=== PATIENT | male | born 1940 | race Caucasian/White ===

== ENCOUNTER 2016-09-28 23:15 | Inpatient (IN) | payer BC ==
--- NOTE | ~2016-09-28 | CN ---
Consultation Report [facility] [address] [place]. [address] NAME: FABIANA SPENCER : 44 STATUS : ADM IN [facility]#: [id number] AGE: 76 ADM/REG DATE : 09/29/16 MR#: [id number] REPORT SERV DATE: 09/30/16 DICTATED BY: GLORIA PORTER DATE: 09/29/16 REPORT STATUS : Draft TRANSCRIBED BY: MODL DATE: 09/29/16 GI CONSULTATION DATE OF CONSULTATION: 09/29/2016 A 76-year-old male patient who was admitted on 09/29/2016. REASON FOR CONSULTATION: Evaluation and management of upper GI bleeding and acute blood loss anemia. HISTORY OF PRESENT ILLNESS: Mr. Spencer is a 76-year-old male patient, who has been seen by Dr. Arauz in the past who presented to [facility] with a chief complaint of weakness, syncopal episode, and dark black tarry stools. The patient states that he had some abdominal discomfort yesterday morning, some dry heaves but no vomiting, became weak. He states he had around 15 black bowel movements yesterday morning. He passed out in his floor. His neighbor found him who activated 911. He was brought in, he was found to have a hemoglobin of 4.9 with a hematocrit of 16.2 with elevated INR of 7.9. He does have a notable history of atrial fibrillation, on chronic Coumadin therapy as well as alcohol abuse, and cirrhosis of the liver. Presently he has been transfused two units of packed red blood cells but no recheck is available and he has also received 2 units of FFP. He states his last drink of alcohol was yesterday morning. He admits to drinking at least a 12-pack of beer a day as well as various types of liquor including what he states recently has been [place]. He states that he has never had DTs before. I have discussed with him he will undergo an EGD either later today or first thing in the morning after his hemoglobin has been adequately treated as well as his INR has been brought down to at least 1.8 or less. Presently he is stable. His vital signs are stable. He is not on any pressors. He is on a Protonix drip as well as an octreotide drip. He had a CT scan of the abdomen and pelvis only showing cardiomegaly and marked cirrhosis. PAST MEDICAL HISTORY: Positive for type 2 diabetes, urinary tract infection, atrial fibrillation on chronic Coumadin therapy with history of ablation as well as cardioversion, hypothyroidism, peripheral neuropathy, hypertension, COPD, alcohol abuse, pneumothorax, carpal tunnel syndrome with release, hemoptysis, BPH with obstruction, Tania-Camacho tear, laminectomy, and chronic kidney disease stage III. SOCIAL HISTORY: Past history of tobacco. He continues to drink what he states is a 12-pack of beer as well as liquor including [place]. No illicit drugs. FAMILY HISTORY: Negative from a GI standpoint. ALLERGIES: NO KNOWN ALLERGIES. HOME MEDICATIONS: Bumex; Coreg; Cardura; Combivent; levothyroxine; and Coumadin. REVIEW OF SYSTEMS: Consultation Report [facility] [id number] [place]. [address] NAME: FABIANA SPENCER : 44 STATUS : ADM IN [facility]#: [id number] AGE: 76 ADM/REG DATE : 09/29/16 MR#: [id number] REPORT SERV DATE: 09/30/16 DICTATED BY: GLORIA PORTER DATE: 09/29/16 REPORT STATUS : Draft TRANSCRIBED BY: JORDAN DATE: 09/29/16 A 10-point review of systems has been obtained with pertinent positives being addressed in the history of present illness. PHYSICAL EXAMINATION: VITAL SIGNS: Temperature 97.9, pulse 94, respirations 17, and blood pressure 111/53. NEUROLOGIC: Reveals an alert, obese male, resting in bed with no obvious focal deficits. GENERAL: He is cooperative. He is in no obvious current distress. He is awake. He is oriented x3. HEAD, EARS, EYES, NOSE, AND THROAT: Anicteric. Pupils equal, round, and reactive to light and accommodation. Normocephalic and atraumatic. NECK: No JVD. No palpable nodes. Supple. LUNGS: Diminished at the bases as well as in the upper lobes without rhonchi or wheeze. CARDIOVASCULAR SYSTEM: Regular rate and rhythm. S1, S2. ABDOMEN: Soft and round. Nondistended. Active bowel sounds in all four quadrants. No rebound, guarding, or organomegaly elicited on exam. EXTREMITIES: 1+ bilateral lower extremity edema. SKIN: Warm, dry, and intact. PERTINENT LABORATORY DATA: Sodium 137, potassium is 3.7, BUN is 37, creatinine is 1.45. White count is 6.4, hemoglobin 4.9, hematocrit 16.2, and platelet count of 109 with an INR of 7.9. Total bilirubin 1.2, alkaline phosphatase 77, ALT 17, AST 36, and albumin is 2.9. His lactate is 5.4. Alcohol level was 45. ASSESSMENT: 1. Upper GI bleed with melena. Differential diagnosis includes peptic ulcer disease, esophageal varices, portal hypertensive gastropathy, AVMs, neoplasm. 2. Acute blood loss anemia. 3. Coagulopathy. 4. History of alcohol abuse. 5. History of atrial fibrillation on chronic Coumadin therapy. 6. Cirrhosis of the liver. PLAN: 1. May have a few ice chips. 2. Transfuse packed red blood cells as well as FFP. 3. Give vitamin K. 4. Most likely EGD in the morning but we will re-evaluate this afternoon in case he needs endoscopy this afternoon. Presently, he has not passed any more blood since coming into the hospital. I did discuss the case with . We will plan on endoscopy and other recommendations to follow. DG/MODL Consultation Report [place] [address] [place]. [address] NAME: FABIANA SPENCER : 44 STATUS : ADM IN PAT#: [id number] AGE: 76 ADM/REG DATE : 09/29/16 MR#: [id number] REPORT SERV DATE: 09/30/16 DICTATED BY: GLORIA PORTER DATE: 09/29/16 REPORT STATUS : Draft TRANSCRIBED BY: JORDAN DATE: 09/29/16 YENIFER Acevedo / [id number] CC: Aline Turner M.D.
--- NOTE | ~2016-09-28 | HP ---
History And Physical [place] [id number] [facility] [place]. [address] NAME: FABIANA SPENCER : 44 STATUS : ADM IN PAT#: [id number] AGE: 76 ADM/REG DATE : 09/29/16 MR#: [id number] REPORT SERV DATE: 09/29/16 DICTATED BY: NICKIE TURNER DATE: 09/29/16 REPORT STATUS : Draft TRANSCRIBED BY: MODNicola DATE: 09/29/16 DATE OF ADMISSION: 09/29/2016 Care of this patient commenced at 3: 20 a.m., and ended at 4:20 a.m., for a total of 60 minutes of critical care time. HISTORY OF PRESENT ILLNESS: This is a 76-year-old patient with known history of type 2 diabetes mellitus, alcohol abuse, atrial fibrillation, hypertension on Coumadin, who presents to the emergency room with a chief complaint of feeling weak and having a syncopal episode at home. The patient complains of some abdominal pain and nausea, but had no vomiting and actually became so weak that he passed out and was noted to have black stool. Black stool and symptoms of weakness have probably been going for at least 1-2 days. The patient was found by his neighbor who brought him to the emergency room. He was evaluated there and was found to have an INR of 7.5 and hemoglobin of 4.9. CT scan of the abdomen and pelvis was done and showed no evidence of any abnormalities. Two large bore IV was started and patient is currently undergoing blood transfusion and then to receive fresh frozen plasma and has already received 10 mg of IV vitamin K. He was started on octreotide and Protonix drip, and is awaiting a bed assignment. Blood pressures have been relatively stable throughout his stay in the ER. So, the patient has no known drug allergies, however, his medication list is questionable and the patient does not seem to remember all of his medications and those will need to be confirmed once the exact med list is available. But, it looks like the patient may be on Bumex, Coreg, Cardura, Combivent inhalers, levothyroxine, and warfarin at home. PAST MEDICAL HISTORY: 1. Significant for type 2 diabetes mellitus. 2. Urinary tract infection. 3. Chronic corneal disease. 4. Atrial fibrillation with ablation and then recurrent atrial fibrillation and eventually the patient underwent direct current cardioversion in 2015 and is pretty much remained in normal sinus rhythm. 5. Hypothyroidism. 6. Peripheral neuropathy. 7. Hypertension. 8. COPD. 9. History of pneumothorax 13 years ago. 10.Carpal tunnel release. 11.Hemoptysis that was evaluated by bronchoscopy in December of 2014. 12.BPH with obstruction. 13.History of Tania-Camacho tear. 14.Laminectomy L3-S1 in [address] Alejandre. 15.History of delirium tremens in 2015. 16.CKD stage III. SOCIAL HISTORY: The patient smokes cigar and cigarettes rather 2 to 3 packs a day for many years and then quit about 13-14 years ago. He, however, continues to drink beer sometimes History And Physical [address] [address] NAME: FABIANA SPENCER : 44 STATUS : ADM IN [facility]#: [id number] AGE: 76 ADM/REG DATE : 09/29/16 MR#: [id number] REPORT SERV DATE: 09/29/16 DICTATED BY: NICKIE TURNER DATE: 09/29/16 REPORT STATUS : Draft TRANSCRIBED BY: JORDAN DATE: 09/29/16 as much as 12 pack a day. His last intake of alcohol was yesterday. He has been at least twice, has 3 children, and currently lives alone. FAMILY HISTORY: Significant for myocardial infarction and Alzheimer's in 1 of his sisters. REVIEW OF SYSTEMS: Per history of present illness. Although, the patient does mention some soreness right side of his chest apparently he had a fall after losing his balance while sitting on the stool and has some pain, but otherwise he denies any chest pain. Currently, he is not nauseated. During the course he has had increased leg swelling for which he is instructed to take Bumex. He denies any fevers or chills or productive cough, and the remainder of a 12-point review of systems is unremarkable. PHYSICAL EXAMINATION: VITAL SIGNS: Currently, the patient's blood pressure is 110/53. O2 saturation is 99% on room air, respiratory rate is 17, temperature is 97.9, and pulse is 94 beats per minute and normal sinus rhythm. The patient is alert and awake, following commands. Although, forgetful at times. SKIN: Warm and dry. HEENT: Head is atraumatic and normocephalic. Pupils are sluggishly reactive. Sclerae anicteric. Conjunctivae are pale. Nasal mucosa within normal limits. Oral mucosa is moist. Tongue is midline. Dentition is fair. NECK: Supple without JVD, lymphadenopathy, or thyromegaly. RESPIRATORY: Lungs are diminished at the bases with occasional crackles. CARDIAC: Reveals regular rate and rhythm. No significant murmurs are heard. ABDOMEN: Obese and nondistended, non-firm. Bowel sounds are present. There is no pain to palpation of the abdomen. No ascites is noted. RECTAL/GENITAL: Deferred. EXTREMITIES: Without cyanosis, clubbing, but there is lower extremity edema at least 1+. NEUROLOGIC: Cranial nerves 2 through 12 are grossly intact. Motor and sensory are intact. There are no focal findings on physical exam. LABORATORY DATA: His current lab work shows a lactic acid level 5.4, sodium of 137, potassium of 3.7, chloride of 97, bicarbonate of 22, BUN 37, creatinine 1.45. Blood sugar is 103, alcohol level is 45. LFTs are within normal limits. White cell count is 6.4, hemoglobin is 4.9, hematocrit is 16, platelet count is 109,000. INR is 7.9. EKG shows ST- segment depressions in the lateral leads suggestive of ischemia. Chest x-ray shows no pulmonary vascular congestion. ASSESSMENT AND PLAN: 1. This is a 76-year-old patient with known history of alcohol abuse who presents with syncope, weakness, and black stools suggestive of an upper GI bleed. The plan of that will be to continue the octreotide drip, Protonix drip, serial H and H will be done and the patient will be transfused 1 unit for a hemoglobin of less than 7.5, INR will be followed closely and FFP and vitamin K will be given as indicated and Coumadin of course will be on hold. 2. The patient's home medications will need to be confirmed. History And Physical [address] [place]. [address] NAME: FABIANA SPENCER : 44 STATUS : ADM IN [facility]#: [id number] AGE: 76 ADM/REG DATE : 09/29/16 MR#: [id number] REPORT SERV DATE: 09/29/16 DICTATED BY: NICKIE TURNER DATE: 09/29/16 REPORT STATUS : Draft TRANSCRIBED BY: MODNicola DATE: 09/29/16 3. Atrial fibrillation. The patient currently in sinus rhythm. 4. COPD, will need bronchodilator protocol. 5. CKD stage III follow electrolytes closely. 6. ETOH abuse. Follow for signs of delirium tremens. Since the patient has a history of this before and has a blood alcohol level that is currently high. 7. Deep venous thrombosis prophylaxis will be with SCDs when needed. 8. GI prophylaxis, the patient already on Protonix drip. 9. The patient will be seen by Gastroenterology and may need an EGD, will be kept n.p.o. 10.All anti-hypertensive medications will be held. 11.Hypothyroidism, TSH will be checked and Synthroid adjusted as needed. 12.Type 2 diabetes mellitus, we will institute subcu sliding scale insulin. So, total critical care time spent on this patient was 60 minutes. He is in critical condition and is at risk for hemodynamic, hepatic, neurologic, and renal failure and decompensation. He is in need of careful volume resuscitation with blood products, neurologic monitoring and treatment, hemodynamic assessment, and assessment and treatment of complex metabolic derangements. /MODNicola Nickie Turner M.D. / [id number] CC: Nickie Turner M.D.
--- NOTE | ~2016-09-28 | OP ---
Record Of Operation [facility] [address] [place]. [address] NAME: FABIANA SPENCER : 44 STATUS : ADM IN [facility]#: [id number] AGE: 76 ADM/REG DATE : 09/29/16 MR#: [id number] REPORT SERV DATE: 10/21/16 DICTATED BY: NELL HANEY DATE: 10/21/16 REPORT STATUS : Draft TRANSCRIBED BY: MODL DATE: 10/21/16 DATE OF PROCEDURE: 10/21/2016 PREOPERATIVE DIAGNOSES: 1. Respiratory failure. 2. Ventilator dependence. POSTOPERATIVE DIAGNOSES: 1. Respiratory failure. 2. Ventilator dependence. PROCEDURE: Tracheostomy, #8 cuffed Shiley trach tube. SURGEON: Nell Haney M.D. ANESTHESIA: General. COMPLICATIONS: None. COUNTS: All counts correct following the procedure. ESTIMATED BLOOD LOSS: 2 mL. PREOPERATIVE INFORMED CONSENT: We discussed risks and benefits of surgery including, but not limited to bleeding, infection, possible loss of airway, possible carotid fistula, possible tracheoesophageal fistula, possible tracheomalacia, and consent is on the chart. PROCEDURE IN DETAIL: The patient was brought to the operating suite and placed on the operating table in the supine position. General endotracheal anesthesia was initiated through the previously existing endotracheal tube. The neck was cleaned, prepped and draped in the usual sterile fashion. A transverse incision was marked out and then using electrocautery, an incision was made with sharp dissection down through the subcutaneous tissues down to the strap muscles. The midline fascia was divided and the strap muscles were retracted laterally. The thyroid isthmus was dissected off the anterior tracheal wall and divided using electrocautery, taking care to cauterize all surrounding vessels. A peanut pusher was used to clean off the anterior tracheal wall and the space between the second and third tracheal ring was scored using electrocautery. A #15-blade scalpel was used to perform tracheostomy. An inferior flap was created using curved Yun scissors and a stay suture was placed on the lower tracheal flap. The endotracheal tube was moved above the tracheostomy site and a #8 cuffed Shiley trach tube was placed through the tracheostomy site without difficulty. The endotracheal tube was removed. The tracheostomy tube was then reconnected to the ventilator and the patient was noted to have good CO2 return and good breath sounds bilaterally. The tracheostomy tube was then sutured to the skin using 2-0 silk suture and a Record Of Operation [address] [place] [facility] [address] NAME: FABIANA SPENCER : 44 STATUS : ADM IN [facility]#: [id number] AGE: 76 ADM/REG DATE : 09/29/16 MR#: [id number] REPORT SERV DATE: 10/21/16 DICTATED BY: NELL HANEY DATE: 10/21/16 REPORT STATUS : Draft TRANSCRIBED BY: MODL DATE: 10/21/16 Thony prado. The patient was taken to the Intensive Care Unit in stable condition. KELLY/JORDAN Nell Haney M.D. / [id number] CC: Aline Turner M.D.
--- NOTE | ~2016-09-28 | DS ---
Discharge Summary [facility] [address] [place] [place]. [address] NAME: FABIANA SPENCER : 44 STATUS : DIS IN PAT#: [id number] AGE: 76 ADM/REG DATE : 09/29/16 MR#: [id number] REPORT SERV DATE: 12/05/16 DICTATED BY: RAMON COSTA DATE: 12/05/16 REPORT STATUS : Draft TRANSCRIBED BY: MODL DATE: 12/05/16 ADMISSION DATE: 09/29/2016 DISCHARGE DATE: 11/04/2016 DISCHARGE DIAGNOSES: 1. Acute hypoxic respiratory failure. 2. Alcohol withdrawal. 3. Acute encephalopathy. 4. Multiple pontine cerebrovascular accidents. 5. Dysphagia. 6. Chronic atrial fibrillation. 7. Hypothyroidism. 8. Type 2 diabetes. 9. Right humerus fracture status post fall. CONSULTS: 1. Critical Care Medicine. 2. ENT. 3. Neurology. 4. GI. PROCEDURES: 1. Intubation on 10/05/2016. 2. Second intubation on 10/14/2016. 3. Tracheostomy on 10/21/2016. 4. PEG tube placement on 10/26/2016. HOSPITAL COURSE: Please see dictated H and P and consult notes as well as interim discharge summaries for full patient history and presentation. In brief summary, the patient is a 76- year-old gentleman who was initially admitted with an upper GI bleed, who then developed alcohol withdrawal with acute respiratory failure and pneumonia. The patient's hospital course was also complicated briefly by shock, acute renal failure, and atrial fibrillation. The patient spent some time in the ICU and was unable to be weaned from the ventilator. He was extubated and reintubated several times and eventually had to require tracheostomy and PEG tube placement. He was then transitioned to our intermediate care unit where he continued to do well. Eventually, the patient was stabilized and will be sent to a long- term vent weaning facility in stable condition. DISCHARGE MEDICATIONS: See please discharge medication reconciliation form. DISPOSITION: The patient was discharged to LTAC in stable condition. FOLLOWUP: The patient will follow up with his physicians at the long-term vent care facility. Discharge Summary [facility] [address] [place] [place]. [address] NAME: FABIANA SPENCER : 44 STATUS : DIS IN PAT#: [id number] AGE: 76 ADM/REG DATE : 09/29/16 MR#: [id number] REPORT SERV DATE: 12/05/16 DICTATED BY: RAMON COSTA DATE: 12/05/16 REPORT STATUS : Draft TRANSCRIBED BY: MODL DATE: 12/05/16 NICANOR/JORDAN Ramon Costa MD / [id number] CC: Aline Turner M.D.
--- NOTE | ~2016-09-28 | OP ---
Record Of Operation [facility] [address] [place]. [address] NAME: FABIANA SPENCER : 44 STATUS : ADM IN [facility]#: [id number] AGE: 76 ADM/REG DATE : 09/29/16 MR#: [id number] REPORT SERV DATE: 10/14/16 DICTATED BY: TAMIKA OCAMPO DATE: 10/14/16 REPORT STATUS : Draft TRANSCRIBED BY: MODNicola DATE: 10/14/16 DATE OF PROCEDURE: PROCEDURE PERFORMED: Oroendotracheal intubation. PREOPERATIVE DIAGNOSIS: Respiratory failure. POSTOPERATIVE DIAGNOSIS: Respiratory failure. DESCRIPTION OF PROCEDURE: The patient was on BiPAP with dried secretions and having difficulty handling secretions. He received 10 mL of IV propofol. We then used a #4 GlideScope blade to look at his airways. He had thick crusty secretions that coated the end of the GlideScope and we had to remove with that out to be able to see beyond it. They were too thick for suction. Using the GlideScope, we were able to directly visualize the vocal cords. We advanced a size 8 oroendotracheal tube beyond the vocal cords without difficulty. We had good color change on the end-tidal CO2 indicator, good direct visualization of the tube advancing beyond the vocal cords and good auscultation of breath sounds bilaterally. On the ventilator now his oxygen saturations is 100%. The patient had no complications. IMPRESSION: Successful oroendotracheal intubation. YASSINE/JORDAN Tamika Ocapmo M.D. / [id number] CC: Kassandra Hawk M.D.
--- NOTE | ~2016-09-28 | CN ---
Consultation Report [facility] [address] [place]. [address] NAME: FABIANA SPENCER : 44 STATUS : ADM IN [facility]#: [id number] AGE: 76 ADM/REG DATE : 09/29/16 MR#: [id number] REPORT SERV DATE: 10/18/16 DICTATED BY: NELL HANEY DATE: 10/18/16 REPORT STATUS : Draft TRANSCRIBED BY: MODL DATE: 10/18/16 CONSULTATION DATE OF CONSULTATION: 10/18/2016 REASON FOR CONSULTATION: Tracheostomy. HISTORY OF PRESENT ILLNESS: Mr. Spencer is a 76-year-old gentleman admitted for multiple medical conditions primarily related to his alcohol abuse including a GI bleed and alcohol withdrawal syndrome. During course of his hospitalization he has required intubation on multiple occasions and most recently was discovered after one of his intubations had suffered a stroke with right-sided hemipareses. They have been unable to wean him from the ventilator. I have been called to see the patient regarding tracheostomy for long-term ventilator management. PAST MEDICAL HISTORY: Type 2 diabetes, UTI, chronic corneal disease, AFib with ablation and recurrent AFib and eventually underwent cardioversion in 2015, hypothyroidism, peripheral neuropathy, hypertension, COPD, carpal tunnel release, hemoptysis, BPH, Tania-Camacho tear, laminectomy L3 through S1 [place] [address] Alejandre, history of delirium tremens, CKD stage 3. SOCIAL HISTORY: The patient smoked cigarettes 2 to 3 packs a day for many years and quit about 13-14 years ago. However, he continues to drink alcohol as much as 12 pack a day, has at least twice, has 3 children, currently lives alone. FAMILY HISTORY: Myocardial infarction, Alzheimer's. PHYSICAL EXAMINATION: GENERAL: The patient is intubated and sedated. Opens his eyes to stimulation. He has dense right hemiparesis. HEENT: Both ears are clear. Nose is clear. Oral cavity, pharynx, endotracheal tube is in place. NECK: Supple. No palpable adenopathy or masses. IMPRESSION: 1. Respiratory failure, ventilator dependence. 2. Cerebrovascular accident with right hemiparesis. RECOMMENDATIONS: Agree with need for tracheostomy. We will discuss with patient's family and we will schedule it at some point in the future. MARYSE Consultation Report [facility] [address] [place]. [address] NAME: FABIANA SPENCER : 44 STATUS : ADM IN PAT#: [id number] AGE: 76 ADM/REG DATE : 09/29/16 MR#: [id number] REPORT SERV DATE: 10/18/16 DICTATED BY: NELL HANEY DATE: 10/18/16 REPORT STATUS : Draft TRANSCRIBED BY: JORDAN DATE: 10/18/16 Nell Haney M.D. / [id number] CC: Aline Turner M.D.
--- NOTE | ~2016-09-28 | OP ---
Record Of Operation [facility] [address] [place] [place]. [address] NAME: FABIANA SPENCER : 42 STATUS : ADM IN PAT#: [id number] AGE: 76 ADM/REG DATE : 09/29/16 MR#: [id number] REPORT SERV DATE: 09/30/16 DICTATED BY: YAMIL ESCUDERO DATE: 09/30/16 REPORT STATUS : Draft TRANSCRIBED BY: MODL DATE: 09/30/16 DATE OF PROCEDURE: 09/30/2016 INPATIENT PROCEDURE NOTE REASON FOR PROCEDURE: Melena and concern for GI bleeding. PROCEDURE PERFORMED: Upper endoscopy or EGD. PROCEDURE IN DETAIL: Procedure was performed without difficulty, and the patient tolerated the procedure well. Monitored anesthesia care was utilized for sedation. There were no immediate complications and estimated blood loss was minimal. After the patient was adequately sedated, the adult endoscope was advanced through the oropharynx and into the patient's esophagus without difficulty. There were no abnormalities or any signs of bleeding in the entire esophagus. Upon entry into the stomach, there were only scant traces of heme in the body and fundus; however, there was evidence of congestion in the prepyloric area and evidence of a 1 cm crated gastric ulcer just proximal to the pylorus. There were no stigmata of high risk for rebleeding. Biopsies were taken from around the edge of the crated ulcer for histology and for H. pylori assessment. Estimated blood loss was minimal. Examination of the duodenum was likewise unremarkable with no suggestion of any potential source of active bleeding. IMPRESSION: Crated gastric ulcer, likely source of the patient's melena, now with no further bleeding. Biopsies were taken of the ulcer edge for histology. RECOMMENDATIONS: 1. Would continue the patient on a continuous Protonix drip for another 48 hours and then switch to twice daily therapy which will need to be continued for 12 weeks. 2. Can start the patient on a clear liquid diet and advance cautiously over the next several days. 3. Will need repeat endoscopy for assessment of healing in 12 weeks. 4. Would wait to restart Coumadin for three days. [facility]/JORDAN Yamil Escudero MD / [id number] CC: Veda Cobb M.D.
--- NOTE | ~2016-09-28 | CN ---
Consultation Report [facility] [address] [place]. [address] NAME: FABIANA SPENCER : 44 STATUS : ADM IN [facility]#: [id number] AGE: 76 ADM/REG DATE : 09/29/16 MR#: [id number] REPORT SERV DATE: 10/09/16 DICTATED BY: DATE: REPORT STATUS : Draft TRANSCRIBED BY: MODL DATE: 10/09/16 NEUROLOGY CONSULTATION DATE OF CONSULTATION: 10/09/2016 REASON FOR CONSULT: Encephalopathy. HISTORY OF PRESENT ILLNESS: This is a 76-year-old male who presented to [facility] secondary to GI bleed, status post endoscopy. The patient was noted to have resolution of the GI bleed, was off propofol drip on 10/07/2016. However, despite being off propofol drip for almost 48 hours, the patient still was noted to only open his eyes and was not noted to have following commands or spontaneous movements. The patient also was noted to have hypernatremia was that corrected during the hospital stay and subsequently improved. The patient during the initial hospitalization was receiving IV multivitamin, thiamine, and folate secondary to chronic alcohol usage. The patient was on DT precaution during the hospital stay. No seizure-like activity was otherwise observed. Prior to the hospitalization, no reports of recent illness was noted. PAST MEDICAL HISTORY: Significant for type 2 diabetes, urinary tract infection, chronic corneal disease, as well as history of atrial fibrillation, status post ablation with recurrent atrial fibrillation. The patient was noted to have hypothyroidism, peripheral neuropathy, hypertension, COPD , history of pneumothorax in the distant past. The patient does have a history of hemoptysis evaluated with bronchoscopy in 2014, history of Tania- Camacho tear, history of chronic alcohol usage, as well as history of DT in 2014, and was noted to be CKD stage 3. SOCIAL HISTORY: The patient does smoke cigar as well as cigarette. The patient has had a history of alcohol usage. Apparently, the patient does not have current tobacco usage, quit roughly 13 years ago. FAMILY HISTORY: According to medical records, significant for myocardial infarction as well as Alzheimer's. REVIEW OF SYSTEMS: Unable to be obtained at this time secondary to the patient's current mental status. ALLERGIES: THE PATIENT REPORTS NO KNOWN DRUG ALLERGIES. CURRENT MEDICATIONS: Consist of Coumadin, IV thiamine, as well as IV vancomycin, Lopressor, NovoLog, Protonix , and Zosyn. The patient was given IV fluids secondary to hypernatremia. He also received one dose of morphine on 10/08/2016 at 1731 hours. If the patient is also on Cardene drip. PHYSICAL EXAMINATION: Consultation Report [facility] [address] [place] [address] NAME: FABIANA SPENCER : 42 STATUS : ADM IN PAT#: [id number] AGE: 76 ADM/REG DATE : 09/29/16 MR#: [id number] REPORT SERV DATE: 10/09/16 DICTATED BY: DATE: REPORT STATUS : Draft TRANSCRIBED BY: MODL DATE: 10/09/16 VITAL SIGNS: At the time of evaluation, the patient was noted to have vital signs with T- max of 100.4, heart rate of 93 to 121, respirations of 11 to 29, and blood pressure of 141 to 165 over 72 to 83. GENERAL: The patient is well developed, well nourished, in no acute distress. CARDIOVASCULAR: Regular rate and rhythm. No carotid bruits were otherwise auscultated. PULMONARY: Clear to auscultation bilaterally. NEUROLOGICAL: Generally, the patient was intubated, not on any sedation, nonverbal, not following commands. The patient will open eyes to noxious stimulation. At the time of my evaluation, the patient was noted to have left gaze preference, but was noted to have horizontal eye movement on oculocephalic maneuver. Trace blink to threat response was noted. Appeared to be somewhat more prominent on the left. The patient demonstrated bilateral corneal reflex as well as the gag reflex and demonstrated eye opening to noxious stimulation in bilateral face. The patient otherwise demonstrated an eye opening and grimace to noxious stimulation in bilateral upper extremity, not in bilateral lower extremities. Deep tendon reflex was attenuated throughout. The patient demonstrated no spontaneous movement of the bilateral upper or lower extremity at the time of my evaluation. Cerebellar and gait evaluation was unable to be obtained secondary to the patient's mental status and lack of spontaneous movement. LABORATORY STUDIES: Demonstrated white blood cell count of 19.5, hemoglobin of 9.9, hematocrit of 32.8, and platelet count of 240. The patient was noted to have procalcitonin of 1.21. Sodium of 153, potassium of 3.5, chloride of 117, bicarb 27, BUN of 22, creatinine of 1.15, glucose of 212, calcium of 8.9, magnesium 2.2. ABG shows pH of 7.48, pCO2 of 39, pO2 of 112, bicarb 27.8, O2 saturation of 98.5. Urinalysis demonstrated moderate leukocyte esterase, but negative nitrite that was performed on 10/07/2016. CT scan of the brain otherwise demonstrated generalized atrophy, but no acute process was seen. IMPRESSION: Encephalopathy. Propofol has been off since 10/07/2016. The patient still demonstrates minimal activity except for spontaneous eye opening as was to noxious stimulation. No clear movement of the extremity was seen during the evaluation. We will obtain EEG and MRI of the brain without contrast. We will recommend continue thiamine. We will also check ammonia level in the morning. I am at this time concerned for possible prolonged effect of sedation versus a metabolic etiology versus systemic infection versus likely multifactorial reason given hypernatremia also concern for possibility of [employer] process. We will check MRI of the brain for evaluation. RECOMMENDATION: 1. Supportive care. 2. MRI of the brain without contrast. 3. EEG. 4. Continue thiamine. 5. Ammonia level as well as TSH and free T4 level in the morning. Consultation Report [address] [place]. [address] NAME: FABIANA SPENCER : 42 STATUS : ADM IN [facility]#: [id number] AGE: 76 ADM/REG DATE : 09/29/16 MR#: [id number] REPORT SERV DATE: 10/09/16 DICTATED BY: DATE: REPORT STATUS : Draft TRANSCRIBED BY: JORDAN DATE: 10/09/16 [facility]/JORDAN Kaden Grimaldo MD / [id number] CC: Vead Domínguez MD
--- NOTE | ~2016-09-28 | EEG ---
Electroencephalogram [facility] [address] [facility] [place]. [address] NAME: FABIANA SPENCER : 44 STATUS : ADM IN PAT#: [id number] AGE: 76 ADM/REG DATE : 09/29/16 MR#: [id number] REPORT SERV DATE: 10/10/16 DICTATED BY: DATE: REPORT STATUS : Draft TRANSCRIBED BY: MODL DATE: 10/09/16 NEUROLOGY EEG REPORT CLINICAL INDICATION: Comatose state, encephalopathy. DISCUSSION: This EEG was performed using 10/20 electrode placement system. During the EEG study, symmetric background activity was noted with predominant occipital rhythm of roughly 6 hertz. Photic stimulation was performed with no obvious driving response. Generalized slowing was seen during the EEG study and throughout the EEG evaluation. Hyperventilation was subsequently not performed secondary to the patient's intubated status. The patient, otherwise, remains in like comatose state throughout the EEG study. No focal abnormalities, seizure activity, or seizure discharge was otherwise noted. INTERPRETATION: This EEG study obtained during like comatose state may be considered mildly abnormal secondary to presence of mild generalized slowing, but otherwise, no focal abnormalities, seizure activity, or seizure discharge was seen. Clinical correlation is recommended. [facility]/MODNicola Kaden Grimaldo MD / [id number] CC: Kassandra Hawk M.D.
--- NOTE | ~2016-09-28 | IDS ---
Interim Discharge Summary [facility] [address] [place]. [address] NAME: FABIANA SPENCER : 44 STATUS : ADM IN PAT#: [id number] AGE: 76 ADM/REG DATE : 09/29/16 MR#: [id number] REPORT SERV DATE: 10/28/16 DICTATED BY: NICKIE TURNER DATE: 10/28/16 REPORT STATUS : Draft TRANSCRIBED BY: MODL DATE: 10/28/16 ADMISSION DATE: 09/29/2016 DISCHARGE DATE: Date of previous interim discharge summary dictation is October 14. Date of today's interim summary dictation is October 28, 2016. For details of the patient's previous admission and hospital course up until the 14 of October, please see the interim discharge summary from the 14 of October. So since that time, the patient has failed extubation several times and required tracheostomy. This was done on the 21 of [address] Art Davenport and #8 cuffed Shiley trach was placed without difficulty. Since that time, we have been doing spontaneous breathing trials with the patient. He has done relatively well, although he still is unable to last the entire day without being put back on the vent. On the evening of the 27 of October, the patient had some respiratory difficulty. There was some concern about possible PE. A CTA of the chest was done and did not show any evidence of PE. The reason for this also was that there was some concern that the patient was not on significant anticoagulation; however, the patient does have a known history of atrial fibrillation and was on chronic Coumadin at home and that is what brought him to the hospital with a GI bleed. He had a gastric ulcer and as per EGD, Coumadin was held for a while, but then actually restarted and then stopped for the trach and then restarted and then stopped for the PEG. So, he has been on some form of Coumadin, but not quite therapeutic. In any event, CTA of the chest was done, and there was no evidence of pulmonary emboli. Extensive patchy infiltrates of the left lower lobe consistent with moderate large acute pneumonia were noted; however, and so the patient was cultured and started on Zosyn and vancomycin. So, the patient also required a brief period of Levophed, which is now currently off. Antibiotics are being continued. Of note, the patient was noted to have pretty watery diarrhea on the afternoon on the 28 of October and so a bowel management system was placed and stool for C. diff was sent. Dysphagia status post prolonged intubation and ischemic infarct within bilateral kaci as noted on 10 of October. The patient had been on quite a long course of thiamine and this has been discontinued. His encephalopathy is pretty much the same. He does not always follow commands, appears very weak, and this has really not changed. There is no evidence of any seizure activity. Because of the dysphagia and trach, the patient then had a PEG tube placed on the 25 of October and since that time, we have resumed his medications and tube feeds and he seems to be tolerating those well. ADMITTING DIAGNOSES: 1. Gastrointestinal bleed. Known history of alcohol abuse. So, hemoglobin has been stable and Coumadin has been restarted. We will need to follow hemoglobin and hematocrit closely since the patient has a known history of gastrointestinal bleeding. 2. Chronic obstructive pulmonary disease. The patient continues on bronchodilator therapy. 3. Hypothyroidism. Synthroid is continued. Interim Discharge Summary [address] [place]. [address] NAME: FABIANA SPENCER : 42 STATUS : ADM IN [facility]#: [id number] AGE: 76 ADM/REG DATE : 09/29/16 MR#: [id number] REPORT SERV DATE: 10/28/16 DICTATED BY: NICKIE TURNER DATE: 10/28/16 REPORT STATUS : Draft TRANSCRIBED BY: JORDAN DATE: 10/28/16 4. Type 2 diabetes mellitus. Sliding insulin scale and Levemir. 5. History of fracture, right humerus. No changes there. This is an old fracture as described in the previous interim discharge summary. 6. Right knee pleural effusion status post drainage by Dr. Pineda, remain stable. 7. Chronic atrial fibrillation. He has had an episode of atrial fibrillation with rapid ventricular response and was started on amiodarone drip, which has now been transitioned to a p.o. amiodarone, 200 mg b.i.d. If this controls his atrial fibrillation, may not need to necessarily be on Lopressor and this may even be discontinued, and as mentioned above, Coumadin has been restarted with close followup of hemoglobin and hematocrit and INR. Pharmacy is dosing the Coumadin. 8. Infectious disease. Just to summarize so far, the culture results of this patient; he had a sputum culture that was sent on the 05 of October that grew out Haemophilus influenza, methicillin-resistant Staphylococcus aureus, and Streptococcus agalactiae and this was treated and the patient also had an Escherichia coli urinary tract infection, which was also treated. The patient was then on vancomycin and Zosyn. Currently, there is a suspicion for left lower lobe pneumonia. He has been cultured again, and so we will need to see what that culture has grown out and then adjust antibiotics as needed and also there is a concern for possible Clostridium difficile and so as of this dictation, stool for Clostridium difficile is pending. Overall, the patient's condition has not markedly improved. Discharge planning is underway for possibly [facility]. I have discussed the patient's progress with his son, Jordan and he apparently is coming this weekend on the . Code status again was discussed and the patient remains a full code. /MODL Nickie Turner M.D. / [id number] CC: Nickie Turner M.D.
--- NOTE | ~2016-09-28 | EGD ---
EGD REPORT [facility] [address] [place]. [address] NAME: SALVADOR SPENCER : 42 STATUS : ADM IN PAT#: [id number] AGE: 76 ADM/REG DATE : 09/29/16 MR#: [id number] REPORT SERV DATE: 10/26/16 DICTATED BY: YAMIL ESCUDERO DATE: 10/26/16 REPORT STATUS : Draft TRANSCRIBED BY: [facility] DATE: 10/26/16 Endoscopy Center Patient Name: Salvador Spencer Date of : 1940 Attending MD: YAMIL ESCUDERO MD Procedure Date No Time: 10/26/2016 Procedure: Upper GI endoscopy Indications: Place PEG because patient is unable to eat, Place PEG due to aspiration risk, Place PEG because patient requires ventilator support Medicines: Monitored Anesthesia Care Complications: No immediate complications. Estimated blood loss: Minimal. Procedure: Pre-Anesthesia Assessment: - ASA Grade Assessment: IV - A patient with severe systemic disease that is a constant threat to life. After obtaining informed consent, the endoscope was passed under direct vision. Throughout the procedure, the patient's blood pressure, pulse, and oxygen saturations were monitored continuously. The GIF [id number] was introduced through the mouth, and advanced to the second part of duodenum. The upper GI endoscopy was accomplished without difficulty. The patient tolerated the procedure well. Findings: The examined esophagus was normal. The examined duodenum was normal. The entire examined stomach was normal. The patient was placed in the supine position for PEG placement. The stomach was insufflated to appose gastric and abdominal morales. A site was located in the body of the stomach with excellent transillumination and manual external pressure for placement. The abdominal wall was marked and prepped in a sterile manner. The area was anesthetized with 5 mL of 1% lidocaine. The trocar needle was introduced through the abdominal wall and into the stomach under direct endoscopic view. A snare was introduced through the endoscope and opened in the gastric lumen. The guide wire was passed through the trocar and into the open snare. The snare was closed around the guide wire. The endoscope and snare were removed, pulling the wire out through the mouth. A skin incision was made at the site of needle insertion. The externally removable 20 Fr EndoVive Safety gastrostomy tube was lubricated. The G-tube was passed over the guide wire through the mouth, and into the stomach. The trocar needle was removed, and the gastrostomy tube was pulled out from the stomach through the skin. The guide wire was removed, and the external bumper attached to the EGD REPORT [address] [place]. [address] NAME: SALVADOR SPENCER : 42 STATUS : ADM IN [facility]#: [id number] AGE: 76 ADM/REG DATE : 09/29/16 MR#: [id number] REPORT SERV DATE: 10/26/16 DICTATED BY: YAMIL ESCUDERO DATE: 10/26/16 REPORT STATUS : Draft TRANSCRIBED BY: [employer] DATE: 10/26/16 gastrostomy tube. The feeding tube was then cut to an appropriate length. The final position of the gastrostomy tube was confirmed by skin marking noted to be 3 cm at the external bumper. The final tension and compression of the abdominal wall by the PEG tube and external bumper were checked and revealed that the bumper was loose and lightly touching the skin. The feeding tube was capped, and the tube site was cleaned and dressed. Estimated blood loss was minimal. Impression: - An externally removable PEG placement was successfully completed. Recommendation: - Please follow the post-PEG recommendations including: antibiotic ointment to site, change dressing once per day, clean site with soap and water daily and dry thoroughly, remove dressing after 2 weeks, NPO x4 hrs then water today, may use PEG today for meds and water and may use PEG tomorrow for feedings. Procedure Code(s): --- Professional --- 68764, Esophagogastroduodenoscopy, flexible, transoral; with directed placement of percutaneous gastrostomy tube Diagnosis Code(s): --- Professional --- R63.3, Feeding difficulties Z43.1, Encounter for attention to gastrostomy Z99.11, Dependence on respirator [ventilator] status CPT copyright 2013 [employer]. All rights reserved. The codes documented in this report are preliminary and upon presales consultant review may be revised to meet current compliance requirements. Yamil Escudero MD YAMIL ESCUDERO MD 10/26/2016 12:36 PM This report has been signed electronically. Number of Addenda: 0 Note Initiated On: 10/26/2016 12:09 PM Scope Withdrawal Time 0 hours 0 minutes 0 seconds [address] [place] [address]
--- NOTE | ~2016-09-28 | OP ---
Record Of Operation [facility] [address] [place]. [address] NAME: FABIANA SPENCER : 44 STATUS : ADM IN [facility]#: [id number] AGE: 76 ADM/REG DATE : 09/29/16 MR#: [id number] REPORT SERV DATE: 10/05/16 DICTATED BY: TARA LLOYD DATE: 10/05/16 REPORT STATUS : Draft TRANSCRIBED BY: MODL DATE: 10/05/16 DATE OF PROCEDURE: 10/05/2016 PROCEDURE: Endotracheal intubation. INDICATION: Hypoxic respiratory failure. Pre-oxygenated 100% oxygen monitored by blood pressure, EKG, and pulse oximetry. Endotracheal tube 8.0 placed under direct laryngoscopic vision to 24 cm. cords confirmed by end-tidal CO2 monitor. Good breath sounds bilaterally. Sat 100%. Post-chest x-ray ordered. OG tube placed without difficulty. [facility]/JORDAN Tara Lloyd M.D. / [id number] CC: Kassandra Hawk M.D.
--- NOTE | ~2016-09-28 | OP ---
Record Of Operation [facility] [address] [place]. [address] NAME: FABIANA SPENCER : 44 STATUS : ADM IN [facility]#: [id number] AGE: 76 ADM/REG DATE : 09/29/16 MR#: [id number] REPORT SERV DATE: 10/05/16 DICTATED BY: TARA LLOYD DATE: 10/05/16 REPORT STATUS : Draft TRANSCRIBED BY: MODL DATE: 10/05/16 DATE OF PROCEDURE: 10/05/2016 PROCEDURE: Bronchoscopy. INDICATION: Airway clearance of secretions. Informed consent obtained from patient's family after going over risks and benefits of the procedure. The patient is monitored by blood pressure, EKG, and pulse oximetry. Olympus bronchoscope introduced via endotracheal tube. FINDINGS: Secretions in the lower lobe were removed with gentle lavage. Tube is in an appropriate position. The patient tolerated the procedure well. [facility]/JORDAN Tara Lloyd M.D. / [id number] CC: Kassandra Hawk M.D.
--- NOTE | ~2016-09-28 | IDS ---
Interim Discharge Summary [facility] [address] [place]. [address] NAME: FABIANA SPENCER : 44 STATUS : ADM IN [facility]#: [id number] AGE: 76 ADM/REG DATE : 09/29/16 MR#: [id number] REPORT SERV DATE: 10/14/16 DICTATED BY: NICKIE TURNER DATE: 10/14/16 REPORT STATUS : Draft TRANSCRIBED BY: MODNicola DATE: 10/14/16 ADMISSION DATE: 09/29/2016 DISCHARGE DATE: ADMISSION DIAGNOSES: 1. GI bleed. 2. Acute blood loss anemia. 3. Alcohol abuse active. 4. Chronic atrial fibrillation on Coumadin. 5. Supranormal INR. 6. Type 2 diabetes mellitus. 7. Hypertension. 8. COPD. 9. History of delirium tremens. 10.Hypothyroidism. 11.History of right humeral fracture in March 2016. CONSULTANTS DURING THIS HOSPITALIZATION: Were to 1. Dr. Verduzco, Gastroenterology. 2. Neurology. 3. Orthopedic Surgery. CURRENT PROBLEM LIST: 1. GI bleed. Patient on Coumadin for chronic atrial fibrillation. The patient came in with a chief complaint of melenic stools and abdominal pain. INR was greater than 7. The patient was admitted to the ICU and Gastroenterology was consulted. INR was corrected and the patient underwent EGD on the 30 of September that showed a crated gastric ulcer proximal to the pylorus. No stigmata of bleeding was seen. Biopsies were taken and showed antral mucosa with chronic active gastritis, immunochemistry for H. pylori was negative. No intestinal metaplasia or dysplasia was seen. The patient was stabilized and resuscitated with blood. INR was corrected and the patient was eventually able to be transferred to the floor on the 30 of September. 2. Alcohol abuse active. The patient has a long history of alcoholism and stopped for about 5 years; however, since his , he stopped and started drinking after his . When he came in to the emergency room, his blood alcohol level was 45. The patient was treated with multivitamins and thiamine and started on DT protocol. However, when he was moved to the floor, he went into florid delirium tremens, required transfer back to the MICU. This occurred on the 02 of October. The patient then became hypoxic and more than likely, aspirated and required intubation mechanical ventilation on the which was followed by bronchoscopy. Sputum cultures were sent on the and grew out Haemophilus influenza, MRSA, and Streptococcus agalactiae. He also grew E. coli out of the urinary culture and has been on vancomycin and Zosyn for 7 days now. The patient was given a trial of extubation on the 12 of October, however required re-intubation on the 14 of October because of inability to handle secretions. 3. Encephalopathy more than likely multifactorial. The patient was seen by Neurology. Thiamine was continued. The patient had an EEG. An EEG was done on the of Interim Discharge [address] [address] NAME: FABIANA SPENCER : 42 STATUS : ADM IN [facility]#: [id number] AGE: 76 ADM/REG DATE : 09/29/16 MR#: [id number] REPORT SERV DATE: 10/14/16 DICTATED BY: NICKIE TURNER DATE: 10/14/16 REPORT STATUS : Draft TRANSCRIBED BY: JORDAN DATE: 10/14/16September that showed no evidence of any seizure activity. CT scan of the brain was done on the that showed stable moderate to severe atrophy. Retained secretions in the sphenoid sinuses. MRI of the brain without contrast was done on and showed what appears to be an acute ischemic infarct within the bilateral kaci. The patient continues to slowly recover from his stroke but will need intensive physical therapy. 4. COPD. The patient has been on bronchodilator therapy throughout his hospitalization. 5. Hypothyroidism. Synthroid has been continued. 6. Type 2 diabetes mellitus. Sliding scale insulin and Levemir while on tube feeds. 7. History of fracture of the right humerus. The patient was followed by Dr. Arboleda from orthopedic surgery who has seen the patient, on an outpatient basis and apparently this fracture has been present since March 2016. 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 The patient declined any surgical treatment at that time and under current condition, it appears that there has been no new or additional trauma to the arm and surgical intervention is not recommended at this time. 8. Right knee pleural effusion. The patient was seen by Orthopedic surgery Dr. Pineda and is status post TAP of the right knee that more than likely represents gout. 9. History of chronic atrial fibrillation. This has been stable and the patient continues on Lopressor and sliding scale Coumadin with a therapeutic INR. 10.The patient's condition was discussed with his son, Jordan Spencer on the afternoon of October 14. Topics of possible tracheostomy and code status were mentioned to Mr. Jordan Spencer and further discussion with him and his brothers will be undertaken so that some further planning for patient care can be made, that is tracheostomy versus comfort measures or even palliative care. Code status was discussed with the patient remains a full code until the patient's family has time enough to make a decision. PACO/JORDAN Nickie Turner M.D. / [id number] CC: Kassandra Hawk M.D.
--- NOTE | ~2016-09-28 | OP ---
Record Of Critical access hospital [address] [place]. [address] NAME: FABIANA SPENCER : 42 STATUS : ADM IN [facility]#: [id number] AGE: 76 ADM/REG DATE : 09/29/16 MR#: [id number] REPORT SERV DATE: 10/14/16 DICTATED BY: JONA ARBOLEDA DATE: 10/14/16 REPORT STATUS : Draft TRANSCRIBED BY: MODL DATE: 10/14/16 DATE OF PROCEDURE: 10/14/2016 REPORT TITLE: Inpatient Consult BODY AFTER REPORT TITLE: CHIEF COMPLAINT: Right shoulder fracture. REQUESTING PHYSICIAN: Aline Turner M.D. HISTORY: A 76-year-old male known to me through previous treatment of right proximal humerus fracture, which he suffered in March of 2016. This progressed to a malaligned delayed union. He declined any surgical treatment and was lost to followup. He is currently admitted for multiple medical conditions primarily related to his alcohol abuse including in GI bleeds and alcohol withdrawal. He is currently intubated. There was no new traumatic event to the right shoulder apparent. The fracture was noted on chest x-ray and subsequently dedicated views of the shoulder were performed. PAST MEDICAL HISTORY: Type 2 diabetes, history of atrial fibrillation, hypothyroidism, hypertension, COPD, alcohol abuse, and chronic kidney disease. CURRENT MEDICATIONS: Bumex, Coreg, Cardura, Combivent inhaler, Synthroid, and Jantoven. ALLERGIES: NO KNOWN DRUG ALLERGIES. SOCIAL HISTORY: Positive smoker in the past, but recently quit. He has a history of alcohol abuse. FAMILY HISTORY: Noncontributory. REVIEW OF SYSTEMS: Not obtainable as he is currently intubated and sedated. PHYSICAL EXAMINATION: VITAL SIGNS: Temperature 98.3, heart rate 82, respirations 21, blood pressure 124/75. GENERAL: He is an elderly-appearing male intubated and sedated. HEENT: Normocephalic, atraumatic. LUNGS: Decreased breath sounds. HEART: Irregular. ABDOMEN: Nontender. EXTREMITIES: There was no evidence of recent trauma. SKIN: No acute skin lesions. No gross deformity. NEUROLOGIC: Extremities are well perfused with less than two-second capillary refill and the right upper extremity in particular has no significant swelling or ecchymosis surrounding the shoulder. There is a palpable motion at the fracture site. Record Of [facility] hospital [address] [place]. [address] NAME: FABIANA SPENCER : 42 STATUS : ADM IN [facility]#: [id number] AGE: 76 ADM/REG DATE : 09/29/16 MR#: [id number] REPORT SERV DATE: 10/14/16 DICTATED BY: JONA ARBOLEDA DATE: 10/14/16 REPORT STATUS : Draft TRANSCRIBED BY: MODNicola DATE: 10/14/16 IMAGING: X-raysshow a right proximal humerus fracture nonunion with severe displacement. IMPRESSION: Chronic right proximal humeral nonunion. PLAN: No surgery indicated at this point. Recommend symptomatic treatment. As he awakens, he may use the arm within his range of comfort. He may use a sling as needed, but this is not mandatory. We will plan to see him back for outpatient followup shortly after he has recovered and discharged from the hospital to repeat x-rays and discuss any subsequent care that may be necessary. Call for any questions. Thank you for the consultation. ANNIA/JORDAN Jona Arboleda M.D. / [id number] CC: Kassandra Hawk M.D.
[~2016-09-28 23:15] MED LIST: *UNABLE1; *UNABLE3; AMB5 PO; APPLE CIDER VINEGAR; APPLE CIDER VINEGAR PO; ASAB PO; ATROPINE SUL1 % OPH; BUM1 PO; BUM5 PO; C25 PO; CARDU2 PO; CARDURA8 MG PO; CENTRUM TAB1 TAB PO; CIP5 PO; COLCRYS0.6 MG PO; COMBIVENT INH; COMBIVENT RESPIM4 GM INH; COMBIVENT RESPIMAT INH; CORDARONE PO; COREG12 PO; COREG3 PO; COREG6 PO; DITRO5 PO; ELESTAT0.05 % OPH; ENABLEX7.5 PO; EYE DROP OPH; FISH OIL1200 MG PO; FISH-EPA1000 MG PO; FLOMAX4 PO; FOLIC PO; GENTEAL 15 ML O15 ML OPH; GLUCCHONDR PO; JANTOVEN1 MG PO; JANTOVEN4 MG PO; LAN125 PO; LAN25 PO; LEVEMFLXPN SC; LEVOTHYROXIN50 MCG PO; LORTAB 10/325 PO; MAGOX4 PO; MELATONIN5 M1 PO; MULTIPLE VIT PO; NEUR100 PO; NEUR300 PO; NOVOPEN SC; P10 PO; P5 PO; PACERONE200 MG PO; PCET PO; PLAQ200B PO; POT GLUCONAT550 M1 PO; POTASSIUM PO; PREV30 PO; PRILO PO; SYN.05 PO; SYSTANE OP; SYSTANE ULTR OP; VITAMIN C500 M3 PO; VITC500 PO; VOLTAREN1 % TOP
[2016-09-29 00:57] LABS: BASOPHILS 0.9 %; BASOPHILS ABSOLUTE 0.06 10/3/uL (0.0-0.16); EOSINOPHILS 0.3 %; EOSINOPHILS ABSOLUTE 0.02 10/3/uL (0.0-0.53); ER CBC TAT 0 Hrs 11 Mins; IMMATURE GRANULOCYTES 1.2 %; IMMATURE GRANULOCYTES ABSOLUTE 0.08 10/3/uL (0.0-0.11); LYMPHOCYTES 11.5 %; LYMPHOCYTES ABSOLUTE 0.74 10/3/uL (0.67-4.30); MEAN CORPUSCULAR VOLUME 94.2 fL (80-100); MEAN PLATELET VOLUME 9.8 fL (9.2-13.0); MONOCYTES 9.9 %; MONOCYTES ABSOLUTE 0.64 10/3/uL (0.21-1.20); NEUTROPHILS 76.2 %; WHITE BLOOD CELLS 6.4 10/3/uL (4.5-10.5)
[2016-09-29 00:58] LABS: HEMATOCRIT 16.2 % (40.0-51.0); HEMOGLOBIN 4.9 g/dL (13.6-17.8); MEAN CORPUS HGB CONC 30.2 g/dL (32.0-36.0); MEAN CORPUSCULAR HEMOGLOB 28.5 pg (26.0-34.0); PLATELET COUNT 109 10/3/uL (150-400); RBC DISTRIBUTION WIDTH 22.4 % (12.0-16.0); RED CELL COUNT 1.72 10/6/uL (4.7-6.1)
[2016-09-29 00:59] LABS: MANUAL DIFF NO %
[2016-09-29 01:06] LABS: PARTIAL THROMBO TIME 56.6 SEC (22.5-37.2)
[2016-09-29 01:07] LABS: INTERNATIONAL NORMAL RATI 7.9 UNITS (-); PROTIME (NOT ORD) 66.1 SEC (12.0-14.5)
[2016-09-29 01:14] LABS: A/G RATIO 0.8 (0.7-1.9); ALBUMIN 2.9 G/DL (3.5-5.0); ALCOHOL 45 MG/DL (0); ALKALINE PHOSPHATASE 77 U/L (45-117); CALCIUM, SERUM 7.9 MG/DL (8.5-10.4); CHLORIDE, SERUM 97 MMOL/L (96-112); CREATININE 1.45 MG/DL (0.70-1.30); GFR AFRICAN AMERICAN 55 ML/MIN (>=60); GFR NON AFRICAN AMERICAN 47 ML/MIN (>=60); GLOBULIN 3.6 G/DL (2.5-4.1); GLUCOSE, SERUM 103 MG/DL (60-99); POTASSIUM, SERUM 3.7 MMOL/L (3.5-5.3); SGOT(AST) 36 U/L (5-40); SGPT(ALT) 17 U/L (5-65); SODIUM, SERUM 137 MMOL/L (135-148); TOTAL PROTEIN 6.5 G/DL (6.0-8.5)
[2016-09-29 01:17] LABS: BUN (BLOOD UREA NITROGEN) 37 MG/DL (6-23); CO2 (CARBON DIOXIDE) 22 MMOL/L (24-34); TOTAL BILIRUBIN 1.2 MG/DL (0-1.2)
[2016-09-29 01:27] LABS: STOMATOCYTES 1+ (3-10/OIF) (0-2/OIF)
[2016-09-29 01:28] LABS: OVALOCYTES 1+ (3-10/OIF) (0-2/OIF); POIKILOCYTOSIS 1+ (5-10/OIF) (0-5/OIF)
[2016-09-29] MEDS ORDERED: JANTOVEN3 MG PO (03:58)
[2016-09-29] MEDS ORDERED: SYN.05 PO (03:58)
[2016-09-29] MEDS ORDERED: COMBIVENT RESPIM4 GM INH (03:58)
[2016-09-29] MEDS ORDERED: BUM1 PO ×2 (03:58→03:59)
[2016-09-29] MEDS ORDERED: COREG12 PO (03:59)
[2016-09-29] MEDS ORDERED: CARDURA8 MG PO (03:59)
[2016-09-29] MEDS ORDERED: *UNABLE1 (04:00)
[2016-09-29 11:17] LABS: HEMATOCRIT 21.2 % (40.0-51.0); HEMOGLOBIN 6.6 g/dL (13.6-17.8)
[2016-09-29 11:33] LABS: BUN (BLOOD UREA NITROGEN) 39 MG/DL (6-23); CALCIUM, SERUM 8.5 MG/DL (8.5-10.4); CHLORIDE, SERUM 102 MMOL/L (96-112); CO2 (CARBON DIOXIDE) 26 MMOL/L (24-34); CREATININE 1.37 MG/DL (0.70-1.30); GFR AFRICAN AMERICAN 58 ML/MIN (>=60); GFR NON AFRICAN AMERICAN 50 ML/MIN (>=60); GLUCOSE, SERUM 97 MG/DL (60-99); POTASSIUM, SERUM 3.8 MMOL/L (3.5-5.3); SODIUM, SERUM 142 MMOL/L (135-148)
[2016-09-29 11:36] LABS: CPK 165 U/L (0-200); TROPONIN I 0.25 NG/ML (<0.05)
[2016-09-29 11:49] LABS: INTERNATIONAL NORMAL RATI 1.7 UNITS (-); PARTIAL THROMBO TIME 32.8 SEC (22.5-37.2)
[2016-09-29 11:50] LABS: PROTIME (NOT ORD) 20.2 SEC (12.0-14.5)
[2016-09-29] MEDS ORDERED: NEUR600 PO (13:12)
[2016-09-29] MEDS ORDERED: TEARS PURE OPH (13:12)
[2016-09-29] MEDS ORDERED: ASAB PO (13:12)
[2016-09-29] MEDS ORDERED: PREDFORTE OPH (13:22)
[2016-09-29 16:05] LABS: HEMATOCRIT 23.4 % (40.0-51.0); HEMOGLOBIN 7.5 g/dL (13.6-17.8)
[2016-09-29 17:19] LABS: INTERNATIONAL NORMAL RATI 1.7 UNITS (-); PROTIME (NOT ORD) 20.2 SEC (12.0-14.5)
[2016-09-29 17:33] LABS: TROPONIN I 0.42 NG/ML (<0.05)
[2016-09-29 22:05] LABS: HEMATOCRIT 23.6 % (40.0-51.0); HEMOGLOBIN 7.5 g/dL (13.6-17.8)
[2016-09-29 22:14] LABS: INTERNATIONAL NORMAL RATI 1.7 UNITS (-); PROTIME (NOT ORD) 19.7 SEC (12.0-14.5)
[2016-09-29 22:28] LABS: CK-MB 3.4 NG/ML; CPK 145 U/L (0-200); TROPONIN I 0.42 NG/ML (<0.05)
[2016-09-30 01:48] LABS: BASOPHILS 0.1 %; BASOPHILS ABSOLUTE 0.01 10/3/uL (0.0-0.16); EOSINOPHILS 1.6 %; EOSINOPHILS ABSOLUTE 0.11 10/3/uL (0.0-0.53); HEMATOCRIT 23.7 % (40.0-51.0); HEMOGLOBIN 7.5 g/dL (13.6-17.8); IMMATURE GRANULOCYTES ABSOLUTE 0.07 10/3/uL (0.0-0.11); LYMPHOCYTES 7.6 %; LYMPHOCYTES ABSOLUTE 0.52 10/3/uL (0.67-4.30); MEAN CORPUS HGB CONC 31.6 g/dL (32.0-36.0); MEAN CORPUSCULAR HEMOGLOB 29.6 pg (26.0-34.0); MEAN CORPUSCULAR VOLUME 93.7 fL (80-100); MEAN PLATELET VOLUME 9.5 fL (9.2-13.0); MONOCYTES 10.3 %; MONOCYTES ABSOLUTE 0.71 10/3/uL (0.21-1.20); NEUTROPHILS 79.4 %; NEUTROPHILS ABSOLUTE 5.46 10/3/uL (2.02-8.40); RBC DISTRIBUTION WIDTH 20.4 % (12.0-16.0); WHITE BLOOD CELLS 6.9 10/3/uL (4.5-10.5)
[2016-09-30 01:51] LABS: MANUAL DIFF NO %; RED CELL COUNT 2.53 10/6/uL (4.7-6.1)
[2016-09-30 02:02] LABS: INTERNATIONAL NORMAL RATI 1.6 UNITS (-); PROTIME (NOT ORD) 18.8 SEC (12.0-14.5)
[2016-09-30 02:12] LABS: HYPOCHROMIA 1+ (3-10/OIF) (0-2/OIF); MACROCYTES 1+ (5-10/OIF) (0-5/OIF); MICROCYTES 1+ (5-10/OIF) (0-5/OIF); PLATELET ESTIMATE ADQ (ADEQUATE); POLYCHROMASIA 1+ (2-5/OIF) (0-1/OIF)
[2016-09-30 02:14] LABS: PLATELET COUNT 166 10/3/uL (150-400)
[2016-09-30 02:42] LABS: BUN (BLOOD UREA NITROGEN) 33 MG/DL (6-23); CHLORIDE, SERUM 107 MMOL/L (96-112); CO2 (CARBON DIOXIDE) 27 MMOL/L (24-34); FOLATE 16.5 NG/ML (>5.2); GFR AFRICAN AMERICAN 57 ML/MIN (>=60); GFR NON AFRICAN AMERICAN 49 ML/MIN (>=60); GLUCOSE, SERUM 120 MG/DL (60-99); PHOSPHORUS, SERUM 2.5 MG/DL (2.5-4.5); POTASSIUM, SERUM 3.9 MMOL/L (3.5-5.3); SODIUM, SERUM 145 MMOL/L (135-148); ULTRASENSITIVE TSH 0.946 MCIU/ML (0.358-3.740)
[2016-09-30 02:43] LABS: TROPONIN I 0.36 NG/ML (<0.05)
[2016-09-30 10:18] LABS: HEMATOCRIT 24.1 % (40.0-51.0); HEMOGLOBIN 7.5 g/dL (13.6-17.8)
[2016-09-30 10:23] LABS: INTERNATIONAL NORMAL RATI 1.5 UNITS (-); PROTIME (NOT ORD) 18.4 SEC (12.0-14.5)
[2016-09-30 17:23] LABS: HEMATOCRIT 23.1 % (40.0-51.0); HEMOGLOBIN 7.2 g/dL (13.6-17.8)
[2016-09-30 17:30] LABS: INTERNATIONAL NORMAL RATI 1.6 UNITS (-); PROTIME (NOT ORD) 18.6 SEC (12.0-14.5)
[2016-09-30 22:00] LABS: INTERNATIONAL NORMAL RATI 1.5 UNITS (-); PROTIME (NOT ORD) 18.4 SEC (12.0-14.5)
[2016-10-01 07:09] LABS: BASOPHILS 0.3 %; BASOPHILS ABSOLUTE 0.02 10/3/uL (0.0-0.16); EOSINOPHILS 1.8 %; EOSINOPHILS ABSOLUTE 0.12 10/3/uL (0.0-0.53); HEMOGLOBIN 7.9 g/dL (13.6-17.8); IMMATURE GRANULOCYTES 0.6 %; IMMATURE GRANULOCYTES ABSOLUTE 0.04 10/3/uL (0.0-0.11); LYMPHOCYTES 10.2 %; LYMPHOCYTES ABSOLUTE 0.67 10/3/uL (0.67-4.30); MEAN CORPUSCULAR HEMOGLOB 28.6 pg (26.0-34.0); MEAN CORPUSCULAR VOLUME 95.7 fL (80-100); MONOCYTES 11.6 %; MONOCYTES ABSOLUTE 0.76 10/3/uL (0.21-1.20); NEUTROPHILS 75.5 %; NEUTROPHILS ABSOLUTE 4.93 10/3/uL (2.02-8.40); RBC DISTRIBUTION WIDTH 21.5 % (12.0-16.0); RED CELL COUNT 2.76 10/6/uL (4.7-6.1); WHITE BLOOD CELLS 6.5 10/3/uL (4.5-10.5)
[2016-10-01 07:12] LABS: INTERNATIONAL NORMAL RATI 1.5 UNITS (-); PROTIME (NOT ORD) 18.4 SEC (12.0-14.5)
[2016-10-01 07:19] LABS: HEMATOCRIT 26.4 % (40.0-51.0); MANUAL DIFF NO %; MEAN CORPUS HGB CONC 29.9 g/dL (32.0-36.0); PLATELET COUNT 114 10/3/uL (150-400)
[2016-10-01 07:29] LABS: BUN (BLOOD UREA NITROGEN) 19 MG/DL (6-23); CALCIUM, SERUM 8.1 MG/DL (8.5-10.4); CHLORIDE, SERUM 110 MMOL/L (96-112); CO2 (CARBON DIOXIDE) 25 MMOL/L (24-34); CREATININE 1.31 MG/DL (0.70-1.30); GFR AFRICAN AMERICAN 62 ML/MIN (>=60); GFR NON AFRICAN AMERICAN 53 ML/MIN (>=60); GLUCOSE, SERUM 132 MG/DL (60-99); PHOSPHORUS, SERUM 1.9 MG/DL (2.5-4.5); POTASSIUM, SERUM 4.1 MMOL/L (3.5-5.3); SODIUM, SERUM 144 MMOL/L (135-148)
[2016-10-01 11:04] LABS: INTERNATIONAL NORMAL RATI 1.6 UNITS (-); PROTIME (NOT ORD) 18.6 SEC (12.0-14.5)
[2016-10-01 21:20] LABS: HEMATOCRIT 27.6 % (40.0-51.0); HEMOGLOBIN 8.6 g/dL (13.6-17.8)
[2016-10-01 21:28] LABS: INTERNATIONAL NORMAL RATI 1.5 UNITS (-); PROTIME (NOT ORD) 18.2 SEC (12.0-14.5)
[2016-10-02 04:35] LABS: BASOPHILS 0.6 %; BASOPHILS ABSOLUTE 0.04 10/3/uL (0.0-0.16); EOSINOPHILS ABSOLUTE 0.22 10/3/uL (0.0-0.53); HEMOGLOBIN 9.2 g/dL (13.6-17.8); IMMATURE GRANULOCYTES 0.8 %; IMMATURE GRANULOCYTES ABSOLUTE 0.06 10/3/uL (0.0-0.11); LYMPHOCYTES ABSOLUTE 0.58 10/3/uL (0.67-4.30); MEAN CORPUS HGB CONC 29.8 g/dL (32.0-36.0); MEAN CORPUSCULAR HEMOGLOB 28.8 pg (26.0-34.0); MEAN CORPUSCULAR VOLUME 96.6 fL (80-100); MEAN PLATELET VOLUME 10.8 fL (9.2-13.0); MONOCYTES 16.2 %; MONOCYTES ABSOLUTE 1.18 10/3/uL (0.21-1.20); NEUTROPHILS 71.4 %; NEUTROPHILS ABSOLUTE 5.19 10/3/uL (2.02-8.40); PLATELET COUNT 135 10/3/uL (150-400); RBC DISTRIBUTION WIDTH 21.7 % (12.0-16.0); WHITE BLOOD CELLS 7.3 10/3/uL (4.5-10.5)
[2016-10-02 04:36] LABS: HEMATOCRIT 30.9 % (40.0-51.0); MANUAL DIFF NO %
[2016-10-02 04:40] LABS: INTERNATIONAL NORMAL RATI 1.5 UNITS (-)
[2016-10-02 04:44] LABS: CALCIUM, SERUM 8.1 MG/DL (8.5-10.4); CHLORIDE, SERUM 116 MMOL/L (96-112); CO2 (CARBON DIOXIDE) 22 MMOL/L (24-34); CREATININE 1.16 MG/DL (0.70-1.30); GFR AFRICAN AMERICAN 72 ML/MIN (>=60); GFR NON AFRICAN AMERICAN 62 ML/MIN (>=60); GLUCOSE, SERUM 124 MG/DL (60-99); POTASSIUM, SERUM 4.3 MMOL/L (3.5-5.3); SODIUM, SERUM 148 MMOL/L (135-148)
[2016-10-02 04:45] LABS: BUN (BLOOD UREA NITROGEN) 15 MG/DL (6-23)
[2016-10-02 10:15] LABS: INTERNATIONAL NORMAL RATI 1.5 UNITS (-)
[2016-10-02 16:17] LABS: HEMATOCRIT 31.6 % (40.0-51.0); HEMOGLOBIN 9.3 g/dL (13.6-17.8)
[2016-10-03 04:42] LABS: HEMATOCRIT 30.8 % (40.0-51.0); HEMOGLOBIN 9.3 g/dL (13.6-17.8); MEAN CORPUS HGB CONC 30.2 g/dL (32.0-36.0); MEAN CORPUSCULAR HEMOGLOB 29.2 pg (26.0-34.0); MEAN CORPUSCULAR VOLUME 96.9 fL (80-100); MEAN PLATELET VOLUME 9.8 fL (9.2-13.0); PLATELET COUNT 162 10/3/uL (150-400); RBC DISTRIBUTION WIDTH 22.2 % (12.0-16.0); RED CELL COUNT 3.18 10/6/uL (4.7-6.1)
[2016-10-03 04:48] LABS: MANUAL DIFF YES %; WHITE BLOOD CELLS 11.8 10/3/uL (4.5-10.5)
[2016-10-03 05:02] LABS: ALBUMIN 2.9 G/DL (3.5-5.0); ALKALINE PHOSPHATASE 69 U/L (45-117); BUN (BLOOD UREA NITROGEN) 15 MG/DL (6-23); CALCIUM, SERUM 8.6 MG/DL (8.5-10.4); CHLORIDE, SERUM 119 MMOL/L (96-112); CO2 (CARBON DIOXIDE) 23 MMOL/L (24-34); CREATININE 1.21 MG/DL (0.70-1.30); GFR AFRICAN AMERICAN 68 ML/MIN (>=60); GFR NON AFRICAN AMERICAN 59 ML/MIN (>=60); GLUCOSE, SERUM 136 MG/DL (60-99); SGOT(AST) 25 U/L (5-40); SGPT(ALT) 17 U/L (5-65); SODIUM, SERUM 152 MMOL/L (135-148); TOTAL PROTEIN 7.1 G/DL (6.0-8.5)
[2016-10-03 05:04] LABS: DIRECT BILIRUBIN 1.6 MG/DL (0.0-0.4); INDIRECT BILIRUBIN(NOT ORDER) 1.6 MG/DL (0.1-0.9); PHOSPHORUS, SERUM 2.6 MG/DL (2.5-4.5); TOTAL BILIRUBIN 3.2 MG/DL (0-1.2)
[2016-10-03 05:09] LABS: INTERNATIONAL NORMAL RATI 1.5 UNITS (-); PROTIME (NOT ORD) 17.8 SEC (12.0-14.5)
[2016-10-03 06:57] LABS: BAND NEUTROPHILS 4 %; EOSINOPHILS 2 %; EOSINOPHILS ABSOLUTE (CALC) 0.24 10/3/uL (0.0-0.53); LYMPHOCYTES 18 %; LYMPHOCYTES ABSOLUTE (CALC) 2.12 10/3/uL (0.67-4.30); MACROCYTES 1+ (5-10/OIF) (0-5/OIF); MONOCYTES 10 %; MONOCYTES ABSOLUTE (CALC) 1.18 10/3/uL (0.21-1.20); NEUTROPHILS ABSOLUTE (CALC) 8.26 10/3/uL (2.02-8.40); POLYCHROMASIA 1+ (2-5/OIF) (0-1/OIF); SEGMENTED NEUTROPHIL (0) 66 %; TEARDROP SHAPED RBCS OCC (0-2/OIF); TOTAL NUCLEATED CELLS 100
[2016-10-03 06:58] LABS: PLATELET ESTIMATE ADQ (ADEQUATE)
[2016-10-03 07:51] LABS: ASCORBIC ACID (UR NOT ORDER) NEG (NEG); BILIRUBIN, URINE NEGATIVE (NEG); KETONE, URINE TRACE MG/DL (NEG); LEUKOCYTE ESTERASE(NOT OR LARGE (NEG); WBC (NOT ORDERED) (RFLEX) 116 (0-5)
[2016-10-03 07:51] LABS: PROCALCITONIN 0.14 ng/mL (<0.5)
[2016-10-03 09:34] LABS: INTERNATIONAL NORMAL RATI 1.6 UNITS (-); PROTIME (NOT ORD) 18.7 SEC (12.0-14.5)
[2016-10-03 11:52] LABS: ALLENS TEST Pos; CARBOXYHEMOGLOBIN 1.3 % (0-3); DEVICE NC; HCO3 (ACTUAL BICARBONATE) 22.4 MEQ/L (23-27); HEMOBLOGIN CONTENT 9.9 G/DL (14-18); INSTRUMENT SERIAL # 8083; METHEMOGLOBIN 0.1 % (0-3); O2 CONTENT 13.2 VOL% (18-24); PCO2 (CO2 TENSION) 37 MMHG (35-45); PO2 (O2 TENSION) 82 MMHG (79-93); SAMPLE Arterial
[2016-10-03 12:57] LABS: HEMATOCRIT 29.9 % (40.0-51.0); HEMOGLOBIN 8.9 g/dL (13.6-17.8); MEAN CORPUS HGB CONC 29.8 g/dL (32.0-36.0); MEAN CORPUSCULAR HEMOGLOB 28.8 pg (26.0-34.0); MEAN CORPUSCULAR VOLUME 96.8 fL (80-100); MEAN PLATELET VOLUME 10.1 fL (9.2-13.0); PLATELET COUNT 170 10/3/uL (150-400); RED CELL COUNT 3.09 10/6/uL (4.7-6.1); WHITE BLOOD CELLS 13.2 10/3/uL (4.5-10.5)
[2016-10-03 13:02] LABS: MANUAL DIFF YES %
[2016-10-03 13:13] LABS: BUN (BLOOD UREA NITROGEN) 17 MG/DL (6-23); CALCIUM, SERUM 8.1 MG/DL (8.5-10.4); CHLORIDE, SERUM 119 MMOL/L (96-112); CK-MB 0.9 NG/ML; CO2 (CARBON DIOXIDE) 26 MMOL/L (24-34); CPK 57 U/L (0-200); CREATININE 1.36 MG/DL (0.70-1.30); GFR AFRICAN AMERICAN 59 ML/MIN (>=60); GFR NON AFRICAN AMERICAN 51 ML/MIN (>=60); GLUCOSE, SERUM 139 MG/DL (60-99); PHOSPHORUS, SERUM 3.3 MG/DL (2.5-4.5); POTASSIUM, SERUM 3.9 MMOL/L (3.5-5.3); SODIUM, SERUM 152 MMOL/L (135-148); TROPONIN I 0.04 NG/ML (<0.05)
[2016-10-03 13:18] LABS: BAND NEUTROPHILS 1 %; LYMPHOCYTES 5 %; LYMPHOCYTES ABSOLUTE (CALC) 0.66 10/3/uL (0.67-4.30); MONOCYTES 27 %; MONOCYTES ABSOLUTE (CALC) 3.56 10/3/uL (0.21-1.20); NEUTROPHILS ABSOLUTE (CALC) 8.98 10/3/uL (2.02-8.40); SEGMENTED NEUTROPHIL (0) 67 %; TOTAL NUCLEATED CELLS 100
[2016-10-03 13:19] LABS: MACROCYTES 1+ (5-10/OIF) (0-5/OIF); MICROCYTES 1+ (5-10/OIF) (0-5/OIF); PLATELET ESTIMATE ADQ (ADEQUATE)
[2016-10-04 04:51] LABS: HEMATOCRIT 31.3 % (40.0-51.0); HEMOGLOBIN 9.3 g/dL (13.6-17.8); MEAN CORPUS HGB CONC 29.7 g/dL (32.0-36.0); MEAN CORPUSCULAR HEMOGLOB 28.7 pg (26.0-34.0); MEAN CORPUSCULAR VOLUME 96.6 fL (80-100); MEAN PLATELET VOLUME 11.1 fL (9.2-13.0); PLATELET COUNT 196 10/3/uL (150-400); RED CELL COUNT 3.24 10/6/uL (4.7-6.1); WHITE BLOOD CELLS 12.7 10/3/uL (4.5-10.5)
[2016-10-04 04:53] LABS: MANUAL DIFF YES %
[2016-10-04 05:18] LABS: ALBUMIN 2.7 G/DL (3.5-5.0); ALKALINE PHOSPHATASE 61 U/L (45-117); BUN (BLOOD UREA NITROGEN) 19 MG/DL (6-23); CALCIUM, SERUM 8.8 MG/DL (8.5-10.4); CHLORIDE, SERUM 121 MMOL/L (96-112); CO2 (CARBON DIOXIDE) 24 MMOL/L (24-34); CREATININE 1.36 MG/DL (0.70-1.30); GFR AFRICAN AMERICAN 59 ML/MIN (>=60); GFR NON AFRICAN AMERICAN 51 ML/MIN (>=60); GLUCOSE, SERUM 126 MG/DL (60-99); POTASSIUM, SERUM 3.6 MMOL/L (3.5-5.3); SGOT(AST) 24 U/L (5-40); SGPT(ALT) 14 U/L (5-65); SODIUM, SERUM 155 MMOL/L (135-148)
[2016-10-04 05:22] LABS: DIRECT BILIRUBIN 2.9 MG/DL (0.0-0.4); INDIRECT BILIRUBIN(NOT ORDER) 2.2 MG/DL (0.1-0.9); PHOSPHORUS, SERUM 1.8 MG/DL (2.5-4.5); TOTAL BILIRUBIN 5.1 MG/DL (0-1.2)
[2016-10-04 05:31] LABS: BAND NEUTROPHILS 1 %; LYMPHOCYTES 6 %; LYMPHOCYTES ABSOLUTE (CALC) 0.76 10/3/uL (0.67-4.30); MONOCYTES 8 %; MONOCYTES ABSOLUTE (CALC) 1.02 10/3/uL (0.21-1.20); NEUTROPHILS ABSOLUTE (CALC) 10.92 10/3/uL (2.02-8.40); SEGMENTED NEUTROPHIL (0) 85 %; TOTAL NUCLEATED CELLS 100
[2016-10-04 05:32] LABS: ANISOCYTOSIS 1+ (5-10/OIF) (0-5/OIF); HYPOCHROMIA 1+ (3-10/OIF) (0-2/OIF); PLATELET ESTIMATE ADQ (ADEQUATE); POLYCHROMASIA 1+ (2-5/OIF) (0-1/OIF)
[2016-10-04 16:54] LABS: HEMATOCRIT 31.8 % (40.0-51.0); HEMOGLOBIN 9.7 g/dL (13.6-17.8)
[2016-10-05 06:41] LABS: BASOPHILS 0.3 %; BASOPHILS ABSOLUTE 0.04 10/3/uL (0.0-0.16); EOSINOPHILS 0.1 %; EOSINOPHILS ABSOLUTE 0.01 10/3/uL (0.0-0.53); HEMATOCRIT 32.5 % (40.0-51.0); HEMOGLOBIN 9.7 g/dL (13.6-17.8); IMMATURE GRANULOCYTES 0.7 %; IMMATURE GRANULOCYTES ABSOLUTE 0.08 10/3/uL (0.0-0.11); LYMPHOCYTES 6.8 %; LYMPHOCYTES ABSOLUTE 0.78 10/3/uL (0.67-4.30); MANUAL DIFF NO %; MEAN CORPUS HGB CONC 29.8 g/dL (32.0-36.0); MEAN CORPUSCULAR HEMOGLOB 29.5 pg (26.0-34.0); MEAN CORPUSCULAR VOLUME 98.8 fL (80-100); MEAN PLATELET VOLUME 11.4 fL (9.2-13.0); MONOCYTES 9.1 %; MONOCYTES ABSOLUTE 1.05 10/3/uL (0.21-1.20); NEUTROPHILS ABSOLUTE 9.52 10/3/uL (2.02-8.40); PLATELET COUNT 235 10/3/uL (150-400); RBC DISTRIBUTION WIDTH 21.8 % (12.0-16.0); RED CELL COUNT 3.29 10/6/uL (4.7-6.1); WHITE BLOOD CELLS 11.5 10/3/uL (4.5-10.5)
[2016-10-05 06:46] LABS: INTERNATIONAL NORMAL RATI 1.7 UNITS (-); PROTIME (NOT ORD) 19.9 SEC (12.0-14.5)
[2016-10-05 06:55] LABS: BUN (BLOOD UREA NITROGEN) 21 MG/DL (6-23); CALCIUM, SERUM 8.7 MG/DL (8.5-10.4); CHLORIDE, SERUM 126 MMOL/L (96-112); CO2 (CARBON DIOXIDE) 26 MMOL/L (24-34); CREATININE 1.29 MG/DL (0.70-1.30); GFR AFRICAN AMERICAN 63 ML/MIN (>=60); GFR NON AFRICAN AMERICAN 54 ML/MIN (>=60); GLUCOSE, SERUM 122 MG/DL (60-99); POTASSIUM, SERUM 3.7 MMOL/L (3.5-5.3); SODIUM, SERUM 160 MMOL/L (135-148)
[2016-10-05 08:27] LABS: PROCALCITONIN 0.55 ng/mL (<0.5)
[2016-10-05 13:53] LABS: A/G RATIO 0.5 (0.7-1.9); ALBUMIN 2.4 G/DL (3.5-5.0); ALKALINE PHOSPHATASE 56 U/L (45-117); GLOBULIN 4.4 G/DL (2.5-4.1); PHOSPHORUS, SERUM 3.2 MG/DL (2.5-4.5); PREALBUMIN 3.3 MG/DL (17.0-43.0); SGOT(AST) 32 U/L (5-40); SGPT(ALT) 17 U/L (5-65); TOTAL BILIRUBIN 4.4 MG/DL (0-1.2); TOTAL PROTEIN 6.8 G/DL (6.0-8.5)
[2016-10-05 13:55] LABS: BE (BASE EXCESS) -0.3 MEQ/L (0 +/- 2.5); CARBOXYHEMOGLOBIN 0.1 % (0-3); HCO3 (ACTUAL BICARBONATE) 25.1 MEQ/L (23-27); HEMOBLOGIN CONTENT 10.1 G/DL (14-18); INSTRUMENT SERIAL # 8083; METHEMOGLOBIN 0.3 % (0-3); MODE CMV; O2 CONTENT 15.1 VOL% (18-24); OPERATOR ID 19104; PCO2 (CO2 TENSION) 45 MMHG (35-45); PO2 (O2 TENSION) 375 MMHG (79-93); SAMPLE Arterial; TIDAL VOLUME 500 ML; pH 7.37 (7.37-7.43)
[2016-10-05 16:55] LABS: HEMOGLOBIN 9.7 g/dL (13.6-17.8)
[2016-10-06 04:24] LABS: INTERNATIONAL NORMAL RATI 1.7 UNITS (-); PROTIME (NOT ORD) 19.6 SEC (12.0-14.5)
[2016-10-06 04:33] LABS: BUN (BLOOD UREA NITROGEN) 27 MG/DL (6-23); CHLORIDE, SERUM 124 MMOL/L (96-112); CO2 (CARBON DIOXIDE) 27 MMOL/L (24-34); CREATININE 1.58 MG/DL (0.70-1.30); GFR AFRICAN AMERICAN 49 ML/MIN (>=60); GFR NON AFRICAN AMERICAN 42 ML/MIN (>=60); GLUCOSE, SERUM 135 MG/DL (60-99); POTASSIUM, SERUM 3.7 MMOL/L (3.5-5.3); SODIUM, SERUM 158 MMOL/L (135-148)
[2016-10-06 04:36] LABS: BASOPHILS 0.3 %; BASOPHILS ABSOLUTE 0.04 10/3/uL (0.0-0.16); EOSINOPHILS 0.7 %; EOSINOPHILS ABSOLUTE 0.09 10/3/uL (0.0-0.53); HEMATOCRIT 33.8 % (40.0-51.0); HEMOGLOBIN 9.6 g/dL (13.6-17.8); IMMATURE GRANULOCYTES 0.4 %; IMMATURE GRANULOCYTES ABSOLUTE 0.05 10/3/uL (0.0-0.11); LYMPHOCYTES 5.1 %; LYMPHOCYTES ABSOLUTE 0.65 10/3/uL (0.67-4.30); MEAN CORPUS HGB CONC 28.4 g/dL (32.0-36.0); MEAN CORPUSCULAR HEMOGLOB 28.2 pg (26.0-34.0); MEAN CORPUSCULAR VOLUME 99.1 fL (80-100); MEAN PLATELET VOLUME 11.5 fL (9.2-13.0); MONOCYTES 8.9 %; MONOCYTES ABSOLUTE 1.14 10/3/uL (0.21-1.20); NEUTROPHILS 84.6 %; NEUTROPHILS ABSOLUTE 10.86 10/3/uL (2.02-8.40); PLATELET COUNT 242 10/3/uL (150-400); RBC DISTRIBUTION WIDTH 21.8 % (12.0-16.0); RED CELL COUNT 3.41 10/6/uL (4.7-6.1); WHITE BLOOD CELLS 12.8 10/3/uL (4.5-10.5)
[2016-10-06 04:53] LABS: MANUAL DIFF NO %
[2016-10-07 05:03] LABS: INTERNATIONAL NORMAL RATI 1.8 UNITS (-); PROTIME (NOT ORD) 20.4 SEC (12.0-14.5)
[2016-10-07 05:12] LABS: BUN (BLOOD UREA NITROGEN) 27 MG/DL (6-23); CALCIUM, SERUM 8.7 MG/DL (8.5-10.4); CHLORIDE, SERUM 125 MMOL/L (96-112); CO2 (CARBON DIOXIDE) 26 MMOL/L (24-34); CREATININE 1.41 MG/DL (0.70-1.30); GFR AFRICAN AMERICAN 56 ML/MIN (>=60); GFR NON AFRICAN AMERICAN 49 ML/MIN (>=60)
[2016-10-07 05:15] LABS: GLUCOSE, SERUM 167 MG/DL (60-99); SODIUM, SERUM 160 MMOL/L (135-148)
[2016-10-07 05:19] LABS: BASOPHILS 0.6 %; BASOPHILS ABSOLUTE 0.06 10/3/uL (0.0-0.16); EOSINOPHILS 2.5 %; EOSINOPHILS ABSOLUTE 0.24 10/3/uL (0.0-0.53); HEMATOCRIT 31.2 % (40.0-51.0); HEMOGLOBIN 9.1 g/dL (13.6-17.8); IMMATURE GRANULOCYTES ABSOLUTE 0.09 10/3/uL (0.0-0.11); LYMPHOCYTES 8.8 %; LYMPHOCYTES ABSOLUTE 0.83 10/3/uL (0.67-4.30); MEAN CORPUS HGB CONC 29.2 g/dL (32.0-36.0); MEAN CORPUSCULAR VOLUME 99.4 fL (80-100); MEAN PLATELET VOLUME 11.8 fL (9.2-13.0); MONOCYTES ABSOLUTE 0.76 10/3/uL (0.21-1.20); NEUTROPHILS 79.1 %; NEUTROPHILS ABSOLUTE 7.49 10/3/uL (2.02-8.40); PLATELET COUNT 241 10/3/uL (150-400); RBC DISTRIBUTION WIDTH 21.5 % (12.0-16.0); RED CELL COUNT 3.14 10/6/uL (4.7-6.1); WHITE BLOOD CELLS 9.5 10/3/uL (4.5-10.5)
[2016-10-07 05:33] LABS: MANUAL DIFF NO %
[2016-10-07 06:27] LABS: PROCALCITONIN 0.52 ng/mL (<0.5)
[2016-10-07 17:54] LABS: ASCORBIC ACID (UR NOT ORDER) NEG (NEG); BILIRUBIN, URINE NEGATIVE (NEG); KETONE, URINE NEGATIVE (NEG); LEUKOCYTE ESTERASE(NOT OR MOD (NEG); WBC (NOT ORDERED) (RFLEX) 12 (0-5)
[2016-10-08 04:13] LABS: INTERNATIONAL NORMAL RATI 1.7 UNITS (-); PROTIME (NOT ORD) 20.1 SEC (12.0-14.5)
[2016-10-08 04:18] LABS: BASOPHILS 0.3 %; BASOPHILS ABSOLUTE 0.05 10/3/uL (0.0-0.16); EOSINOPHILS 0.5 %; EOSINOPHILS ABSOLUTE 0.08 10/3/uL (0.0-0.53); HEMATOCRIT 31.2 % (40.0-51.0); HEMOGLOBIN 9.3 g/dL (13.6-17.8); IMMATURE GRANULOCYTES 0.6 %; LYMPHOCYTES 6.1 %; LYMPHOCYTES ABSOLUTE 1.05 10/3/uL (0.67-4.30); MEAN CORPUS HGB CONC 29.8 g/dL (32.0-36.0); MEAN CORPUSCULAR HEMOGLOB 29.2 pg (26.0-34.0); MEAN CORPUSCULAR VOLUME 98.1 fL (80-100); MEAN PLATELET VOLUME 12.2 fL (9.2-13.0); MONOCYTES 5.5 %; MONOCYTES ABSOLUTE 0.94 10/3/uL (0.21-1.20); NEUTROPHILS ABSOLUTE 15.01 10/3/uL (2.02-8.40); PLATELET COUNT 253 10/3/uL (150-400); RBC DISTRIBUTION WIDTH 21.5 % (12.0-16.0); RED CELL COUNT 3.18 10/6/uL (4.7-6.1)
[2016-10-08 04:19] LABS: MANUAL DIFF NO %; WHITE BLOOD CELLS 17.2 10/3/uL (4.5-10.5)
[2016-10-08 04:34] LABS: A/G RATIO 0.4 (0.7-1.9); ALBUMIN 1.7 G/DL (3.5-5.0); ALKALINE PHOSPHATASE 172 U/L (45-117); BUN (BLOOD UREA NITROGEN) 24 MG/DL (6-23); CALCIUM, SERUM 8.6 MG/DL (8.5-10.4); CHLORIDE, SERUM 124 MMOL/L (96-112); CO2 (CARBON DIOXIDE) 28 MMOL/L (24-34); CREATININE 1.35 MG/DL (0.70-1.30); GFR AFRICAN AMERICAN 60 ML/MIN (>=60); GFR NON AFRICAN AMERICAN 51 ML/MIN (>=60); GLOBULIN 4.7 G/DL (2.5-4.1); GLUCOSE, SERUM 213 MG/DL (60-99); PHOSPHORUS, SERUM 1.6 MG/DL (2.5-4.5); POTASSIUM, SERUM 3.6 MMOL/L (3.5-5.3); SGOT(AST) 85 U/L (5-40); SGPT(ALT) 29 U/L (5-65); SODIUM, SERUM 160 MMOL/L (135-148); TOTAL BILIRUBIN 3.3 MG/DL (0-1.2); TOTAL PROTEIN 6.4 G/DL (6.0-8.5)
[2016-10-08 04:43] LABS: ALLENS TEST Pos; BE (BASE EXCESS) 2.7 MEQ/L (0 +/- 2.5); CARBOXYHEMOGLOBIN 1.4 % (0-3); HEMOBLOGIN CONTENT 7.3 G/DL (14-18); INSTRUMENT SERIAL # 11843; METHEMOGLOBIN 0.9 % (0-3); MODE CMV; O2 CONTENT 10.1 VOL% (18-24); OPERATOR ID 32193; PCO2 (CO2 TENSION) 34 MMHG (35-45); PO2 (O2 TENSION) 116 MMHG (79-93); SAMPLE Arterial; TIDAL VOLUME 500 ML
[2016-10-08 05:48] LABS: ANISOCYTOSIS 1+ (5-10/OIF) (0-5/OIF); HYPOCHROMIA 1+ (3-10/OIF) (0-2/OIF); PLATELET ESTIMATE ADQ (ADEQUATE)
[2016-10-08 18:56] LABS: BUN (BLOOD UREA NITROGEN) 21 MG/DL (6-23); CALCIUM, SERUM 8.9 MG/DL (8.5-10.4); CHLORIDE, SERUM 117 MMOL/L (96-112); CO2 (CARBON DIOXIDE) 27 MMOL/L (24-34); CREATININE 1.16 MG/DL (0.70-1.30); GFR AFRICAN AMERICAN 72 ML/MIN (>=60); GFR NON AFRICAN AMERICAN 62 ML/MIN (>=60); GLUCOSE, SERUM 230 MG/DL (60-99); PHOSPHORUS, SERUM 1.2 MG/DL (2.5-4.5)
[2016-10-08 18:57] LABS: SODIUM, SERUM 152 MMOL/L (135-148)
[2016-10-08 18:58] LABS: POTASSIUM, SERUM 3.7 MMOL/L (3.5-5.3)
[2016-10-09 04:15] LABS: INTERNATIONAL NORMAL RATI 1.7 UNITS (-)
[2016-10-09 04:20] LABS: BASOPHILS 0.3 %; BASOPHILS ABSOLUTE 0.06 10/3/uL (0.0-0.16); EOSINOPHILS 0.1 %; EOSINOPHILS ABSOLUTE 0.01 10/3/uL (0.0-0.53); HEMATOCRIT 32.8 % (40.0-51.0); HEMOGLOBIN 9.9 g/dL (13.6-17.8); IMMATURE GRANULOCYTES 0.8 %; IMMATURE GRANULOCYTES ABSOLUTE 0.16 10/3/uL (0.0-0.11); LYMPHOCYTES 5.8 %; LYMPHOCYTES ABSOLUTE 1.13 10/3/uL (0.67-4.30); MEAN CORPUS HGB CONC 30.2 g/dL (32.0-36.0); MEAN CORPUSCULAR HEMOGLOB 28.9 pg (26.0-34.0); MEAN CORPUSCULAR VOLUME 95.6 fL (80-100); MEAN PLATELET VOLUME 12.5 fL (9.2-13.0); MONOCYTES 5.3 %; MONOCYTES ABSOLUTE 1.04 10/3/uL (0.21-1.20); NEUTROPHILS 87.7 %; NEUTROPHILS ABSOLUTE 17.09 10/3/uL (2.02-8.40); PLATELET COUNT 240 10/3/uL (150-400); RBC DISTRIBUTION WIDTH 21.4 % (12.0-16.0); RED CELL COUNT 3.43 10/6/uL (4.7-6.1); WHITE BLOOD CELLS 19.5 10/3/uL (4.5-10.5)
[2016-10-09 04:21] LABS: MANUAL DIFF NO %
[2016-10-09 04:23] LABS: ALLENS TEST Pos; CARBOXYHEMOGLOBIN 0.2 % (0-3); HCO3 (ACTUAL BICARBONATE) 27.8 MEQ/L (23-27); INSTRUMENT SERIAL # 35151; METHEMOGLOBIN 0.4 % (0-3); MODE CMV; O2 CONTENT 15.4 VOL% (18-24); OPERATOR ID 31061; PCO2 (CO2 TENSION) 39 MMHG (35-45); PO2 (O2 TENSION) 122 MMHG (79-93); SAMPLE Arterial; TIDAL VOLUME 500 ML; pH 7.48 (7.37-7.43)
[2016-10-09 04:35] LABS: A/G RATIO 0.3 (0.7-1.9); ALBUMIN 1.6 G/DL (3.5-5.0); ALKALINE PHOSPHATASE 166 U/L (45-117); BUN (BLOOD UREA NITROGEN) 22 MG/DL (6-23); CALCIUM, SERUM 8.9 MG/DL (8.5-10.4); CHLORIDE, SERUM 117 MMOL/L (96-112); CO2 (CARBON DIOXIDE) 27 MMOL/L (24-34); CREATININE 1.15 MG/DL (0.70-1.30); GFR AFRICAN AMERICAN 72 ML/MIN (>=60); GFR NON AFRICAN AMERICAN 62 ML/MIN (>=60); GLOBULIN 5.2 G/DL (2.5-4.1); GLUCOSE, SERUM 212 MG/DL (60-99); PHOSPHORUS, SERUM 1.3 MG/DL (2.5-4.5); SGPT(ALT) 27 U/L (5-65); SODIUM, SERUM 153 MMOL/L (135-148); TOTAL PROTEIN 6.8 G/DL (6.0-8.5)
[2016-10-09 04:40] LABS: POTASSIUM, SERUM 3.4 MMOL/L (3.5-5.3); SGOT(AST) 73 U/L (5-40)
[2016-10-09 05:04] LABS: PROCALCITONIN 1.21 ng/mL (<0.5)
[2016-10-09 11:12] LABS: FREE T4 1.48 NG/DL (0.76-1.46)
[2016-10-10 05:20] LABS: INTERNATIONAL NORMAL RATI 1.8 UNITS (-); PROTIME (NOT ORD) 21.1 SEC (12.0-14.5)
[2016-10-10 05:43] LABS: A/G RATIO 0.3 (0.7-1.9); ALBUMIN 1.4 G/DL (3.5-5.0); CALCIUM, SERUM 8.5 MG/DL (8.5-10.4); CHLORIDE, SERUM 116 MMOL/L (96-112); CO2 (CARBON DIOXIDE) 28 MMOL/L (24-34); CREATININE 1.08 MG/DL (0.70-1.30); FREE T4 1.47 NG/DL (0.76-1.46); GFR AFRICAN AMERICAN 78 ML/MIN (>=60); GFR NON AFRICAN AMERICAN 67 ML/MIN (>=60); GLOBULIN 4.9 G/DL (2.5-4.1); GLUCOSE, SERUM 170 MG/DL (60-99); POTASSIUM, SERUM 3.4 MMOL/L (3.5-5.3); SGOT(AST) 98 U/L (5-40); SGPT(ALT) 36 U/L (5-65); SODIUM, SERUM 154 MMOL/L (135-148); TOTAL PROTEIN 6.3 G/DL (6.0-8.5)
[2016-10-10 05:51] LABS: ALKALINE PHOSPHATASE 216 U/L (45-117); BUN (BLOOD UREA NITROGEN) 26 MG/DL (6-23); PHOSPHORUS, SERUM 1.7 MG/DL (2.5-4.5)
[2016-10-10 05:53] LABS: BASOPHILS 0.3 %; BASOPHILS ABSOLUTE 0.03 10/3/uL (0.0-0.16); EOSINOPHILS 2.8 %; EOSINOPHILS ABSOLUTE 0.32 10/3/uL (0.0-0.53); HEMATOCRIT 29.9 % (40.0-51.0); HEMOGLOBIN 8.6 g/dL (13.6-17.8); IMMATURE GRANULOCYTES 1.1 %; IMMATURE GRANULOCYTES ABSOLUTE 0.13 10/3/uL (0.0-0.11); LYMPHOCYTES 7.8 %; LYMPHOCYTES ABSOLUTE 0.91 10/3/uL (0.67-4.30); MEAN CORPUS HGB CONC 28.8 g/dL (32.0-36.0); MEAN CORPUSCULAR HEMOGLOB 27.6 pg (26.0-34.0); MEAN CORPUSCULAR VOLUME 95.8 fL (80-100); MONOCYTES ABSOLUTE 0.58 10/3/uL (0.21-1.20); NEUTROPHILS ABSOLUTE 9.66 10/3/uL (2.02-8.40); PLATELET COUNT 240 10/3/uL (150-400); RBC DISTRIBUTION WIDTH 21.3 % (12.0-16.0); RED CELL COUNT 3.12 10/6/uL (4.7-6.1)
[2016-10-10 05:54] LABS: MANUAL DIFF NO %; WHITE BLOOD CELLS 11.6 10/3/uL (4.5-10.5)
[2016-10-11 05:28] LABS: BASOPHILS 0.6 %; BASOPHILS ABSOLUTE 0.06 10/3/uL (0.0-0.16); EOSINOPHILS 2.5 %; EOSINOPHILS ABSOLUTE 0.23 10/3/uL (0.0-0.53); HEMATOCRIT 27.1 % (40.0-51.0); IMMATURE GRANULOCYTES 1.5 %; IMMATURE GRANULOCYTES ABSOLUTE 0.14 10/3/uL (0.0-0.11); LYMPHOCYTES 10.8 %; MEAN CORPUS HGB CONC 29.5 g/dL (32.0-36.0); MEAN CORPUSCULAR HEMOGLOB 27.8 pg (26.0-34.0); MEAN CORPUSCULAR VOLUME 94.1 fL (80-100); MEAN PLATELET VOLUME 12.5 fL (9.2-13.0); MONOCYTES 6.4 %; MONOCYTES ABSOLUTE 0.59 10/3/uL (0.21-1.20); NEUTROPHILS 78.2 %; NEUTROPHILS ABSOLUTE 7.24 10/3/uL (2.02-8.40); PLATELET COUNT 232 10/3/uL (150-400); RED CELL COUNT 2.88 10/6/uL (4.7-6.1); WHITE BLOOD CELLS 9.3 10/3/uL (4.5-10.5)
[2016-10-11 05:29] LABS: MANUAL DIFF NO %
[2016-10-11 05:35] LABS: BUN (BLOOD UREA NITROGEN) 24 MG/DL (6-23); CALCIUM, SERUM 8.2 MG/DL (8.5-10.4); CHLORIDE, SERUM 114 MMOL/L (96-112); CO2 (CARBON DIOXIDE) 24 MMOL/L (24-34); CREATININE 1.09 MG/DL (0.70-1.30); GFR AFRICAN AMERICAN 77 ML/MIN (>=60); GFR NON AFRICAN AMERICAN 67 ML/MIN (>=60); GLUCOSE, SERUM 190 MG/DL (60-99); POTASSIUM, SERUM 3.6 MMOL/L (3.5-5.3); SODIUM, SERUM 148 MMOL/L (135-148)
[2016-10-11 05:36] LABS: INTERNATIONAL NORMAL RATI 1.9 UNITS (-); PROTIME (NOT ORD) 21.7 SEC (12.0-14.5)
[2016-10-12 05:51] LABS: BASOPHILS 0.8 %; BASOPHILS ABSOLUTE 0.09 10/3/uL (0.0-0.16); EOSINOPHILS 1.9 %; EOSINOPHILS ABSOLUTE 0.22 10/3/uL (0.0-0.53); HEMATOCRIT 26.4 % (40.0-51.0); HEMOGLOBIN 8.1 g/dL (13.6-17.8); IMMATURE GRANULOCYTES ABSOLUTE 0.35 10/3/uL (0.0-0.11); LYMPHOCYTES 8.4 %; LYMPHOCYTES ABSOLUTE 0.98 10/3/uL (0.67-4.30); MEAN CORPUS HGB CONC 30.7 g/dL (32.0-36.0); MEAN CORPUSCULAR HEMOGLOB 28.8 pg (26.0-34.0); MEAN PLATELET VOLUME 12.1 fL (9.2-13.0); MONOCYTES 6.9 %; MONOCYTES ABSOLUTE 0.81 10/3/uL (0.21-1.20); NEUTROPHILS ABSOLUTE 9.27 10/3/uL (2.02-8.40); PLATELET COUNT 246 10/3/uL (150-400); RBC DISTRIBUTION WIDTH 20.8 % (12.0-16.0); RED CELL COUNT 2.81 10/6/uL (4.7-6.1); WHITE BLOOD CELLS 11.7 10/3/uL (4.5-10.5)
[2016-10-12 05:52] LABS: MANUAL DIFF NO %; PROTIME (NOT ORD) 22.9 SEC (12.0-14.5)
[2016-10-12 06:04] LABS: A/G RATIO 0.3 (0.7-1.9); ALBUMIN 1.4 G/DL (3.5-5.0); CALCIUM, SERUM 7.9 MG/DL (8.5-10.4); CHLORIDE, SERUM 113 MMOL/L (96-112); CHOL/HDL RATIO(NOT ORDER) 6.3 (0-5); CHOLESTEROL 69 MG/DL (< 200); CO2 (CARBON DIOXIDE) 24 MMOL/L (24-34); CREATININE 0.96 MG/DL (0.70-1.30); GFR AFRICAN AMERICAN 90 ML/MIN (>=60); GFR NON AFRICAN AMERICAN 78 ML/MIN (>=60); GLOBULIN 4.6 G/DL (2.5-4.1); HDL CHOLESTEROL 11 MG/DL (> 39); LDL CHOLESTEROL 32 MG/DL (< 130); NON-HDL CHOLESTEROL 58 MG/DL (< 160); POTASSIUM, SERUM 3.6 MMOL/L (3.5-5.3); PREALBUMIN 4.4 MG/DL (17.0-43.0); SGOT(AST) 77 U/L (5-40); SGPT(ALT) 50 U/L (5-65); SODIUM, SERUM 146 MMOL/L (135-148); TOTAL BILIRUBIN 2.1 MG/DL (0-1.2); TRIGLYCERIDE 134 MG/DL (< 150)
[2016-10-12 06:06] LABS: ALKALINE PHOSPHATASE 241 U/L (45-117); BUN (BLOOD UREA NITROGEN) 19 MG/DL (6-23); GLUCOSE, SERUM 131 MG/DL (60-99); PHOSPHORUS, SERUM 2.6 MG/DL (2.5-4.5)
[2016-10-12 14:10] LABS: FOLATE 17.6 NG/ML (>5.2)
[2016-10-12 23:32] LABS: BD FL LYMPH (NOT ORD) 1 %; BD FL SOURCE (NOT ORD) KNEE; BF BASO (NOT OF) 0 %; BF LARGE MONONUCLEAR 11 %; BODY FLUID EOS (NOT ORD) 0 %; BODY FLUID SEG (NOT ORD) 88 %
[2016-10-12 23:33] LABS: BF TOTAL CELL CT (NOT ORD 7714 /MM3; BODY FLUID RBC (NOT ORD) 11000 /MM3
[2016-10-13 05:26] LABS: INTERNATIONAL NORMAL RATI 1.9 UNITS (-)
[2016-10-13 05:27] LABS: HEMATOCRIT 26.9 % (40.0-51.0); HEMOGLOBIN 8.4 g/dL (13.6-17.8); MEAN CORPUS HGB CONC 31.2 g/dL (32.0-36.0); MEAN CORPUSCULAR HEMOGLOB 28.9 pg (26.0-34.0); MEAN CORPUSCULAR VOLUME 92.4 fL (80-100); MEAN PLATELET VOLUME 12.1 fL (9.2-13.0); RBC DISTRIBUTION WIDTH 20.8 % (12.0-16.0); RED CELL COUNT 2.91 10/6/uL (4.7-6.1)
[2016-10-13 05:29] LABS: ALBUMIN 1.4 G/DL (3.5-5.0); BUN (BLOOD UREA NITROGEN) 18 MG/DL (6-23); CALCIUM, SERUM 8.1 MG/DL (8.5-10.4); CHLORIDE, SERUM 109 MMOL/L (96-112); CO2 (CARBON DIOXIDE) 23 MMOL/L (24-34); CREATININE 0.97 MG/DL (0.70-1.30); GFR AFRICAN AMERICAN 89 ML/MIN (>=60); GFR NON AFRICAN AMERICAN 77 ML/MIN (>=60); GLUCOSE, SERUM 125 MG/DL (60-99); MANUAL DIFF YES %; PHOSPHORUS, SERUM 2.6 MG/DL (2.5-4.5); PLATELET COUNT 345 10/3/uL (150-400); POTASSIUM, SERUM 3.6 MMOL/L (3.5-5.3); SODIUM, SERUM 145 MMOL/L (135-148)
[2016-10-13 05:53] LABS: BAND NEUTROPHILS 1 %; BASOPHILS 2 %; EOSINOPHILS 2 %; LYMPHOCYTES 6 %; MONOCYTES 5 %; MONOCYTES ABSOLUTE (CALC) 0.75 10/3/uL (0.21-1.20); NEUTROPHILS ABSOLUTE (CALC) 12.75 10/3/uL (2.02-8.40); SEGMENTED NEUTROPHIL (0) 84 %; TOTAL NUCLEATED CELLS 100
[2016-10-13 05:54] LABS: PLATELET ESTIMATE ADQ (ADEQUATE); POLYCHROMASIA 1+ (2-5/OIF) (0-1/OIF)
[2016-10-13 05:55] LABS: ANISOCYTOSIS 1+ (5-10/OIF) (0-5/OIF)
[2016-10-13 11:18] LABS: ALLENS TEST Pos; BE (BASE EXCESS) -0.3 MEQ/L (0 +/- 2.5); CARBOXYHEMOGLOBIN 0.7 % (0-3); DEVICE NC; HCO3 (ACTUAL BICARBONATE) 21.6 MEQ/L (23-27); HEMOBLOGIN CONTENT 9.5 G/DL (14-18); INSTRUMENT SERIAL # 8083; METHEMOGLOBIN 0.2 % (0-3); O2 CONTENT 12.6 VOL% (18-24); OPERATOR ID 13715; PCO2 (CO2 TENSION) 26 MMHG (35-45); PO2 (O2 TENSION) 69 MMHG (79-93); SAMPLE Arterial; pH 7.53 (7.37-7.43)
[2016-10-13 15:50] LABS: ALLENS TEST Pos; BE (BASE EXCESS) -0.7 MEQ/L (0 +/- 2.5); CARBOXYHEMOGLOBIN 0.4 % (0-3); DEVICE NC; HEMOBLOGIN CONTENT 10.1 G/DL (14-18); INSTRUMENT SERIAL # 8083; METHEMOGLOBIN 0.2 % (0-3); O2 CONTENT 13.3 VOL% (18-24); OPERATOR ID 13715; PCO2 (CO2 TENSION) 25 MMHG (35-45); PO2 (O2 TENSION) 64 MMHG (79-93); SAMPLE Arterial; pH 7.54 (7.37-7.43)
[2016-10-13 16:46] LABS: HEMATOCRIT 28.2 % (40.0-51.0); HEMOGLOBIN 8.8 g/dL (13.6-17.8); MEAN CORPUS HGB CONC 31.2 g/dL (32.0-36.0); MEAN CORPUSCULAR VOLUME 93.1 fL (80-100); PLATELET COUNT 429 10/3/uL (150-400); RBC DISTRIBUTION WIDTH 21.1 % (12.0-16.0); RED CELL COUNT 3.03 10/6/uL (4.7-6.1); WHITE BLOOD CELLS 18.7 10/3/uL (4.5-10.5)
[2016-10-13 16:48] LABS: MANUAL DIFF YES %
[2016-10-13 16:51] LABS: BUN (BLOOD UREA NITROGEN) 18 MG/DL (6-23); CALCIUM, SERUM 8.3 MG/DL (8.5-10.4); CHLORIDE, SERUM 111 MMOL/L (96-112); CO2 (CARBON DIOXIDE) 22 MMOL/L (24-34); CREATININE 1.04 MG/DL (0.70-1.30); GFR AFRICAN AMERICAN 82 ML/MIN (>=60); GFR NON AFRICAN AMERICAN 70 ML/MIN (>=60); GLUCOSE, SERUM 125 MG/DL (60-99); PHOSPHORUS, SERUM 2.8 MG/DL (2.5-4.5); POTASSIUM, SERUM 3.8 MMOL/L (3.5-5.3); SODIUM, SERUM 145 MMOL/L (135-148)
[2016-10-13 17:12] LABS: BAND NEUTROPHILS 2 %; LYMPHOCYTES 5 %; LYMPHOCYTES ABSOLUTE (CALC) 0.94 10/3/uL (0.67-4.30); MONOCYTES 2 %; MONOCYTES ABSOLUTE (CALC) 0.37 10/3/uL (0.21-1.20); NEUTROPHILS ABSOLUTE (CALC) 17.39 10/3/uL (2.02-8.40); PLATELET ESTIMATE SLT INC (ADEQUATE); SEGMENTED NEUTROPHIL (0) 91 %; TOTAL NUCLEATED CELLS 100
[2016-10-13 17:13] LABS: ANISOCYTOSIS 1+ (5-10/OIF) (0-5/OIF)
[2016-10-13 17:42] LABS: PROCALCITONIN 0.48 ng/mL (<0.5)
[2016-10-14 04:04] LABS: BE (BASE EXCESS) -2.3 MEQ/L (0 +/- 2.5); CARBOXYHEMOGLOBIN 0.3 % (0-3); HCO3 (ACTUAL BICARBONATE) 20.9 MEQ/L (23-27); HEMOBLOGIN CONTENT 10.3 G/DL (14-18); INSTRUMENT SERIAL # 8083; METHEMOGLOBIN 0.2 % (0-3); O2 CONTENT 14.5 VOL% (18-24); PCO2 (CO2 TENSION) 30 MMHG (35-45); PO2 (O2 TENSION) 126 MMHG (79-93); pH 7.46 (7.37-7.43)
[2016-10-14 04:05] LABS: ALLENS TEST Pos; BIPAP 15/5 cm.H2O; OPERATOR ID 32193; SAMPLE Arterial
[2016-10-14 04:32] LABS: INTERNATIONAL NORMAL RATI 2.2 UNITS (-); PROTIME (NOT ORD) 24.3 SEC (12.0-14.5)
[2016-10-14 04:57] LABS: HEMATOCRIT 27.2 % (40.0-51.0); HEMOGLOBIN 8.2 g/dL (13.6-17.8); MEAN CORPUS HGB CONC 30.1 g/dL (32.0-36.0); MEAN CORPUSCULAR HEMOGLOB 27.9 pg (26.0-34.0); MEAN CORPUSCULAR VOLUME 92.5 fL (80-100); MEAN PLATELET VOLUME 12.3 fL (9.2-13.0); PLATELET COUNT 352 10/3/uL (150-400); RBC DISTRIBUTION WIDTH 21.2 % (12.0-16.0); RED CELL COUNT 2.94 10/6/uL (4.7-6.1); WHITE BLOOD CELLS 13.2 10/3/uL (4.5-10.5)
[2016-10-14 05:01] LABS: MANUAL DIFF YES %
[2016-10-14 05:11] LABS: ALBUMIN 1.5 G/DL (3.5-5.0); BUN (BLOOD UREA NITROGEN) 20 MG/DL (6-23); CALCIUM, SERUM 8.3 MG/DL (8.5-10.4); CHLORIDE, SERUM 115 MMOL/L (96-112); CO2 (CARBON DIOXIDE) 23 MMOL/L (24-34); CREATININE 1.08 MG/DL (0.70-1.30); GFR AFRICAN AMERICAN 78 ML/MIN (>=60); GFR NON AFRICAN AMERICAN 67 ML/MIN (>=60); GLUCOSE, SERUM 137 MG/DL (60-99); PHOSPHORUS, SERUM 3.2 MG/DL (2.5-4.5); POTASSIUM, SERUM 4.1 MMOL/L (3.5-5.3); SODIUM, SERUM 147 MMOL/L (135-148)
[2016-10-14 06:21] LABS: BAND NEUTROPHILS 8 %; EOSINOPHILS 1 %; EOSINOPHILS ABSOLUTE (CALC) 0.13 10/3/uL (0.0-0.53); IMMATURE GRANS ABSOLUTE (CALC) 0.26 10/3/uL (0.0-0.11); LYMPHOCYTES 10 %; LYMPHOCYTES ABSOLUTE (CALC) 1.32 10/3/uL (0.67-4.30); METAMYELOCYTES 2 %; MONOCYTES 5 %; MONOCYTES ABSOLUTE (CALC) 0.66 10/3/uL (0.21-1.20); NEUTROPHILS ABSOLUTE (CALC) 10.82 10/3/uL (2.02-8.40); SEGMENTED NEUTROPHIL (0) 74 %; TOTAL NUCLEATED CELLS 100
[2016-10-14 06:22] LABS: ANISOCYTOSIS 1+ (5-10/OIF) (0-5/OIF); HYPOCHROMIA 1+ (3-10/OIF) (0-2/OIF); MACROCYTES 1+ (5-10/OIF) (0-5/OIF); PLATELET ESTIMATE ADQ (ADEQUATE); POLYCHROMASIA 1+ (2-5/OIF) (0-1/OIF); TOXIC GRANULATION SLT; VACUOLATED NEUTROPHILES OCC
[2016-10-14 06:43] LABS: PROCALCITONIN 0.43 ng/mL (<0.5)
[2016-10-14 08:07] LABS: ALLENS TEST Pos; BE (BASE EXCESS) -1.6 MEQ/L (0 +/- 2.5); CARBOXYHEMOGLOBIN 0.7 % (0-3); HEMOBLOGIN CONTENT 8.6 G/DL (14-18); INSTRUMENT SERIAL # 8083; METHEMOGLOBIN 0.2 % (0-3); MODE CMV; O2 CONTENT 12.4 VOL% (18-24); OPERATOR ID 14382; PCO2 (CO2 TENSION) 33 MMHG (35-45); PO2 (O2 TENSION) 188 MMHG (79-93); SAMPLE Arterial; TIDAL VOLUME 500 ML; pH 7.45 (7.37-7.43)
[2016-10-14 10:54] LABS: A/G RATIO 0.3 (0.7-1.9); GLOBULIN 4.9 G/DL (2.5-4.1); PREALBUMIN 4.3 MG/DL (17.0-43.0); SGOT(AST) 58 U/L (5-40); SGPT(ALT) 47 U/L (5-65); TOTAL BILIRUBIN 1.7 MG/DL (0-1.2); TOTAL PROTEIN 6.4 G/DL (6.0-8.5)
[2016-10-14 10:55] LABS: ALKALINE PHOSPHATASE 203 U/L (45-117)
[2016-10-15 03:55] LABS: HEMATOCRIT 24.8 % (40.0-51.0); HEMOGLOBIN 7.6 g/dL (13.6-17.8); MEAN CORPUS HGB CONC 30.6 g/dL (32.0-36.0); MEAN CORPUSCULAR HEMOGLOB 29.1 pg (26.0-34.0); MEAN PLATELET VOLUME 11.4 fL (9.2-13.0); PLATELET COUNT 376 10/3/uL (150-400); RBC DISTRIBUTION WIDTH 21.3 % (12.0-16.0); RED CELL COUNT 2.61 10/6/uL (4.7-6.1); WHITE BLOOD CELLS 13.5 10/3/uL (4.5-10.5)
[2016-10-15 03:56] LABS: MANUAL DIFF YES %
[2016-10-15 04:01] LABS: INTERNATIONAL NORMAL RATI 2.1 UNITS (-); PROTIME (NOT ORD) 23.2 SEC (12.0-14.5)
[2016-10-15 04:10] LABS: BUN (BLOOD UREA NITROGEN) 21 MG/DL (6-23); CALCIUM, SERUM 8.1 MG/DL (8.5-10.4); CHLORIDE, SERUM 113 MMOL/L (96-112); CO2 (CARBON DIOXIDE) 23 MMOL/L (24-34); CREATININE 1.26 MG/DL (0.70-1.30); GFR AFRICAN AMERICAN 65 ML/MIN (>=60); GFR NON AFRICAN AMERICAN 56 ML/MIN (>=60); GLUCOSE, SERUM 127 MG/DL (60-99); PHOSPHORUS, SERUM 3.5 MG/DL (2.5-4.5); POTASSIUM, SERUM 3.7 MMOL/L (3.5-5.3); SODIUM, SERUM 146 MMOL/L (135-148)
[2016-10-15 04:11] LABS: ALBUMIN 2.1 G/DL (3.5-5.0)
[2016-10-15 04:38] LABS: ALLENS TEST Pos; BE (BASE EXCESS) -2.8 MEQ/L (0 +/- 2.5); CARBOXYHEMOGLOBIN 1.5 % (0-3); HCO3 (ACTUAL BICARBONATE) 20.4 MEQ/L (23-27); HEMOBLOGIN CONTENT 7.1 G/DL (14-18); INSTRUMENT SERIAL # 8083; METHEMOGLOBIN 0.7 % (0-3); MODE CMV; O2 CONTENT 10.4 VOL% (18-24); OPERATOR ID 14661; PCO2 (CO2 TENSION) 29 MMHG (35-45); PO2 (O2 TENSION) 245 MMHG (79-93); SAMPLE Arterial; TIDAL VOLUME 500 ML; pH 7.47 (7.37-7.43)
[2016-10-15 04:47] LABS: BAND NEUTROPHILS 4 %; BASOPHILS 1 %; BASOPHILS ABSOLUTE (CALC) 0.14 10/3/uL (0.0-0.16); EOSINOPHILS 1 %; EOSINOPHILS ABSOLUTE (CALC) 0.14 10/3/uL (0.0-0.53); IMMATURE GRANS ABSOLUTE (CALC) 0.14 10/3/uL (0.0-0.11); LYMPHOCYTES 7 %; LYMPHOCYTES ABSOLUTE (CALC) 0.95 10/3/uL (0.67-4.30); METAMYELOCYTES 1 %; MONOCYTES 4 %; MONOCYTES ABSOLUTE (CALC) 0.54 10/3/uL (0.21-1.20); NEUTROPHILS ABSOLUTE (CALC) 11.61 10/3/uL (2.02-8.40); SEGMENTED NEUTROPHIL (0) 82 %; TOTAL NUCLEATED CELLS 100
[2016-10-15 04:59] LABS: ANISOCYTOSIS 1+ (5-10/OIF) (0-5/OIF)
[2016-10-15 05:18] LABS: HYPOCHROMIA 1+ (3-10/OIF) (0-2/OIF); MACROCYTES 1+ (5-10/OIF) (0-5/OIF); POLYCHROMASIA 1+ (2-5/OIF) (0-1/OIF)
[2016-10-15 05:19] LABS: TOXIC GRANULATION SLT
[2016-10-16 03:56] LABS: ALLENS TEST Pos; CARBOXYHEMOGLOBIN 0.4 % (0-3); HCO3 (ACTUAL BICARBONATE) 21.9 MEQ/L (23-27); HEMOBLOGIN CONTENT 9.4 G/DL (14-18); INSTRUMENT SERIAL # 8083; METHEMOGLOBIN 0.2 % (0-3); OPERATOR ID 33214; PCO2 (CO2 TENSION) 30 MMHG (35-45); PO2 (O2 TENSION) 98 MMHG (79-93); SAMPLE Arterial; TIDAL VOLUME 500 ML; pH 7.48 (7.37-7.43)
[2016-10-16 05:53] LABS: PROTIME (NOT ORD) 22.3 SEC (12.0-14.5)
[2016-10-16 05:57] LABS: BASOPHILS 0.2 %; BASOPHILS ABSOLUTE 0.03 10/3/uL (0.0-0.16); EOSINOPHILS 0.9 %; EOSINOPHILS ABSOLUTE 0.14 10/3/uL (0.0-0.53); HEMOGLOBIN 7.6 g/dL (13.6-17.8); IMMATURE GRANULOCYTES 1.5 %; IMMATURE GRANULOCYTES ABSOLUTE 0.24 10/3/uL (0.0-0.11); LYMPHOCYTES 5.9 %; LYMPHOCYTES ABSOLUTE 0.95 10/3/uL (0.67-4.30); MANUAL DIFF NO %; MEAN CORPUS HGB CONC 30.4 g/dL (32.0-36.0); MEAN CORPUSCULAR HEMOGLOB 28.9 pg (26.0-34.0); MEAN CORPUSCULAR VOLUME 95.1 fL (80-100); MONOCYTES 5.9 %; MONOCYTES ABSOLUTE 0.95 10/3/uL (0.21-1.20); NEUTROPHILS 85.6 %; NEUTROPHILS ABSOLUTE 13.83 10/3/uL (2.02-8.40); PLATELET COUNT 426 10/3/uL (150-400); RED CELL COUNT 2.63 10/6/uL (4.7-6.1); WHITE BLOOD CELLS 16.1 10/3/uL (4.5-10.5)
[2016-10-16 06:01] LABS: ALBUMIN 1.8 G/DL (3.5-5.0); BUN (BLOOD UREA NITROGEN) 19 MG/DL (6-23); CHLORIDE, SERUM 113 MMOL/L (96-112); CO2 (CARBON DIOXIDE) 24 MMOL/L (24-34); CREATININE 1.07 MG/DL (0.70-1.30); GFR AFRICAN AMERICAN 79 ML/MIN (>=60); GFR NON AFRICAN AMERICAN 68 ML/MIN (>=60); GLUCOSE, SERUM 155 MG/DL (60-99); PHOSPHORUS, SERUM 2.9 MG/DL (2.5-4.5); POTASSIUM, SERUM 3.5 MMOL/L (3.5-5.3); SODIUM, SERUM 147 MMOL/L (135-148); VANCOMYCIN TROUGH 20.2 MCG/ML (10.0-20.0)
[2016-10-17 03:48] LABS: ALLENS TEST Pos; BE (BASE EXCESS) -0.9 MEQ/L (0 +/- 2.5); CARBOXYHEMOGLOBIN 1.1 % (0-3); INSTRUMENT SERIAL # 8083; METHEMOGLOBIN 0.4 % (0-3); MODE CMV; O2 CONTENT 11.2 VOL% (18-24); OPERATOR ID 23712; PCO2 (CO2 TENSION) 34 MMHG (35-45); PO2 (O2 TENSION) 113 MMHG (79-93); SAMPLE Arterial; TIDAL VOLUME 500 ML; pH 7.45 (7.37-7.43)
[2016-10-17 05:40] LABS: BASOPHILS 0.3 %; BASOPHILS ABSOLUTE 0.04 10/3/uL (0.0-0.16); BUN (BLOOD UREA NITROGEN) 17 MG/DL (6-23); CALCIUM, SERUM 8.4 MG/DL (8.5-10.4); CHLORIDE, SERUM 116 MMOL/L (96-112); CO2 (CARBON DIOXIDE) 23 MMOL/L (24-34); CREATININE 0.98 MG/DL (0.70-1.30); EOSINOPHILS 1.4 %; GFR AFRICAN AMERICAN 88 ML/MIN (>=60); GFR NON AFRICAN AMERICAN 76 ML/MIN (>=60); GLUCOSE, SERUM 164 MG/DL (60-99); HEMATOCRIT 25.9 % (40.0-51.0); HEMOGLOBIN 7.8 g/dL (13.6-17.8); IMMATURE GRANULOCYTES 1.5 %; IMMATURE GRANULOCYTES ABSOLUTE 0.21 10/3/uL (0.0-0.11); LYMPHOCYTES 8.8 %; LYMPHOCYTES ABSOLUTE 1.23 10/3/uL (0.67-4.30); MANUAL DIFF NO %; MEAN CORPUS HGB CONC 30.1 g/dL (32.0-36.0); MEAN CORPUSCULAR HEMOGLOB 29.3 pg (26.0-34.0); MEAN CORPUSCULAR VOLUME 97.4 fL (80-100); MEAN PLATELET VOLUME 11.9 fL (9.2-13.0); MONOCYTES 4.6 %; MONOCYTES ABSOLUTE 0.65 10/3/uL (0.21-1.20); NEUTROPHILS 83.4 %; NEUTROPHILS ABSOLUTE 11.65 10/3/uL (2.02-8.40); PHOSPHORUS, SERUM 2.8 MG/DL (2.5-4.5); PLATELET COUNT 407 10/3/uL (150-400); RBC DISTRIBUTION WIDTH 21.1 % (12.0-16.0); RED CELL COUNT 2.66 10/6/uL (4.7-6.1); SODIUM, SERUM 148 MMOL/L (135-148)
[2016-10-17 05:44] LABS: PROTIME (NOT ORD) 22.7 SEC (12.0-14.5)
[2016-10-17 06:30] LABS: PROCALCITONIN 0.32 ng/mL (<0.5)
[2016-10-18 05:57] LABS: BUN (BLOOD UREA NITROGEN) 16 MG/DL (6-23); CALCIUM, SERUM 8.5 MG/DL (8.5-10.4); CHLORIDE, SERUM 117 MMOL/L (96-112); CO2 (CARBON DIOXIDE) 23 MMOL/L (24-34); CREATININE 0.87 MG/DL (0.70-1.30); GFR AFRICAN AMERICAN 99 ML/MIN (>=60); GFR NON AFRICAN AMERICAN 85 ML/MIN (>=60); GLUCOSE, SERUM 141 MG/DL (60-99); PHOSPHORUS, SERUM 2.5 MG/DL (2.5-4.5); POTASSIUM, SERUM 3.8 MMOL/L (3.5-5.3); SODIUM, SERUM 149 MMOL/L (135-148)
[2016-10-18 05:59] LABS: BASOPHILS 0.3 %; BASOPHILS ABSOLUTE 0.04 10/3/uL (0.0-0.16); EOSINOPHILS 1.5 %; EOSINOPHILS ABSOLUTE 0.21 10/3/uL (0.0-0.53); HEMATOCRIT 24.5 % (40.0-51.0); HEMOGLOBIN 7.4 g/dL (13.6-17.8); IMMATURE GRANULOCYTES ABSOLUTE 0.14 10/3/uL (0.0-0.11); LYMPHOCYTES 8.8 %; LYMPHOCYTES ABSOLUTE 1.22 10/3/uL (0.67-4.30); MANUAL DIFF NO %; MEAN CORPUS HGB CONC 30.2 g/dL (32.0-36.0); MEAN CORPUSCULAR HEMOGLOB 28.6 pg (26.0-34.0); MEAN CORPUSCULAR VOLUME 94.6 fL (80-100); MONOCYTES 4.4 %; MONOCYTES ABSOLUTE 0.61 10/3/uL (0.21-1.20); NEUTROPHILS ABSOLUTE 11.71 10/3/uL (2.02-8.40); PLATELET COUNT 464 10/3/uL (150-400); RBC DISTRIBUTION WIDTH 20.8 % (12.0-16.0); RED CELL COUNT 2.59 10/6/uL (4.7-6.1); WHITE BLOOD CELLS 13.9 10/3/uL (4.5-10.5)
[2016-10-18 06:02] LABS: INTERNATIONAL NORMAL RATI 1.9 UNITS (-); PROTIME (NOT ORD) 21.3 SEC (12.0-14.5)
[2016-10-19 05:09] LABS: INTERNATIONAL NORMAL RATI 1.9 UNITS (-); PROTIME (NOT ORD) 21.4 SEC (12.0-14.5)
[2016-10-19 09:43] LABS: HEMATOCRIT 23.7 % (40.0-51.0); MANUAL DIFF YES %; MEAN CORPUS HGB CONC 29.5 g/dL (32.0-36.0); MEAN CORPUSCULAR HEMOGLOB 28.8 pg (26.0-34.0); MEAN CORPUSCULAR VOLUME 97.5 fL (80-100); MEAN PLATELET VOLUME 11.4 fL (9.2-13.0); PLATELET COUNT 414 10/3/uL (150-400); RBC DISTRIBUTION WIDTH 20.7 % (12.0-16.0); RED CELL COUNT 2.43 10/6/uL (4.7-6.1); WHITE BLOOD CELLS 12.8 10/3/uL (4.5-10.5)
[2016-10-19 09:53] LABS: ALBUMIN 1.6 G/DL (3.5-5.0); ALKALINE PHOSPHATASE 194 U/L (45-117); CALCIUM, SERUM 8.5 MG/DL (8.5-10.4); CHLORIDE, SERUM 117 MMOL/L (96-112); CO2 (CARBON DIOXIDE) 20 MMOL/L (24-34); CREATININE 0.94 MG/DL (0.70-1.30); GFR AFRICAN AMERICAN 92 ML/MIN (>=60); GFR NON AFRICAN AMERICAN 80 ML/MIN (>=60); PHOSPHORUS, SERUM 3.2 MG/DL (2.5-4.5); POTASSIUM, SERUM 4.1 MMOL/L (3.5-5.3); SGOT(AST) 62 U/L (5-40); SGPT(ALT) 38 U/L (5-65); SODIUM, SERUM 150 MMOL/L (135-148); TOTAL PROTEIN 7.1 G/DL (6.0-8.5)
[2016-10-19 09:54] LABS: BUN (BLOOD UREA NITROGEN) 20 MG/DL (6-23); DIRECT BILIRUBIN 0.6 MG/DL (0.0-0.4); GLUCOSE, SERUM 179 MG/DL (60-99); INDIRECT BILIRUBIN(NOT ORDER) 0.2 MG/DL (0.1-0.9); TOTAL BILIRUBIN 0.8 MG/DL (0-1.2)
[2016-10-19 10:15] LABS: BASOPHILS 1 %; BASOPHILS ABSOLUTE (CALC) 0.13 10/3/uL (0.0-0.16); EOSINOPHILS 2 %; EOSINOPHILS ABSOLUTE (CALC) 0.26 10/3/uL (0.0-0.53); LYMPHOCYTES 13 %; LYMPHOCYTES ABSOLUTE (CALC) 1.66 10/3/uL (0.67-4.30); MONOCYTES 2 %; MONOCYTES ABSOLUTE (CALC) 0.26 10/3/uL (0.21-1.20); PLATELET ESTIMATE SLT INC (ADEQUATE); SEGMENTED NEUTROPHIL (0) 82 %; TOTAL NUCLEATED CELLS 100
[2016-10-19 10:16] LABS: ANISOCYTOSIS 1+ (5-10/OIF) (0-5/OIF); MACROCYTES 1+ (5-10/OIF) (0-5/OIF); POLYCHROMASIA 1+ (2-5/OIF) (0-1/OIF)
[2016-10-20 06:39] LABS: BASOPHILS 0.4 %; BASOPHILS ABSOLUTE 0.06 10/3/uL (0.0-0.16); EOSINOPHILS 1.6 %; EOSINOPHILS ABSOLUTE 0.22 10/3/uL (0.0-0.53); HEMATOCRIT 25.9 % (40.0-51.0); HEMOGLOBIN 7.7 g/dL (13.6-17.8); IMMATURE GRANULOCYTES 0.7 %; IMMATURE GRANULOCYTES ABSOLUTE 0.09 10/3/uL (0.0-0.11); LYMPHOCYTES 8.7 %; MEAN CORPUS HGB CONC 29.7 g/dL (32.0-36.0); MEAN CORPUSCULAR HEMOGLOB 29.1 pg (26.0-34.0); MEAN CORPUSCULAR VOLUME 97.7 fL (80-100); MEAN PLATELET VOLUME 11.3 fL (9.2-13.0); MONOCYTES 3.9 %; MONOCYTES ABSOLUTE 0.53 10/3/uL (0.21-1.20); NEUTROPHILS 84.7 %; NEUTROPHILS ABSOLUTE 11.65 10/3/uL (2.02-8.40); PLATELET COUNT 451 10/3/uL (150-400); RBC DISTRIBUTION WIDTH 20.4 % (12.0-16.0); RED CELL COUNT 2.65 10/6/uL (4.7-6.1); WHITE BLOOD CELLS 13.8 10/3/uL (4.5-10.5)
[2016-10-20 06:41] LABS: MANUAL DIFF NO %
[2016-10-20 06:52] LABS: BUN (BLOOD UREA NITROGEN) 20 MG/DL (6-23); CALCIUM, SERUM 8.5 MG/DL (8.5-10.4); CHLORIDE, SERUM 117 MMOL/L (96-112); CO2 (CARBON DIOXIDE) 22 MMOL/L (24-34); CREATININE 0.87 MG/DL (0.70-1.30); GFR AFRICAN AMERICAN 99 ML/MIN (>=60); GFR NON AFRICAN AMERICAN 85 ML/MIN (>=60); PHOSPHORUS, SERUM 3.2 MG/DL (2.5-4.5); SODIUM, SERUM 149 MMOL/L (135-148); VANCOMYCIN TROUGH 15.5 MCG/ML (10.0-20.0)
[2016-10-20 06:53] LABS: GLUCOSE, SERUM 128 MG/DL (60-99)
[2016-10-20 07:01] LABS: INTERNATIONAL NORMAL RATI 1.5 UNITS (-); PROTIME (NOT ORD) 18.2 SEC (12.0-14.5)
[2016-10-20 07:16] LABS: PROCALCITONIN 0.14 ng/mL (<0.5)
[2016-10-21 04:17] LABS: BASOPHILS 0.5 %; BASOPHILS ABSOLUTE 0.06 10/3/uL (0.0-0.16); EOSINOPHILS 1.7 %; EOSINOPHILS ABSOLUTE 0.21 10/3/uL (0.0-0.53); HEMATOCRIT 25.8 % (40.0-51.0); HEMOGLOBIN 7.7 g/dL (13.6-17.8); IMMATURE GRANULOCYTES 0.5 %; IMMATURE GRANULOCYTES ABSOLUTE 0.06 10/3/uL (0.0-0.11); LYMPHOCYTES 9.3 %; LYMPHOCYTES ABSOLUTE 1.12 10/3/uL (0.67-4.30); MEAN CORPUS HGB CONC 29.8 g/dL (32.0-36.0); MEAN CORPUSCULAR HEMOGLOB 29.2 pg (26.0-34.0); MEAN CORPUSCULAR VOLUME 97.7 fL (80-100); MEAN PLATELET VOLUME 11.2 fL (9.2-13.0); MONOCYTES 5.6 %; MONOCYTES ABSOLUTE 0.67 10/3/uL (0.21-1.20); NEUTROPHILS 82.4 %; NEUTROPHILS ABSOLUTE 9.89 10/3/uL (2.02-8.40); PLATELET COUNT 418 10/3/uL (150-400); RED CELL COUNT 2.64 10/6/uL (4.7-6.1)
[2016-10-21 04:24] LABS: MANUAL DIFF NO %
[2016-10-21 04:28] LABS: INTERNATIONAL NORMAL RATI 1.6 UNITS (-)
[2016-10-21 04:33] LABS: A/G RATIO 0.3 (0.7-1.9); ALBUMIN 1.7 G/DL (3.5-5.0); ALKALINE PHOSPHATASE 183 U/L (45-117); BUN (BLOOD UREA NITROGEN) 18 MG/DL (6-23); CALCIUM, SERUM 8.5 MG/DL (8.5-10.4); CHLORIDE, SERUM 119 MMOL/L (96-112); CO2 (CARBON DIOXIDE) 22 MMOL/L (24-34); CREATININE 0.87 MG/DL (0.70-1.30); GFR AFRICAN AMERICAN 99 ML/MIN (>=60); GFR NON AFRICAN AMERICAN 85 ML/MIN (>=60); GLOBULIN 5.6 G/DL (2.5-4.1); GLUCOSE, SERUM 130 MG/DL (60-99); PHOSPHORUS, SERUM 2.7 MG/DL (2.5-4.5); POTASSIUM, SERUM 4.1 MMOL/L (3.5-5.3); PREALBUMIN 7.4 MG/DL (17.0-43.0); SGOT(AST) 56 U/L (5-40); SGPT(ALT) 37 U/L (5-65); SODIUM, SERUM 150 MMOL/L (135-148); TOTAL BILIRUBIN 1.1 MG/DL (0-1.2); TOTAL PROTEIN 7.3 G/DL (6.0-8.5)
[2016-10-22 04:41] LABS: BASOPHILS 0.4 %; BASOPHILS ABSOLUTE 0.05 10/3/uL (0.0-0.16); EOSINOPHILS 1.7 %; EOSINOPHILS ABSOLUTE 0.21 10/3/uL (0.0-0.53); HEMATOCRIT 24.2 % (40.0-51.0); HEMOGLOBIN 7.2 g/dL (13.6-17.8); IMMATURE GRANULOCYTES 0.5 %; IMMATURE GRANULOCYTES ABSOLUTE 0.06 10/3/uL (0.0-0.11); LYMPHOCYTES 11.4 %; LYMPHOCYTES ABSOLUTE 1.43 10/3/uL (0.67-4.30); MEAN CORPUS HGB CONC 29.8 g/dL (32.0-36.0); MEAN CORPUSCULAR HEMOGLOB 28.3 pg (26.0-34.0); MEAN CORPUSCULAR VOLUME 95.3 fL (80-100); MEAN PLATELET VOLUME 11.5 fL (9.2-13.0); MONOCYTES 6.1 %; MONOCYTES ABSOLUTE 0.76 10/3/uL (0.21-1.20); NEUTROPHILS 79.9 %; NEUTROPHILS ABSOLUTE 10.04 10/3/uL (2.02-8.40); PLATELET COUNT 425 10/3/uL (150-400); RBC DISTRIBUTION WIDTH 20.1 % (12.0-16.0); RED CELL COUNT 2.54 10/6/uL (4.7-6.1); WHITE BLOOD CELLS 12.6 10/3/uL (4.5-10.5)
[2016-10-22 04:52] LABS: BUN (BLOOD UREA NITROGEN) 15 MG/DL (6-23); CALCIUM, SERUM 8.5 MG/DL (8.5-10.4); CHLORIDE, SERUM 116 MMOL/L (96-112); CO2 (CARBON DIOXIDE) 22 MMOL/L (24-34); CREATININE 0.76 MG/DL (0.70-1.30); GFR AFRICAN AMERICAN 104 ML/MIN (>=60); GFR NON AFRICAN AMERICAN 90 ML/MIN (>=60); PHOSPHORUS, SERUM 2.4 MG/DL (2.5-4.5); SODIUM, SERUM 147 MMOL/L (135-148)
[2016-10-22 04:53] LABS: MANUAL DIFF NO %
[2016-10-22 04:56] LABS: INTERNATIONAL NORMAL RATI 1.4 UNITS (-); PROTIME (NOT ORD) 17.4 SEC (12.0-14.5)
[2016-10-22 04:57] LABS: GLUCOSE, SERUM 171 MG/DL (60-99)
[2016-10-22 18:27] LABS: ALLENS TEST Pos; BE (BASE EXCESS) 0.9 MEQ/L (0 +/- 2.5); CARBOXYHEMOGLOBIN 0.8 % (0-3); HCO3 (ACTUAL BICARBONATE) 24.4 MEQ/L (23-27); HEMOBLOGIN CONTENT 8.3 G/DL (14-18); INSTRUMENT SERIAL # 8083; METHEMOGLOBIN 0.4 % (0-3); MODE CMV; O2 CONTENT 9.9 VOL% (18-24); OPERATOR ID 35188; PCO2 (CO2 TENSION) 34 MMHG (35-45); PO2 (O2 TENSION) 49 MMHG (79-93); SAMPLE Arterial; TIDAL VOLUME 500 ML; pH 7.47 (7.37-7.43)
[2016-10-23 06:00] LABS: INTERNATIONAL NORMAL RATI 1.6 UNITS (-); PROTIME (NOT ORD) 18.7 SEC (12.0-14.5)
[2016-10-23 06:07] LABS: CALCIUM, SERUM 8.3 MG/DL (8.5-10.4); CHLORIDE, SERUM 111 MMOL/L (96-112); CO2 (CARBON DIOXIDE) 26 MMOL/L (24-34); CREATININE 0.74 MG/DL (0.70-1.30); GFR AFRICAN AMERICAN 105 ML/MIN (>=60); GFR NON AFRICAN AMERICAN 91 ML/MIN (>=60); GLUCOSE, SERUM 160 MG/DL (60-99); PHOSPHORUS, SERUM 2.3 MG/DL (2.5-4.5); POTASSIUM, SERUM 4.1 MMOL/L (3.5-5.3); SODIUM, SERUM 145 MMOL/L (135-148)
[2016-10-23 06:09] LABS: BUN (BLOOD UREA NITROGEN) 21 MG/DL (6-23)
[2016-10-23 06:37] LABS: BASOPHILS 0.3 %; BASOPHILS ABSOLUTE 0.04 10/3/uL (0.0-0.16); EOSINOPHILS 1.8 %; EOSINOPHILS ABSOLUTE 0.22 10/3/uL (0.0-0.53); HEMATOCRIT 24.4 % (40.0-51.0); HEMOGLOBIN 7.5 g/dL (13.6-17.8); IMMATURE GRANULOCYTES 0.3 %; IMMATURE GRANULOCYTES ABSOLUTE 0.04 10/3/uL (0.0-0.11); LYMPHOCYTES 12.6 %; LYMPHOCYTES ABSOLUTE 1.52 10/3/uL (0.67-4.30); MEAN CORPUS HGB CONC 30.7 g/dL (32.0-36.0); MEAN CORPUSCULAR HEMOGLOB 29.4 pg (26.0-34.0); MEAN CORPUSCULAR VOLUME 95.7 fL (80-100); MEAN PLATELET VOLUME 11.7 fL (9.2-13.0); MONOCYTES 5.7 %; MONOCYTES ABSOLUTE 0.69 10/3/uL (0.21-1.20); NEUTROPHILS 79.3 %; NEUTROPHILS ABSOLUTE 9.55 10/3/uL (2.02-8.40); PLATELET COUNT 398 10/3/uL (150-400); RBC DISTRIBUTION WIDTH 20.2 % (12.0-16.0); RED CELL COUNT 2.55 10/6/uL (4.7-6.1); WHITE BLOOD CELLS 12.1 10/3/uL (4.5-10.5)
[2016-10-23 06:41] LABS: MANUAL DIFF NO %
[2016-10-24 05:20] LABS: INTERNATIONAL NORMAL RATI 1.5 UNITS (-); PROTIME (NOT ORD) 18.2 SEC (12.0-14.5)
[2016-10-24 06:55] LABS: BASOPHILS 0.4 %; BASOPHILS ABSOLUTE 0.05 10/3/uL (0.0-0.16); EOSINOPHILS 1.9 %; EOSINOPHILS ABSOLUTE 0.25 10/3/uL (0.0-0.53); HEMATOCRIT 24.2 % (40.0-51.0); HEMOGLOBIN 7.3 g/dL (13.6-17.8); IMMATURE GRANULOCYTES 0.5 %; IMMATURE GRANULOCYTES ABSOLUTE 0.06 10/3/uL (0.0-0.11); LYMPHOCYTES 10.7 %; LYMPHOCYTES ABSOLUTE 1.42 10/3/uL (0.67-4.30); MEAN CORPUS HGB CONC 30.2 g/dL (32.0-36.0); MEAN CORPUSCULAR HEMOGLOB 28.6 pg (26.0-34.0); MEAN CORPUSCULAR VOLUME 94.9 fL (80-100); MEAN PLATELET VOLUME 11.9 fL (9.2-13.0); MONOCYTES 6.7 %; MONOCYTES ABSOLUTE 0.89 10/3/uL (0.21-1.20); NEUTROPHILS 79.8 %; NEUTROPHILS ABSOLUTE 10.56 10/3/uL (2.02-8.40); PLATELET COUNT 378 10/3/uL (150-400); RBC DISTRIBUTION WIDTH 20.2 % (12.0-16.0); RED CELL COUNT 2.55 10/6/uL (4.7-6.1); WHITE BLOOD CELLS 13.2 10/3/uL (4.5-10.5)
[2016-10-24 06:57] LABS: MANUAL DIFF NO %
[2016-10-24 07:03] LABS: BUN (BLOOD UREA NITROGEN) 21 MG/DL (6-23); CALCIUM, SERUM 8.7 MG/DL (8.5-10.4); CHLORIDE, SERUM 110 MMOL/L (96-112); CO2 (CARBON DIOXIDE) 25 MMOL/L (24-34); CREATININE 0.72 MG/DL (0.70-1.30); GFR AFRICAN AMERICAN 107 ML/MIN (>=60); GFR NON AFRICAN AMERICAN 92 ML/MIN (>=60); GLUCOSE, SERUM 145 MG/DL (60-99); PHOSPHORUS, SERUM 2.3 MG/DL (2.5-4.5); SODIUM, SERUM 143 MMOL/L (135-148)
[2016-10-25 04:27] LABS: HEMOGLOBIN 7.1 g/dL (13.6-17.8); MEAN CORPUS HGB CONC 30.9 g/dL (32.0-36.0); MEAN CORPUSCULAR HEMOGLOB 29.3 pg (26.0-34.0); MEAN PLATELET VOLUME 11.1 fL (9.2-13.0); PLATELET COUNT 303 10/3/uL (150-400); RBC DISTRIBUTION WIDTH 20.2 % (12.0-16.0); RED CELL COUNT 2.42 10/6/uL (4.7-6.1); WHITE BLOOD CELLS 11.1 10/3/uL (4.5-10.5)
[2016-10-25 04:28] LABS: MANUAL DIFF YES %
[2016-10-25 04:35] LABS: INTERNATIONAL NORMAL RATI 1.6 UNITS (-)
[2016-10-25 04:45] LABS: BUN (BLOOD UREA NITROGEN) 19 MG/DL (6-23); CALCIUM, SERUM 8.4 MG/DL (8.5-10.4); CHLORIDE, SERUM 108 MMOL/L (96-112); CO2 (CARBON DIOXIDE) 26 MMOL/L (24-34); CREATININE 0.57 MG/DL (0.70-1.30); GFR AFRICAN AMERICAN 117 ML/MIN (>=60); GFR NON AFRICAN AMERICAN 101 ML/MIN (>=60); GLUCOSE, SERUM 140 MG/DL (60-99); POTASSIUM, SERUM 3.8 MMOL/L (3.5-5.3); SODIUM, SERUM 141 MMOL/L (135-148)
[2016-10-25 05:12] LABS: ANISOCYTOSIS 1+ (5-10/OIF) (0-5/OIF); GIANT PLATELET OCC; IMMATURE GRANS ABSOLUTE (CALC) 0.11 10/3/uL (0.0-0.11); LYMPHOCYTES 7 %; LYMPHOCYTES ABSOLUTE (CALC) 0.78 10/3/uL (0.67-4.30); MONOCYTES 4 %; MONOCYTES ABSOLUTE (CALC) 0.44 10/3/uL (0.21-1.20); MYELOCYTES 1 %; NEUTROPHILS ABSOLUTE (CALC) 9.77 10/3/uL (2.02-8.40); PLATELET ESTIMATE ADQ (ADEQUATE); SEGMENTED NEUTROPHIL (0) 88 %; TOTAL NUCLEATED CELLS 100
[2016-10-26 01:32] LABS: HEMATOCRIT 24.2 % (40.0-51.0); HEMOGLOBIN 7.7 g/dL (13.6-17.8); MANUAL DIFF YES %; MEAN CORPUS HGB CONC 31.8 g/dL (32.0-36.0); MEAN CORPUSCULAR VOLUME 94.2 fL (80-100); MEAN PLATELET VOLUME 11.7 fL (9.2-13.0); PLATELET COUNT 326 10/3/uL (150-400); RBC DISTRIBUTION WIDTH 20.4 % (12.0-16.0); RED CELL COUNT 2.57 10/6/uL (4.7-6.1); WHITE BLOOD CELLS 11.8 10/3/uL (4.5-10.5)
[2016-10-26 01:38] LABS: INTERNATIONAL NORMAL RATI 1.5 UNITS (-); PROTIME (NOT ORD) 18.3 SEC (12.0-14.5)
[2016-10-26 01:46] LABS: BUN (BLOOD UREA NITROGEN) 19 MG/DL (6-23); CALCIUM, SERUM 8.4 MG/DL (8.5-10.4); CHLORIDE, SERUM 106 MMOL/L (96-112); CO2 (CARBON DIOXIDE) 25 MMOL/L (24-34); CREATININE 0.66 MG/DL (0.70-1.30); GFR AFRICAN AMERICAN 110 ML/MIN (>=60); GFR NON AFRICAN AMERICAN 95 ML/MIN (>=60); GLUCOSE, SERUM 130 MG/DL (60-99); PHOSPHORUS, SERUM 2.2 MG/DL (2.5-4.5); POTASSIUM, SERUM 3.6 MMOL/L (3.5-5.3); SODIUM, SERUM 140 MMOL/L (135-148)
[2016-10-26 01:48] LABS: ALBUMIN 2.1 G/DL (3.5-5.0)
[2016-10-26 01:56] LABS: ANISOCYTOSIS 1+ (5-10/OIF) (0-5/OIF); EOSINOPHILS 1 %; EOSINOPHILS ABSOLUTE (CALC) 0.12 10/3/uL (0.0-0.53); LYMPHOCYTES 8 %; LYMPHOCYTES ABSOLUTE (CALC) 0.94 10/3/uL (0.67-4.30); MONOCYTES 3 %; MONOCYTES ABSOLUTE (CALC) 0.35 10/3/uL (0.21-1.20); NEUTROPHILS ABSOLUTE (CALC) 10.38 10/3/uL (2.02-8.40); PLATELET ESTIMATE ADQ (ADEQUATE); SEGMENTED NEUTROPHIL (0) 88 %; TOTAL NUCLEATED CELLS 100
[2016-10-27 04:24] LABS: BASOPHILS 0.3 %; BASOPHILS ABSOLUTE 0.04 10/3/uL (0.0-0.16); EOSINOPHILS ABSOLUTE 0.25 10/3/uL (0.0-0.53); HEMATOCRIT 22.5 % (40.0-51.0); HEMOGLOBIN 7.1 g/dL (13.6-17.8); IMMATURE GRANULOCYTES 0.5 %; IMMATURE GRANULOCYTES ABSOLUTE 0.06 10/3/uL (0.0-0.11); LYMPHOCYTES 12.4 %; LYMPHOCYTES ABSOLUTE 1.54 10/3/uL (0.67-4.30); MEAN CORPUS HGB CONC 31.6 g/dL (32.0-36.0); MEAN CORPUSCULAR HEMOGLOB 30.1 pg (26.0-34.0); MEAN CORPUSCULAR VOLUME 95.3 fL (80-100); MEAN PLATELET VOLUME 11.4 fL (9.2-13.0); MONOCYTES ABSOLUTE 0.86 10/3/uL (0.21-1.20); NEUTROPHILS 77.8 %; NEUTROPHILS ABSOLUTE 9.62 10/3/uL (2.02-8.40); PLATELET COUNT 312 10/3/uL (150-400); RBC DISTRIBUTION WIDTH 20.7 % (12.0-16.0); RED CELL COUNT 2.36 10/6/uL (4.7-6.1); WHITE BLOOD CELLS 12.4 10/3/uL (4.5-10.5)
[2016-10-27 04:26] LABS: MANUAL DIFF NO %
[2016-10-27 04:35] LABS: ALBUMIN 1.8 G/DL (3.5-5.0); BUN (BLOOD UREA NITROGEN) 17 MG/DL (6-23); CALCIUM, SERUM 8.5 MG/DL (8.5-10.4); CHLORIDE, SERUM 107 MMOL/L (96-112); CO2 (CARBON DIOXIDE) 24 MMOL/L (24-34); CREATININE 0.67 MG/DL (0.70-1.30); GFR AFRICAN AMERICAN 110 ML/MIN (>=60); GFR NON AFRICAN AMERICAN 95 ML/MIN (>=60); GLUCOSE, SERUM 112 MG/DL (60-99); PHOSPHORUS, SERUM 2.8 MG/DL (2.5-4.5); POTASSIUM, SERUM 4.2 MMOL/L (3.5-5.3); SODIUM, SERUM 141 MMOL/L (135-148)
[2016-10-27 21:38] LABS: ALLENS TEST Pos; BE (BASE EXCESS) 0.7 MEQ/L (0 +/- 2.5); CARBOXYHEMOGLOBIN 0.5 % (0-3); HCO3 (ACTUAL BICARBONATE) 24.2 MEQ/L (23-27); HEMOBLOGIN CONTENT 8.6 G/DL (14-18); INSTRUMENT SERIAL # 8083; METHEMOGLOBIN 0.5 % (0-3); MODE CMV; O2 CONTENT 12.3 VOL% (18-24); OPERATOR ID 33214; PCO2 (CO2 TENSION) 34 MMHG (35-45); PO2 (O2 TENSION) 172 MMHG (79-93); SAMPLE Arterial; TIDAL VOLUME 500 ML; pH 7.47 (7.37-7.43)
[2016-10-28 04:19] LABS: BASOPHILS 0.3 %; BASOPHILS ABSOLUTE 0.04 10/3/uL (0.0-0.16); EOSINOPHILS 0.8 %; EOSINOPHILS ABSOLUTE 0.11 10/3/uL (0.0-0.53); HEMATOCRIT 22.2 % (40.0-51.0); IMMATURE GRANULOCYTES 0.3 %; IMMATURE GRANULOCYTES ABSOLUTE 0.04 10/3/uL (0.0-0.11); LYMPHOCYTES 10.7 %; LYMPHOCYTES ABSOLUTE 1.53 10/3/uL (0.67-4.30); MEAN CORPUS HGB CONC 31.1 g/dL (32.0-36.0); MEAN CORPUSCULAR HEMOGLOB 29.5 pg (26.0-34.0); MEAN CORPUSCULAR VOLUME 94.9 fL (80-100); MEAN PLATELET VOLUME 11.7 fL (9.2-13.0); MONOCYTES 8.7 %; MONOCYTES ABSOLUTE 1.25 10/3/uL (0.21-1.20); NEUTROPHILS 79.2 %; NEUTROPHILS ABSOLUTE 11.38 10/3/uL (2.02-8.40); PLATELET COUNT 260 10/3/uL (150-400); RBC DISTRIBUTION WIDTH 20.3 % (12.0-16.0); RED CELL COUNT 2.34 10/6/uL (4.7-6.1); WHITE BLOOD CELLS 14.4 10/3/uL (4.5-10.5)
[2016-10-28 04:21] LABS: MANUAL DIFF NO %
[2016-10-28 04:44] LABS: A/G RATIO 0.3 (0.7-1.9); ALBUMIN 1.7 G/DL (3.5-5.0); BUN (BLOOD UREA NITROGEN) 18 MG/DL (6-23); CALCIUM, SERUM 8.1 MG/DL (8.5-10.4); CHLORIDE, SERUM 107 MMOL/L (96-112); CO2 (CARBON DIOXIDE) 25 MMOL/L (24-34); CREATININE 0.83 MG/DL (0.70-1.30); GFR AFRICAN AMERICAN 100 ML/MIN (>=60); GFR NON AFRICAN AMERICAN 87 ML/MIN (>=60); GLUCOSE, SERUM 130 MG/DL (60-99); PHOSPHORUS, SERUM 2.4 MG/DL (2.5-4.5); POTASSIUM, SERUM 4.4 MMOL/L (3.5-5.3); SGOT(AST) 30 U/L (5-40); SGPT(ALT) 23 U/L (5-65); SODIUM, SERUM 140 MMOL/L (135-148); TOTAL BILIRUBIN 0.8 MG/DL (0-1.2); TOTAL PROTEIN 6.7 G/DL (6.0-8.5)
[2016-10-28 04:46] LABS: ALKALINE PHOSPHATASE 165 U/L (45-117)
[2016-10-28 05:46] LABS: PROCALCITONIN 0.78 ng/mL (<0.5)
[2016-10-28 11:57] LABS: INTERNATIONAL NORMAL RATI 1.9 UNITS (-)
[2016-10-28 11:58] LABS: PROTIME (NOT ORD) 21.8 SEC (12.0-14.5)
[2016-10-29 03:56] LABS: BASOPHILS 0.2 %; BASOPHILS ABSOLUTE 0.02 10/3/uL (0.0-0.16); EOSINOPHILS 2.7 %; EOSINOPHILS ABSOLUTE 0.24 10/3/uL (0.0-0.53); HEMATOCRIT 21.8 % (40.0-51.0); IMMATURE GRANULOCYTES 0.3 %; IMMATURE GRANULOCYTES ABSOLUTE 0.03 10/3/uL (0.0-0.11); LYMPHOCYTES 13.7 %; LYMPHOCYTES ABSOLUTE 1.22 10/3/uL (0.67-4.30); MEAN CORPUS HGB CONC 31.2 g/dL (32.0-36.0); MEAN CORPUSCULAR HEMOGLOB 29.7 pg (26.0-34.0); MEAN CORPUSCULAR VOLUME 95.2 fL (80-100); MEAN PLATELET VOLUME 11.6 fL (9.2-13.0); MONOCYTES 6.8 %; MONOCYTES ABSOLUTE 0.61 10/3/uL (0.21-1.20); NEUTROPHILS 76.3 %; NEUTROPHILS ABSOLUTE 6.81 10/3/uL (2.02-8.40); PLATELET COUNT 220 10/3/uL (150-400); RBC DISTRIBUTION WIDTH 20.1 % (12.0-16.0); RED CELL COUNT 2.29 10/6/uL (4.7-6.1); WHITE BLOOD CELLS 8.9 10/3/uL (4.5-10.5)
[2016-10-29 03:57] LABS: HEMOGLOBIN 6.8 g/dL (13.6-17.8); MANUAL DIFF NO %
[2016-10-29 04:03] LABS: INTERNATIONAL NORMAL RATI 1.8 UNITS (-); PROTIME (NOT ORD) 20.5 SEC (12.0-14.5)
[2016-10-29 04:07] LABS: ALBUMIN 1.7 G/DL (3.5-5.0); BUN (BLOOD UREA NITROGEN) 17 MG/DL (6-23); CHLORIDE, SERUM 109 MMOL/L (96-112); CO2 (CARBON DIOXIDE) 23 MMOL/L (24-34); CREATININE 0.83 MG/DL (0.70-1.30); GFR AFRICAN AMERICAN 100 ML/MIN (>=60); GFR NON AFRICAN AMERICAN 87 ML/MIN (>=60); PHOSPHORUS, SERUM 2.3 MG/DL (2.5-4.5); POTASSIUM, SERUM 3.7 MMOL/L (3.5-5.3); SODIUM, SERUM 143 MMOL/L (135-148)
[2016-10-29 04:08] LABS: GLUCOSE, SERUM 162 MG/DL (60-99)
[2016-10-30 05:34] LABS: BUN (BLOOD UREA NITROGEN) 15 MG/DL (6-23); CALCIUM, SERUM 8.3 MG/DL (8.5-10.4); CHLORIDE, SERUM 112 MMOL/L (96-112); CO2 (CARBON DIOXIDE) 23 MMOL/L (24-34); CREATININE 0.77 MG/DL (0.70-1.30); GFR AFRICAN AMERICAN 104 ML/MIN (>=60); GFR NON AFRICAN AMERICAN 89 ML/MIN (>=60); GLUCOSE, SERUM 175 MG/DL (60-99); PHOSPHORUS, SERUM 2.4 MG/DL (2.5-4.5); POTASSIUM, SERUM 4.3 MMOL/L (3.5-5.3); SODIUM, SERUM 144 MMOL/L (135-148)
[2016-10-30 05:38] LABS: INTERNATIONAL NORMAL RATI 1.7 UNITS (-); PROTIME (NOT ORD) 19.8 SEC (12.0-14.5)
[2016-10-30 05:40] LABS: BASOPHILS 0.4 %; BASOPHILS ABSOLUTE 0.03 10/3/uL (0.0-0.16); EOSINOPHILS 4.4 %; EOSINOPHILS ABSOLUTE 0.32 10/3/uL (0.0-0.53); HEMATOCRIT 23.9 % (40.0-51.0); HEMOGLOBIN 7.4 g/dL (13.6-17.8); IMMATURE GRANULOCYTES 0.1 %; IMMATURE GRANULOCYTES ABSOLUTE 0.01 10/3/uL (0.0-0.11); LYMPHOCYTES 14.9 %; LYMPHOCYTES ABSOLUTE 1.07 10/3/uL (0.67-4.30); MEAN CORPUSCULAR HEMOGLOB 29.1 pg (26.0-34.0); MEAN CORPUSCULAR VOLUME 94.1 fL (80-100); MEAN PLATELET VOLUME 11.3 fL (9.2-13.0); MONOCYTES 8.1 %; MONOCYTES ABSOLUTE 0.58 10/3/uL (0.21-1.20); NEUTROPHILS 72.1 %; NEUTROPHILS ABSOLUTE 5.19 10/3/uL (2.02-8.40); PLATELET COUNT 195 10/3/uL (150-400); RED CELL COUNT 2.54 10/6/uL (4.7-6.1); WHITE BLOOD CELLS 7.2 10/3/uL (4.5-10.5)
[2016-10-30 05:44] LABS: MANUAL DIFF NO %
[2016-10-31 05:19] LABS: BASOPHILS 0.4 %; BASOPHILS ABSOLUTE 0.04 10/3/uL (0.0-0.16); EOSINOPHILS 3.1 %; EOSINOPHILS ABSOLUTE 0.29 10/3/uL (0.0-0.53); HEMATOCRIT 25.6 % (40.0-51.0); HEMOGLOBIN 8.1 g/dL (13.6-17.8); IMMATURE GRANULOCYTES 0.3 %; IMMATURE GRANULOCYTES ABSOLUTE 0.03 10/3/uL (0.0-0.11); LYMPHOCYTES 14.4 %; LYMPHOCYTES ABSOLUTE 1.33 10/3/uL (0.67-4.30); MEAN CORPUS HGB CONC 31.6 g/dL (32.0-36.0); MEAN CORPUSCULAR HEMOGLOB 29.6 pg (26.0-34.0); MEAN CORPUSCULAR VOLUME 93.4 fL (80-100); MEAN PLATELET VOLUME 11.2 fL (9.2-13.0); MONOCYTES 6.3 %; MONOCYTES ABSOLUTE 0.58 10/3/uL (0.21-1.20); NEUTROPHILS 75.5 %; NEUTROPHILS ABSOLUTE 6.96 10/3/uL (2.02-8.40); PLATELET COUNT 214 10/3/uL (150-400); RBC DISTRIBUTION WIDTH 19.5 % (12.0-16.0); RED CELL COUNT 2.74 10/6/uL (4.7-6.1); WHITE BLOOD CELLS 9.2 10/3/uL (4.5-10.5)
[2016-10-31 05:21] LABS: MANUAL DIFF NO %
[2016-10-31 05:25] LABS: INTERNATIONAL NORMAL RATI 1.6 UNITS (-); PROTIME (NOT ORD) 19.1 SEC (12.0-14.5)
[2016-10-31 05:30] LABS: BUN (BLOOD UREA NITROGEN) 13 MG/DL (6-23); CALCIUM, SERUM 8.6 MG/DL (8.5-10.4); CHLORIDE, SERUM 109 MMOL/L (96-112); CO2 (CARBON DIOXIDE) 24 MMOL/L (24-34); CREATININE 0.68 MG/DL (0.70-1.30); GFR AFRICAN AMERICAN 109 ML/MIN (>=60); GFR NON AFRICAN AMERICAN 94 ML/MIN (>=60); GLUCOSE, SERUM 152 MG/DL (60-99); PHOSPHORUS, SERUM 2.1 MG/DL (2.5-4.5); SODIUM, SERUM 143 MMOL/L (135-148); VANCOMYCIN TROUGH 13.7 MCG/ML (10.0-20.0)
[2016-11-01 04:29] LABS: BASOPHILS 0.4 %; BASOPHILS ABSOLUTE 0.03 10/3/uL (0.0-0.16); EOSINOPHILS 3.5 %; EOSINOPHILS ABSOLUTE 0.25 10/3/uL (0.0-0.53); HEMOGLOBIN 7.3 g/dL (13.6-17.8); IMMATURE GRANULOCYTES 0.3 %; IMMATURE GRANULOCYTES ABSOLUTE 0.02 10/3/uL (0.0-0.11); LYMPHOCYTES 19.4 %; LYMPHOCYTES ABSOLUTE 1.39 10/3/uL (0.67-4.30); MEAN CORPUS HGB CONC 31.7 g/dL (32.0-36.0); MEAN CORPUSCULAR VOLUME 94.7 fL (80-100); MONOCYTES 5.9 %; MONOCYTES ABSOLUTE 0.42 10/3/uL (0.21-1.20); NEUTROPHILS 70.5 %; NEUTROPHILS ABSOLUTE 5.06 10/3/uL (2.02-8.40); PLATELET COUNT 172 10/3/uL (150-400); RBC DISTRIBUTION WIDTH 19.3 % (12.0-16.0); RED CELL COUNT 2.43 10/6/uL (4.7-6.1); WHITE BLOOD CELLS 7.2 10/3/uL (4.5-10.5)
[2016-11-01 04:30] LABS: MANUAL DIFF NO %
[2016-11-01 04:33] LABS: INTERNATIONAL NORMAL RATI 1.7 UNITS (-); PROTIME (NOT ORD) 19.9 SEC (12.0-14.5)
[2016-11-01 04:47] LABS: A/G RATIO 0.3 (0.7-1.9); ALBUMIN 1.7 G/DL (3.5-5.0); BUN (BLOOD UREA NITROGEN) 13 MG/DL (6-23); CALCIUM, SERUM 8.3 MG/DL (8.5-10.4); CHLORIDE, SERUM 110 MMOL/L (96-112); CO2 (CARBON DIOXIDE) 25 MMOL/L (24-34); CREATININE 0.72 MG/DL (0.70-1.30); GFR AFRICAN AMERICAN 107 ML/MIN (>=60); GFR NON AFRICAN AMERICAN 92 ML/MIN (>=60); GLOBULIN 4.9 G/DL (2.5-4.1); GLUCOSE, SERUM 166 MG/DL (60-99); PHOSPHORUS, SERUM 2.3 MG/DL (2.5-4.5); POTASSIUM, SERUM 4.2 MMOL/L (3.5-5.3); PREALBUMIN 6.4 MG/DL (17.0-43.0); SGOT(AST) 27 U/L (5-40); SGPT(ALT) 21 U/L (5-65); SODIUM, SERUM 143 MMOL/L (135-148); TOTAL BILIRUBIN 0.6 MG/DL (0-1.2); TOTAL PROTEIN 6.6 G/DL (6.0-8.5)
[2016-11-01 04:50] LABS: ALKALINE PHOSPHATASE 136 U/L (45-117)
[2016-11-02 05:21] LABS: BASOPHILS 0.5 %; BASOPHILS ABSOLUTE 0.03 10/3/uL (0.0-0.16); EOSINOPHILS 5.9 %; EOSINOPHILS ABSOLUTE 0.38 10/3/uL (0.0-0.53); HEMATOCRIT 23.8 % (40.0-51.0); HEMOGLOBIN 7.4 g/dL (13.6-17.8); IMMATURE GRANULOCYTES 0.5 %; IMMATURE GRANULOCYTES ABSOLUTE 0.03 10/3/uL (0.0-0.11); LYMPHOCYTES 21.7 %; MEAN CORPUS HGB CONC 31.1 g/dL (32.0-36.0); MEAN CORPUSCULAR HEMOGLOB 29.4 pg (26.0-34.0); MEAN CORPUSCULAR VOLUME 94.4 fL (80-100); MEAN PLATELET VOLUME 11.2 fL (9.2-13.0); MONOCYTES 6.3 %; MONOCYTES ABSOLUTE 0.41 10/3/uL (0.21-1.20); NEUTROPHILS 65.1 %; NEUTROPHILS ABSOLUTE 4.21 10/3/uL (2.02-8.40); PLATELET COUNT 165 10/3/uL (150-400); RBC DISTRIBUTION WIDTH 19.3 % (12.0-16.0); RED CELL COUNT 2.52 10/6/uL (4.7-6.1); WHITE BLOOD CELLS 6.5 10/3/uL (4.5-10.5)
[2016-11-02 05:22] LABS: MANUAL DIFF NO %
[2016-11-02 05:28] LABS: BUN (BLOOD UREA NITROGEN) 15 MG/DL (6-23); CALCIUM, SERUM 7.9 MG/DL (8.5-10.4); CHLORIDE, SERUM 110 MMOL/L (96-112); CO2 (CARBON DIOXIDE) 26 MMOL/L (24-34); CREATININE 0.69 MG/DL (0.70-1.30); GFR AFRICAN AMERICAN 108 ML/MIN (>=60); GFR NON AFRICAN AMERICAN 94 ML/MIN (>=60); GLUCOSE, SERUM 140 MG/DL (60-99); PHOSPHORUS, SERUM 2.8 MG/DL (2.5-4.5); POTASSIUM, SERUM 4.2 MMOL/L (3.5-5.3); SODIUM, SERUM 142 MMOL/L (135-148)
[2016-11-02 07:07] LABS: INTERNATIONAL NORMAL RATI 1.8 UNITS (-)
[2016-11-03 04:46] LABS: BASOPHILS 0.5 %; BASOPHILS ABSOLUTE 0.04 10/3/uL (0.0-0.16); EOSINOPHILS 4.7 %; EOSINOPHILS ABSOLUTE 0.36 10/3/uL (0.0-0.53); HEMATOCRIT 24.7 % (40.0-51.0); HEMOGLOBIN 7.7 g/dL (13.6-17.8); IMMATURE GRANULOCYTES 0.5 %; IMMATURE GRANULOCYTES ABSOLUTE 0.04 10/3/uL (0.0-0.11); LYMPHOCYTES 21.3 %; LYMPHOCYTES ABSOLUTE 1.64 10/3/uL (0.67-4.30); MEAN CORPUS HGB CONC 31.2 g/dL (32.0-36.0); MEAN CORPUSCULAR HEMOGLOB 29.6 pg (26.0-34.0); MEAN PLATELET VOLUME 10.7 fL (9.2-13.0); MONOCYTES 6.6 %; MONOCYTES ABSOLUTE 0.51 10/3/uL (0.21-1.20); NEUTROPHILS 66.4 %; PLATELET COUNT 177 10/3/uL (150-400); RBC DISTRIBUTION WIDTH 19.3 % (12.0-16.0); WHITE BLOOD CELLS 7.7 10/3/uL (4.5-10.5)
[2016-11-03 04:47] LABS: MANUAL DIFF NO %
[2016-11-03 04:48] LABS: INTERNATIONAL NORMAL RATI 1.8 UNITS (-); PROTIME (NOT ORD) 20.5 SEC (12.0-14.5)
[2016-11-03 05:13] LABS: BUN (BLOOD UREA NITROGEN) 16 MG/DL (6-23); CALCIUM, SERUM 8.2 MG/DL (8.5-10.4); CHLORIDE, SERUM 109 MMOL/L (96-112); CO2 (CARBON DIOXIDE) 24 MMOL/L (24-34); CREATININE 0.65 MG/DL (0.70-1.30); GFR AFRICAN AMERICAN 111 ML/MIN (>=60); GFR NON AFRICAN AMERICAN 96 ML/MIN (>=60); GLUCOSE, SERUM 138 MG/DL (60-99); PHOSPHORUS, SERUM 2.3 MG/DL (2.5-4.5); SODIUM, SERUM 142 MMOL/L (135-148)
[2016-11-04 04:55] LABS: BASOPHILS 0.5 %; BASOPHILS ABSOLUTE 0.04 10/3/uL (0.0-0.16); EOSINOPHILS 3.8 %; EOSINOPHILS ABSOLUTE 0.32 10/3/uL (0.0-0.53); HEMATOCRIT 23.7 % (40.0-51.0); HEMOGLOBIN 7.4 g/dL (13.6-17.8); IMMATURE GRANULOCYTES 0.4 %; IMMATURE GRANULOCYTES ABSOLUTE 0.03 10/3/uL (0.0-0.11); INTERNATIONAL NORMAL RATI 2.2 UNITS (-); LYMPHOCYTES ABSOLUTE 1.43 10/3/uL (0.67-4.30); MEAN CORPUS HGB CONC 31.2 g/dL (32.0-36.0); MEAN CORPUSCULAR HEMOGLOB 29.5 pg (26.0-34.0); MEAN CORPUSCULAR VOLUME 94.4 fL (80-100); MEAN PLATELET VOLUME 11.4 fL (9.2-13.0); MONOCYTES 7.4 %; MONOCYTES ABSOLUTE 0.62 10/3/uL (0.21-1.20); NEUTROPHILS 70.9 %; NEUTROPHILS ABSOLUTE 5.97 10/3/uL (2.02-8.40); PLATELET COUNT 169 10/3/uL (150-400); RBC DISTRIBUTION WIDTH 19.3 % (12.0-16.0); RED CELL COUNT 2.51 10/6/uL (4.7-6.1); WHITE BLOOD CELLS 8.4 10/3/uL (4.5-10.5)
[2016-11-04 04:56] LABS: MANUAL DIFF NO %
[2016-11-04 05:04] LABS: BUN (BLOOD UREA NITROGEN) 14 MG/DL (6-23); CHLORIDE, SERUM 107 MMOL/L (96-112); CO2 (CARBON DIOXIDE) 23 MMOL/L (24-34); CREATININE 0.62 MG/DL (0.70-1.30); GFR AFRICAN AMERICAN 113 ML/MIN (>=60); GFR NON AFRICAN AMERICAN 98 ML/MIN (>=60); GLUCOSE, SERUM 123 MG/DL (60-99); PHOSPHORUS, SERUM 2.3 MG/DL (2.5-4.5); SODIUM, SERUM 140 MMOL/L (135-148)
== END 2016-11-04 16:27 | DRG 4 ==
LOC: ER 23:15 → ER/OF 09-29 02:56 → MIC 09-29 14:00 → 4SO 09-30 15:58 → MIC 10-02 03:15 → IMCU 11-01 18:34
PROVIDERS: Internal Medicine; Internal Medicine Critical Care Medicine; Internal Medicine Gastroenterology; Internal Medicine Pulmonary Disease; Nurse Practitioner Acute Care; Nurse Practitioner Family; Orthopaedic Surgery; Radiology Radiation Oncology; Specialist
PROC: 30233K1 Transfusion of Nonautologous Frozen Plasma into Peripheral Vein, Percutaneous Approach (ICD-10-PCS; 2016-09-29)
PROC: 30233N1 Transfusion of Nonautologous Red Blood Cells into Peripheral Vein, Percutaneous Approach (ICD-10-PCS; 2016-09-29)
PROC: 0DB68ZX Excision of Stomach, Via Natural or Artificial Opening Endoscopic, Diagnostic (ICD-10-PCS; principal; 2016-09-30 10:03)
PROC: 5A1945Z Respiratory Ventilation, 24-96 Consecutive Hours (ICD-10-PCS; 2016-10-05)
PROC: 5A1955Z Respiratory Ventilation, Greater than 96 Consecutive Hours (ICD-10-PCS; 2016-10-05)
PROC: 0BH17EZ Insertion of Endotracheal Airway into Trachea, Via Natural or Artificial Opening (ICD-10-PCS; 2016-10-05)
PROC: 0BJ08ZZ Inspection of Tracheobronchial Tree, Via Natural or Artificial Opening Endoscopic (ICD-10-PCS; 2016-10-05)
PROC: 0B110F4 Bypass Trachea to Cutaneous with Tracheostomy Device, Open Approach (ICD-10-PCS; 2016-10-14)
PROC: 5A1945Z Respiratory Ventilation, 24-96 Consecutive Hours (ICD-10-PCS; 2016-10-15)
PROC: 0BH17EZ Insertion of Endotracheal Airway into Trachea, Via Natural or Artificial Opening (ICD-10-PCS; 2016-10-15)
PROC: 4A02X4A Measurement of Cardiac Electrical Activity, Guidance, External Approach (ICD-10-PCS; 2016-10-28)
PROC: 02HV33Z Insertion of Infusion Device into Superior Vena Cava, Percutaneous Approach (ICD-10-PCS; 2016-10-28)
DX: K25.4 Chronic or unspecified gastric ulcer with hemorrhage (principal); I63.9 Cerebral infarction, unspecified; G93.40 Encephalopathy, unspecified; J18.9 Pneumonia, unspecified organism; J44.9 Chronic obstructive pulmonary disease, unspecified; I48.2 Chronic atrial fibrillation; K70.30 Alcoholic cirrhosis of liver without ascites; N18.3 Chronic kidney disease, stage 3 (moderate); J96.01 Acute respiratory failure with hypoxia; D62 Acute posthemorrhagic anemia; G81.91 Hemiplegia, unspecified affecting right dominant side; S42.201K Unspecified fracture of upper end of right humerus, subsequent encounter for fracture with nonunion; F10.10 Alcohol abuse, uncomplicated; I12.9 Hypertensive chronic kidney disease with stage 1 through stage 4 chronic kidney disease, or unspecified chronic kidney disease; E03.9 Hypothyroidism, unspecified; N40.1 Benign prostatic hyperplasia with lower urinary tract symptoms; F17.210 Nicotine dependence, cigarettes, uncomplicated; E11.9 Type 2 diabetes mellitus without complications; Z87.440 Personal history of urinary (tract) infections; Z23 Encounter for immunization
CPT/HCPCS: 31500; 31720; 36415; 36430; 36569; 36600; 70450; 70551; 71010; 71275; 73060-LT; 73060-RT; 73562-RT; 74000; 74176; 80048; 80053; 80061; 80069; 80076; 80202; 81001; 82140; 82272; 82306; 82330; 82533; 82550; 82553; 82607; 82746; 82803; 82805; 82947; 82962; 83036; 83605; 83735; 84100; 84132; 84134; 84145; 84295; 84439; 84443; 84484; 84550; 85014; 85018; 85025; 85610; 85730; 86850; 86900; 86901; 86920; 87015; 87040; 87070; 87075; 87077; 87086; 87102; 87116; 87186; 87205; 87493; 87493-59; 87641; 88305; 88342; 89051; 89060; 90662; 92610-GN; 93005; 93880; 94002; 94003; 94640; 94660; 95816; 96374; 96375; 97110-GP; 97163-GP; 97164-GP; 97530-GP; 99285; A9270-GY; C1751; C1894; C8929; C9113; G0008; G0480; J0153; J0282; J0360; J0690; J1630; J1940; J2405; J2543; J2710; J3010; J3370; J3411; J3430; P9016; P9047; P9059; Q9957; Q9967

== ENCOUNTER 2016-11-10 16:15 | Inpatient (IN) | payer BC ==
--- NOTE | ~2016-11-10 | HP ---
History And Physical [place] [address] [facility] [place]. [address] NAME: FABIANA SPENCER : 42 STATUS : ADM IN PAT#: [id number] AGE: 76 ADM/REG DATE : 11/10/16 MR#: [id number] REPORT SERV DATE: 11/11/16 DICTATED BY: NOHELIA LOPEZ DATE: 11/10/16 REPORT STATUS : Draft TRANSCRIBED BY: MODL DATE: 11/10/16 DATE OF ADMISSION: 11/10/2016 CHIEF COMPLAINT: A 76-year-old male with no known primary care physician, now being transferred from [facility] with ventilator associated pneumonia. HISTORY OF PRESENTING ILLNESS: The patient's history was obtained through careful interview with the patient, coupled with review of [facility] medical records and medical records obtained from [facility]. The patient early in 2016 had presented with ventilator associated pneumonia and had been hospitalized in Intensive Care Unit. He was stabilized sufficiently to be transferred to [facility] where he has been rehabilitating on IV Zosyn. Unfortunately, over the last week or so, he has had increasing subjective shortness of breath even on the ventilator and increasing thick yellow secretions with cough. There has been no reported fevers or chills. No nausea or vomiting, but he has developed diarrhea, and for this reason, I placed a rectal tube. He also has a chronic Shi catheter and a chronic PEG tube. There have been no reports of confusion. The patient denies any pain except for in his upper abdomen and lower chest area and the middle area as he points to it. He is unable to describe the precise quality of it as he has difficulty with communication, but he does rate it as a 6/10 severity. He specifically denies any headache, back pain, or other chest pain. REVIEW OF SYSTEMS: Otherwise, a 14-point review of systems was obtained and was negative, although patient in general is only able to answer yes and no questions on review of systems and sometimes I question the validity as he seems a bit irritated or even slightly confused with questioning at times. PAST MEDICAL HISTORY: 1. Chronic ventilator dependence with chronic respiratory failure. 2. COPD. 3. 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 He is bed- bound now. 4. Diabetes. 5. Atrial fibrillation status post cardiac ablation and cardioversion. 6. 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 7. 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 8. Asbestosis with granulomatous lung disease. 9. Lupus in the past. History And Physical [address] [address] NAME: FABIANA SPENCER : 42 STATUS : ADM IN PAT#: [id number] AGE: 76 ADM/REG DATE : 11/10/16 MR#: [id number] REPORT SERV DATE: 11/11/16 DICTATED BY: NOHELIA LOPEZ DATE: 11/10/16 REPORT STATUS : Draft TRANSCRIBED BY: MODNicola DATE: 11/10/16 10.Recurrent pneumonia. 11.Polio as a child. 12.Urinary tract infections. 13.Neuropathy. 14.Previous pneumothorax. 15.Benign prostatic hypertrophy. 16.PEG tube placement. 17.MRSA and Pseudomonas infections. 18.Chronic anemia. 19.Right knee effusion, seen by Dr. Pineda. 20.GI bleed with Tania-Camacho tear and colon polyps, seen by Dr. Verduzco. 21.Right humerus fracture, nonsurgical. 22.Hypothyroidism. PAST SURGICAL HISTORY: 1. Cardiac ablation. 2. Lumbar spine surgery, seen by Dr. Alejandre. 3. Perineal mass that was benign. 4. TURP by Dr. Corcoran. 5. PEG tube placement. 6. Esophageal rupture repair. 7. Knee surgery. ALLERGIES: NO KNOWN DRUG ALLERGIES. SOCIAL HISTORY: Quit smoking about three years ago, at least cigarettes, but even up until the last several months, he had been smoking occasional cigars. He does have a heavy history of alcohol abuse, and until he became disabled, he was drinking a significant amount of vodka moonshine and other liquors. He became a about 6 to 10 years ago from his recollection. He has three sons, but they apparently do not live locally. 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 He has asbestos exposure apparently. FAMILY HISTORY: Father with heart disease. Strong family history of Alzheimer dementia. CURRENT MEDICATIONS: Include Tylenol, albuterol, amiodarone 200 mg p.o. b.i.d., Lipitor 80 mg at bedtime, Coreg 25 mg twice a day, Peridex rinse twice a day, sliding-scale insulin, Levemir 5 units subcutaneous twice a day, Synthroid 50 mcg at breakfast, melatonin 3 mg at bedtime, morphine p.r.n., Zosyn 3.375 g IV q.6, Seroquel 50 mg twice a day, sodium bicarbonate as needed, zinc oxide, Prevacid, pancrelipase, Zofran p.r.n., hydralazine p.r.n., and Haldol p.r.n. PHYSICAL EXAMINATION: VITAL SIGNS: Temperature 99.5, pulse 82, blood pressure 168/83, respiratory rate 33, and O2 saturation 99% on 5 L of oxygen via vent. GENERAL: Chronically disabled male, but in no evidence of acute distress at this time, although he admits that he is uncomfortable on the ventilator because of shortness of breath and cough. History And Physical [address] [place]. [address] NAME: FABIANA SPENCER : 44 STATUS : ADM IN [facility]#: [id number] AGE: 76 ADM/REG DATE : 11/10/16 MR#: [id number] REPORT SERV DATE: 11/11/16 DICTATED BY: NOHELIA LOPEZ DATE: 11/10/16 REPORT STATUS : Draft TRANSCRIBED BY: JORDAN DATE: 11/10/16 HEENT: Pupils equal, round, and reactive to light. No conjunctival pallor. No scleral icterus. Nares are patent. Oropharynx is clear of obstruction. Moist mucous membranes. NECK: Trachea midline. No thyromegaly. He has a stable appearing tracheostomy with ventilator attached. LYMPH: No cervical lymphadenopathy. No supraclavicular lymphadenopathy. No inguinal lymphadenopathy. RESPIRATORY: The patient has scattered rhonchi that predominates examination. Very harsh upper respiratory rhonchi on exam. No wheezes though, no rales. It is difficult to appreciate egophony as the patient is unable to vocalize appropriately. He has a labored respiratory effort even on the ventilator. CARDIOVASCULAR: Regular rate and rhythm. No murmurs, rubs, or gallops. No extremity edema is appreciated. ABDOMEN: Soft, nontender, nondistended. Normal bowel sounds auscultated throughout. PEG tube in good condition. No hepatosplenomegaly is appreciated. DERMATOLOGICAL: Warm and dry extremities. No pallor. No cyanosis. PSYCHIATRIC: Seemingly frustrated affect and mood. Alert and oriented x3. LABORATORY DATA: White blood cell count 16.3, hemoglobin 7.5, hematocrit 23.6, and platelets 222. Sodium 138, potassium 4.3, chloride 103, bicarb 26, BUN 23, creatinine 0.7, and glucose 91. Lactic acid 0.8. Urinalysis shows large leukocyte esterase, 36 white blood cells. ABG demonstrates a pH of 7.49, a PaCO2 of 33, a PaO2 of 79, and a bicarb of 24. STUDIES: Chest x-ray by my own evaluation shows diffuse patchy lung disease possibly from chronic interstitial lung disease with overlying pneumonia but also dense increasing left lower lung pneumonia compared to old x-ray. ASSESSMENT AND PLAN: 1. Ventilator and facility acquired pneumonia. There are reports of some kind of "super bug" from [facility] (?). We will obtain Infectious Disease consult. We will place on precautions, check blood cultures, check sputum suction cultures. Place on IV cefepime, IV vancomycin for history of Pseudomonas and MRSA. 2. Sepsis with tachypnea. White blood cell count of 16.3 and evidence of pneumonia. Check blood cultures. Place on IV antibiotics. 3. Chronic obstructive pulmonary disease. Place on DuoNeb nebulizers. Obtain a Pulmonary consult. 4. Asbestosis with chronic interstitial lung disease. 5. Late effects of stroke with right hemiparesis, dysphagia, and disability. 6. Anemia, chronic, stable. Consider palliative transfusion (?). KPL/MODL Nohelia Lopez M.D. / [id number] History And Physical [address] [address] NAME: FABIANA SPENCER : 42 STATUS : ADM IN [facility]#: [id number] AGE: 76 ADM/REG DATE : 11/10/16 MR#: [id number] REPORT SERV DATE: 11/11/16 DICTATED BY: NOHELIA LOPEZ DATE: 11/10/16 REPORT STATUS : Draft TRANSCRIBED BY: MODL DATE: 11/10/16 CC: Isaac Euceda M.D.
--- NOTE | ~2016-11-10 | CN ---
Consultation Report [facility] [address] [place]. [address] NAME: FABIANA SPENCER : 42 STATUS : ADM IN [facility]#: [id number] AGE: 76 ADM/REG DATE : 11/10/16 MR#: [id number] REPORT SERV DATE: 11/11/16 DICTATED BY: MARSHALL GARDNER DATE: 11/11/16 REPORT STATUS : Draft TRANSCRIBED BY: MODL DATE: 11/11/16 CONSULTATION DATE OF CONSULTATION: HISTORY OF PRESENT ILLNESS: This is a 76-year-old white male, who was recently hospitalized at our facility for very prolonged stay, who comes from [facility] for concerns of pneumonia and left lung atelectasis. There have been no reported fevers or chills, but he does have a whiteout of his left lung on today's chest x-ray. However, no peak airway pressures on the ventilator. There is some sensation of shortness of breath and increased secretions. He does have a trach and is chronically on the ventilator. He had a tracheostomy placed 10/21/[address] Art Davenport. Last admission, he had issues of significant GI bleed related to gastric ulcer. He also had a PEG tube placed last admission as well. Apparently, he had significant issues with respiratory infection by multiple different agents, which included Haemophilus influenzae, MRSA, Streptococcus agalactiae, Pseudomonas. He does have a leukocytosis on admission, but lactate was negative, and procalcitonin was low. REVIEW OF SYSTEMS: Unable to be obtained. PAST MEDICAL HISTORY: Type 2 diabetes, alcohol abuse, atrial fibrillation, hypertension, history of UTI, pneumonia, hypothyroidism, neuropathy, COPD, remote pneumothorax, carpal tunnel release, BPH, history of Tania-Camacho tear, chronic kidney disease, low back surgery, stroke, polio as a child, right humerus fracture treated nonsurgically, cardiac ablation, TURP, knee surgery, esophageal rupture repair, PEG tube, tracheostomy. ALLERGIES: NO KNOWN DRUG ALLERGIES. OUTPATIENT MEDICATIONS: Reviewed. SOCIAL HISTORY: Former smoker. Does have a heavy history of alcohol abuse. Currently, residing at [facility]. He does have apparently three sons, where they do not live locally and his has . Asbestos exposure. FAMILY HISTORY: Father, heart disease. PHYSICAL EXAMINATION: VITAL SIGNS: Per nursing flow sheet. GENERAL: No acute distress, awake. HEENT: Normocephalic, atraumatic. NECK: Trachea midline. Tracheostomy in place. HEART: Regular rate and rhythm. No murmurs. LUNGS: Decreased breath sounds left side. No wheezes. Ventilator settings reviewed. Consultation Report [place] [address] [place]. [address] NAME: FABIANA SPENCER : 44 STATUS : ADM IN PAT#: [id number] AGE: 76 ADM/REG DATE : 11/10/16 MR#: [id number] REPORT SERV DATE: 11/11/16 DICTATED BY: MARSHALL GARDNER DATE: 11/11/16 REPORT STATUS : Draft TRANSCRIBED BY: MODL DATE: 11/11/16 GI: PEG tube placed. Soft, nontender, nondistended. EXTREMITIES: No significant edema. There is a rectal tube in place. IMAGING: I was able to look at one of the chest x-ray films in my office from today that showed complete left lung atelectasis compared to the prior x-ray, likely related to mucus. I was not able to pull up old films, when I went to see him in the hospital due to dysfunction with our PAC system. LABORATORY DATA: Reviewed. ASSESSMENT AND PLAN: 1. Left lung atelectasis. 2. Possible mucous plugging. 3. Possible pneumonia. 4. Ventilator dependent respiratory failure. 5. Chronic obstructive pulmonary disease. 6. History of stroke. 7. Atrial fibrillation and diabetes. I agree with broad-spectrum antibiotics for now. Hopefully, we will consolidate as needed. Currently, on bronchodilators. We will plan bronchoscopy today. Ventilator settings reviewed and we will follow this as well. CEP/MODL Marshall Gardner DO / [id number] CC: Isaac Euceda M.D.
--- NOTE | ~2016-11-10 | OP ---
Record Of Operation [facility] [address] [place]. [address] NAME: FABIANA SPENCER : 44 STATUS : ADM IN PAT#: [id number] AGE: 76 ADM/REG DATE : 11/10/16 MR#: [id number] REPORT SERV DATE: 11/11/16 DICTATED BY: MARSHALL GARDNER DATE: 11/11/16 REPORT STATUS : Draft TRANSCRIBED BY: MODL DATE: 11/11/16 DATE OF PROCEDURE: 11/11/2016 PREPROCEDURE DIAGNOSIS: Left lung atelectasis and mucus plug. POSTPROCEDURE DIAGNOSIS: Left lung atelectasis and mucus plug. DESCRIPTION: Informed consent was obtained prior to procedure. Bronchoscopy was performed in the [facility] bed 4. Patient was already on the ventilator via his tracheostomy. We sedated him with propofol with IV pushes and IV drip. His vitals were monitored every two minutes. We started out with a disposable scope, but had to abandon that because of poor suction and poor visualization. Switched over to traditional bronchoscopy cart with adult scope. We inserted the scope in through the tracheostomy to visualize the middle and lower portions of the trachea, which were normal, however, he could already see thick copious secretions at the logan and going into both the left and right mainstem bronchi. A trap was hooked up to the bronchoscope at the start of the procedure and copious amounts of normal saline were injected into the airways to help loosen up the secretions for suctioning. We suctioned back starting at the logan and the left and right mainstem bronchi. I then further suctioned into the left lung until all segments of the left upper lobe lingula and left lower lobe were open and easily visible. There was some significant inflammation in the lingular region that had some easy bleeding with suctioning, but that was very minimal in nature. It is just sort of telling us that the airways were very inflamed. We also suctioned out the right lung as well, but the secretions in this lung were much less compared to the left side. By the end of the procedure, all segments of both lungs were open and all secretions were suctioned. There was no identification of any endobronchial lesion or mass. No significant blood loss. The patient tolerated procedure well. The patient will get a chest x-ray after procedure and we will stop the sedation. CEP/MODL Marshall Gardner DO / [id number] CC: Isaac Euceda M.D.
--- NOTE | ~2016-11-10 | CN ---
Consultation Report [facility] [address] [place]. [address] NAME: FABIANA SPENCER : 44 STATUS : ADM IN [facility]#: [id number] AGE: 76 ADM/REG DATE : 11/10/16 MR#: [id number] REPORT SERV DATE: 11/11/16 DICTATED BY: SUNI ALONSO DATE: 11/11/16 REPORT STATUS : Draft TRANSCRIBED BY: MODL DATE: 11/11/16 INFECTIOUS DISEASE CONSULT DATE OF CONSULTATION: REASON FOR REFERRAL: Evaluation and treatment of possible healthcare-associated pneumonia. HISTORY OF PRESENT ILLNESS: The patient is a 76-year-old male with history of diabetes mellitus, chronic obstructive pulmonary disease, atrial fibrillation, cirrhosis, and interstitial lung disease. He was admitted to [facility] on 10/01 with several days of increasing weakness, nausea, vomiting, and increased shortness of breath. He developed respiratory failure shortly after admission, was intubated and placed on the ventilator. He had a variety of complications after that with waxing and waning renal function and multiple infections per the record. There were past cultures during that hospital stay from his trachea that grew Haemophilus influenzae, methicillin-resistant Staph aureus, group B strep. He also had positive cultures of E coli in his urine and a central line that grew Staph epi and later a Pseudomonas from the tracheal aspirate. He was treated with a variety of antibiotics, eventually stabilized, and sent to [place] just over a week ago. He was noted to have increased difficulty ventilating over the last couple of days there and imaging revealed total whiteout of his left chest. He had no fever. He did have a rise in his white count without a left shift. He was transferred here to be evaluated by Pulmonary. He had a procalcitonin less than 1. He was started empirically on vancomycin, cefepime, and tobramycin. Cultures of his blood thus far are negative. Tracheal aspirate shows moderate white cells, some epithelial cells, and only a few gram-positive rods on the Gram stain. Cultures now are pending. He underwent bronchoscopy today with findings of a mucous plug and a followup chest x-ray after that does show some reventilation of that left lung. PAST MEDICAL HISTORY: Otherwise unremarkable. MEDICATIONS: As mentioned above. ALLERGIES: HE HAS NO KNOWN ANTIMICROBIAL ALLERGIES. SOCIAL HISTORY: He has been debilitated in the hospital for some time now. He was apparently living independently with family prior to that. He has a history of smoking. No history of alcohol or substance abuse. FAMILY HISTORY: Noncontributory. PHYSICAL EXAMINATION: GENERAL: Chronically ill-appearing, elderly, male, lying quietly in bed. He is on the ventilator, unable to speak, but does wake up and does seem to have somewhat of a flat affect. He does answer simple yes and no questions with nods and shakes of his head. VITAL SIGNS: His temperature has been normal since arrival, 99.1 at present with a pulse of Consultation Report [facility] [address] [place]. [address] NAME: FABIANA SPENCER : 44 STATUS : ADM IN [facility]#: [id number] AGE: 76 ADM/REG DATE : 11/10/16 MR#: [id number] REPORT SERV DATE: 11/11/16 DICTATED BY: SUNI ALONSO DATE: 11/11/16 REPORT STATUS : Draft TRANSCRIBED BY: JORDAN DATE: 11/11/16 70, respirations 22, blood pressure 135/65, weight 104 kg. HEENT: Sclerae are clear. Trach site looks okay. LUNGS: They are clear on the right with some crackles and decreased breath sounds on the left. HEART: Irregular. ABDOMEN: Soft, nontender. Positive bowel sounds except for some mild tenderness around his PEG site, but looks okay with no signs of infection. EXTREMITIES: Without clubbing, cyanosis, or edema. IV site without signs of inflammation. SKIN: No skin lesions or rashes are noted. LABORATORY DATA: His white blood cell count was 16.3 yesterday and is 15.9 today with a hematocrit of 24.5, platelets 231, normal differential. No white count. BUN and creatinine are 24 and 0.81. Procalcitonin 0.17. Cultures are pending. IMPRESSION: Acute respiratory worsening with a whiteout on the chest x-ray that I feel is most likely due to mucous plug and not infection, particularly with a low procalcitonin. He will likely grow bacteria from tracheal aspirate and urine, but I think these reflect colonization. RECOMMENDATIONS: 1. No antibiotics recommended at this time. We will stop them. 2. We will follow up on the cultures tomorrow to make sure we are not missing something. 3. Re-evaluate tomorrow off antibiotics and reconsider if he is clinically worsens in any way. Finally, I will follow the patient with you. I appreciate very much your consulting on this patient. ANA ROSA Suni Alonso M.D. / [id number] CC: Isaac Euceda M.D.
--- NOTE | ~2016-11-10 | DS ---
Discharge Summary [place] [id number] [facility] [place]. [address] NAME: FABIANA SPENCER : 44 STATUS : DIS IN PAT#: [id number] AGE: 76 ADM/REG DATE : 11/10/16 MR#: [id number] REPORT SERV DATE: 11/20/16 DICTATED BY: FERNANDO MICHELLE DATE: 11/19/16 REPORT STATUS : Draft TRANSCRIBED BY: MODL DATE: 11/19/16 ADMISSION DATE: 11/10/2016 DISCHARGE DATE: 11/19/2016 PROCEDURES DONE: 1. On 11/02/2016 chest x-ray: Recurrent or exacerbation congestive failure changes, developed left pleural effusion and cardiomegaly. Tubes and lines are in place. Chronic dislocation fracture right shoulder. 2. On 11/11/2016 chest x-ray: Decreased left pleural effusion with partial re-expansion of the left lung and no pneumothorax. 3. On 11/12/2016 chest x-ray: Stable opacification of left chest and no significant changes otherwise compared to 6:57 a.m. 4. On 11/13/2016 chest x-ray: Following what was probably being a bronchial lavage, there is some improved aeration of the left lung field. Mediastinal structures have shifted back toward the midline. There is some aeration. There is however large amount of residual alveolar density, pleural fluid present consistent with underlying disease, effusion and probable pneumonia. 5. On 11/15/2016 severe diffuse bilateral asymmetric infiltrates. Left lung is improving. Right lung bases worse than previous exam. 6. On 11/17/2016 chest x-ray: Mild internal improvement of diffuse left lung infiltrate with persistent small left pleural effusion. Minimal right basal atelectasis or infiltrate appearing unchanged. Medical appliances appear unchanged. Chronic appearing displaced right femoral neck fracture. CONSULT: 1. Marshall Gardner DO for Pulmonary. 2. Galileo Duggan M.D. for ID. On 11/02/2016, operative report. PROCEDURE: Bronchoscopy. PREOPERATIVE DIAGNOSIS: Left lung atelectasis and mucus plug. POSTOPERATIVE DIAGNOSIS: Left lung atelectasis and mucus plug. REASON FOR ADMISSION: Ventilator-associated pneumonia. 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 The patient was admitted Discharge [address] [address] NAME: FABIANA SPENCER : 44 STATUS : DIS IN PAT#: [id number] AGE: 76 ADM/REG DATE : 11/10/16 MR#: [id number] REPORT SERV DATE: 11/20/16 DICTATED BY: FERNANDO MICHELLE DATE: 11/19/16 REPORT STATUS : Draft TRANSCRIBED BY: JORDAN DATE: 11/19/16 for ventilator-associated pneumonia. The patient was admitted in MICU due to the patient's hypoxemia. Subsequent chest x-ray shows opacification of the left lung. The patient underwent bronchoscopy on 11/11/2015, which subsequently improved the left lung. In addition, Infectious Disease was consulted regarding the patient's ventilator-associated pneumonia. Infectious Disease recommended stopping antibiotics and follow cultures. The patient did not grow anything significant in his cultures and therefore the patient has been not receiving antibiotics during his hospital stay. More importantly, attempts were made for placement for the patient. The patient does produce significant thick yellow secretions from his trach. Extensive suction has been done. The patient will be transferred to [facility] [place], [place] for further treatment of the patient's secretions to prevent mucous plug production. DISPOSITION: The patient is feeling fine, no complaints. ACTIVITY: As tolerated. DIET: Via PEG. INSTRUCTIONS UPON DISCHARGE: The patient will follow up with Pulmonary at [facility]. MEDICATIONS UPON DISCHARGE: 1. Lipitor 80 mg p.o. q.h.s. 2. Amiodarone 200 mg p.o. b.i.d. 3. Coreg 25 mg b.i.d. 4. Chlorhexidine solution 12 mL b.i.d. 5. Levemir 5 units subcu b.i.d. 6. NovoLog sliding scale level 2. Check blood sugar a.c. and h.s. 7. Synthroid 50 mcg p.o. q.h.s. 8. Melatonin 3 mg p.o. q.h.s. 9. Prilosec 20 mg p.o. b.i.d. 10.Quetiapine 50 mg b.i.d. 11.DuoNebs 3 mL in nebulizers q.4 hours. 12.Zinc oxide application topical q.h.s. 13.Pancreatic lipase one dose via PEG p.r.n. 14.Bicarb 325 mg p.r.n. 15.Hydralazine 10 mg IV q.6 h. p.r.n. 16.Haldol 2.5 mg IM q.4 hours p.r.n. 17.Tylenol 650 mg via PEG q.6 h. p.r.n. 18.Tylenol suppository q.6 hours p.r.n. DIAGNOSES UPON DISCHARGE: 1. Ventilator-associated pneumonia secondary to mucous plugging. 2. Mucus plugging status post bronch. 3. Acute on chronic ventilator dependent respiratory failure status post trach. 4. Chronic obstructive pulmonary disease. 5. Cerebrovascular accident secondary to bilateral kaci with right-sided hemiparesis and disability, now bed bound. Discharge Summary [address] [address] NAME: FABIANA SPENCER : 44 STATUS : DIS IN PAT#: [id number] AGE: 76 ADM/REG DATE : 11/10/16 MR#: [id number] REPORT SERV DATE: 11/20/16 DICTATED BY: FERNANDO MICHELLE DATE: 11/19/16 REPORT STATUS : Draft TRANSCRIBED BY: JORDAN DATE: 11/19/16 6. Diabetes type 2. 7. Atrial fibrillation status post cardioversion. 8. Cirrhosis. 9. Asbestosis. 10.Interstitial lung disease. 11.History of lupus. 12.Hypothyroid. 13.Hyperlipidemia. FBArtemio/JORDAN Fernando Michelle MD / [id number] CC: Fernando Michelle MD
[~2016-11-10 16:15] MED LIST changes: +JANTOVEN3 MG PO; +NEUR600 PO; +PREDFORTE OPH; +TEARS PURE OPH
[2016-11-10 16:31] LABS: ALLENS TEST Pos; BE (BASE EXCESS) 1.1 MEQ/L (0 +/- 2.5); CARBOXYHEMOGLOBIN 1.6 % (0-3); HCO3 (ACTUAL BICARBONATE) 24.3 MEQ/L (23-27); HEMOBLOGIN CONTENT 7.9 G/DL (14-18); INSTRUMENT SERIAL # 8087; METHEMOGLOBIN 0.2 % (0-3); MODE CMV; O2 CONTENT 10.6 VOL% (18-24); PCO2 (CO2 TENSION) 33 MMHG (35-45); PO2 (O2 TENSION) 79 MMHG (79-93); SAMPLE Arterial; pH 7.49 (7.37-7.43)
[2016-11-10 16:35] LABS: BASOPHILS 0.2 %; BASOPHILS ABSOLUTE 0.04 10/3/uL (0.0-0.16); EOSINOPHILS 2.1 %; EOSINOPHILS ABSOLUTE 0.34 10/3/uL (0.0-0.53); HEMATOCRIT 23.6 % (40.0-51.0); HEMOGLOBIN 7.5 g/dL (13.6-17.8); IMMATURE GRANULOCYTES 0.4 %; IMMATURE GRANULOCYTES ABSOLUTE 0.06 10/3/uL (0.0-0.11); LYMPHOCYTES 13.8 %; LYMPHOCYTES ABSOLUTE 2.24 10/3/uL (0.67-4.30); MEAN CORPUS HGB CONC 31.8 g/dL (32.0-36.0); MEAN CORPUSCULAR HEMOGLOB 29.8 pg (26.0-34.0); MEAN CORPUSCULAR VOLUME 93.7 fL (80-100); MEAN PLATELET VOLUME 11.7 fL (9.2-13.0); MONOCYTES 8.2 %; MONOCYTES ABSOLUTE 1.33 10/3/uL (0.21-1.20); NEUTROPHILS 75.3 %; NEUTROPHILS ABSOLUTE 12.27 10/3/uL (2.02-8.40); RBC DISTRIBUTION WIDTH 20.1 % (12.0-16.0); RED CELL COUNT 2.52 10/6/uL (4.7-6.1)
[2016-11-10 16:37] LABS: ER CBC TAT 0 Hrs 12 Mins; MANUAL DIFF NO %; PLATELET COUNT 222 10/3/uL (150-400); WHITE BLOOD CELLS 16.3 10/3/uL (4.5-10.5)
[2016-11-10 16:44] LABS: ASCORBIC ACID (UR NOT ORDER) 40 (NEG); BILIRUBIN, URINE NEGATIVE (NEG); ER URINALYSIS TAT 0 Hrs 19 Mins; KETONE, URINE NEGATIVE (NEG); LEUKOCYTE ESTERASE(NOT OR LARGE (NEG); NITRITE (URINE) NEG (NEG); WBC (NOT ORDERED) (RFLEX) 36 (0-5)
[2016-11-10 16:46] LABS: CALCIUM, SERUM 8.5 MG/DL (8.5-10.4); CHLORIDE, SERUM 103 MMOL/L (96-112); CO2 (CARBON DIOXIDE) 26 MMOL/L (24-34); GFR AFRICAN AMERICAN 108 ML/MIN (>=60); GFR NON AFRICAN AMERICAN 93 ML/MIN (>=60); POTASSIUM, SERUM 4.3 MMOL/L (3.5-5.3); SODIUM, SERUM 138 MMOL/L (135-148)
[2016-11-10 16:48] LABS: BUN (BLOOD UREA NITROGEN) 23 MG/DL (6-23); GLUCOSE, SERUM 91 MG/DL (60-99)
[2016-11-10 16:59] LABS: LACTATE 0.8 MMOL/L (0.3-2.4)
[2016-11-10 17:51] LABS: PROCALCITONIN 0.17 ng/mL (<0.5)
[2016-11-10] MEDS ORDERED: ACETYLCYSTEINE 20% NAS (19:33)
[2016-11-10] MEDS ORDERED: ZOSYN375 IV (19:34)
[2016-11-10] MEDS ORDERED: SYN.05 PEG (19:35)
[2016-11-10] MEDS ORDERED: COREG25 PEG (19:35)
[2016-11-10] MEDS ORDERED: ZINC OXIDE TOP (19:37)
[2016-11-10] MEDS ORDERED: MENTHOL TOP (19:37)
[2016-11-10] MEDS ORDERED: LEVEMIR SC (19:38)
[2016-11-10] MEDS ORDERED: CORDARONE PO (19:39)
[2016-11-10] MEDS ORDERED: LANSOPRAZOLE PEG (19:40)
[2016-11-10] MEDS ORDERED: MELA3 PEG (19:40)
[2016-11-10] MEDS ORDERED: SEROQUEL50 MG PEG (19:40)
[2016-11-10] MEDS ORDERED: LIPITOR80 MG PEG (19:41)
[2016-11-10] MEDS ORDERED: PERIDEX PO (19:42)
[2016-11-10] MEDS ORDERED: ALBUTEROL0.083 % INH ×2 (19:42→19:48)
[2016-11-10] MEDS ORDERED: PANCRELIPASE PEG (19:43)
[2016-11-10] MEDS ORDERED: NOVOLOG SC (19:43)
[2016-11-10] MEDS ORDERED: SODBICAR10 PEG (19:44)
[2016-11-10] MEDS ORDERED: ONDANSETRON 4 MG IV (19:45)
[2016-11-10] MEDS ORDERED: MORPHINE SUL5 MG/ML IV (19:45)
[2016-11-10] MEDS ORDERED: HYDRALAZINE 10 MG IV (19:46)
[2016-11-10] MEDS ORDERED: HALOPERIDOL IM (19:47)
[2016-11-10] MEDS ORDERED: T PEG (19:48)
[2016-11-10] MEDS ORDERED: ACETSUP650 PR (19:49)
[2016-11-11 04:34] LABS: BASOPHILS 0.3 %; BASOPHILS ABSOLUTE 0.04 10/3/uL (0.0-0.16); EOSINOPHILS ABSOLUTE 0.32 10/3/uL (0.0-0.53); HEMATOCRIT 24.5 % (40.0-51.0); HEMOGLOBIN 7.8 g/dL (13.6-17.8); IMMATURE GRANULOCYTES 0.4 %; IMMATURE GRANULOCYTES ABSOLUTE 0.06 10/3/uL (0.0-0.11); LYMPHOCYTES ABSOLUTE 2.22 10/3/uL (0.67-4.30); MEAN CORPUS HGB CONC 31.8 g/dL (32.0-36.0); MEAN CORPUSCULAR HEMOGLOB 29.9 pg (26.0-34.0); MEAN CORPUSCULAR VOLUME 93.9 fL (80-100); MEAN PLATELET VOLUME 11.3 fL (9.2-13.0); MONOCYTES 8.7 %; MONOCYTES ABSOLUTE 1.39 10/3/uL (0.21-1.20); NEUTROPHILS 74.6 %; NEUTROPHILS ABSOLUTE 11.88 10/3/uL (2.02-8.40); PLATELET COUNT 231 10/3/uL (150-400); RED CELL COUNT 2.61 10/6/uL (4.7-6.1); RETICULOCYTE COUNT 3.3 % (0.5-2.5); RETICULOCYTE COUNT ABSOLUTE 85.9 10/3/uL (20.2-119.8); WHITE BLOOD CELLS 15.9 10/3/uL (4.5-10.5)
[2016-11-11 04:40] LABS: MANUAL DIFF NO %
[2016-11-11 04:44] LABS: INTERNATIONAL NORMAL RATI 1.8 UNITS (-); PARTIAL THROMBO TIME 47.3 SEC (22.5-37.2)
[2016-11-11 05:33] LABS: A/G RATIO 0.3 (0.7-1.9); ALKALINE PHOSPHATASE 158 U/L (45-117); BUN (BLOOD UREA NITROGEN) 24 MG/DL (6-23); CALCIUM, SERUM 8.6 MG/DL (8.5-10.4); CHLORIDE, SERUM 105 MMOL/L (96-112); CO2 (CARBON DIOXIDE) 24 MMOL/L (24-34); CREATININE 0.81 MG/DL (0.70-1.30); FERRITIN 403 NG/ML (26-388); FOLATE 26.3 NG/ML (>5.2); GFR AFRICAN AMERICAN 101 ML/MIN (>=60); GFR NON AFRICAN AMERICAN 88 ML/MIN (>=60); GLOBULIN 5.9 G/DL (2.5-4.1); GLUCOSE, SERUM 81 MG/DL (60-99); IRON BINDING CAPACITY 224 MCG/DL (250-450); IRON, SERUM 23 MCG/DL (35-150); POTASSIUM, SERUM 4.4 MMOL/L (3.5-5.3); SGOT(AST) 30 U/L (5-40); SGPT(ALT) 18 U/L (5-65); SODIUM, SERUM 138 MMOL/L (135-148); TOTAL BILIRUBIN 1.6 MG/DL (0-1.2); TOTAL PROTEIN 7.9 G/DL (6.0-8.5); TROPONIN I 0.02 NG/ML (<0.05)
[2016-11-12 05:36] LABS: BASOPHILS 0.2 %; BASOPHILS ABSOLUTE 0.03 10/3/uL (0.0-0.16); EOSINOPHILS 1.4 %; EOSINOPHILS ABSOLUTE 0.18 10/3/uL (0.0-0.53); IMMATURE GRANULOCYTES 0.2 %; IMMATURE GRANULOCYTES ABSOLUTE 0.03 10/3/uL (0.0-0.11); LYMPHOCYTES 15.2 %; LYMPHOCYTES ABSOLUTE 1.93 10/3/uL (0.67-4.30); MEAN CORPUS HGB CONC 32.2 g/dL (32.0-36.0); MEAN CORPUSCULAR HEMOGLOB 30.4 pg (26.0-34.0); MEAN CORPUSCULAR VOLUME 94.3 fL (80-100); MEAN PLATELET VOLUME 11.2 fL (9.2-13.0); MONOCYTES 10.1 %; MONOCYTES ABSOLUTE 1.29 10/3/uL (0.21-1.20); NEUTROPHILS 72.9 %; NEUTROPHILS ABSOLUTE 9.26 10/3/uL (2.02-8.40); PLATELET COUNT 207 10/3/uL (150-400); RBC DISTRIBUTION WIDTH 20.2 % (12.0-16.0); RED CELL COUNT 2.27 10/6/uL (4.7-6.1); WHITE BLOOD CELLS 12.7 10/3/uL (4.5-10.5)
[2016-11-12 05:37] LABS: HEMATOCRIT 21.4 % (40.0-51.0); HEMOGLOBIN 7.2 g/dL (13.6-17.8); MANUAL DIFF NO %
[2016-11-12 05:52] LABS: BUN (BLOOD UREA NITROGEN) 23 MG/DL (6-23); CALCIUM, SERUM 8.1 MG/DL (8.5-10.4); CHLORIDE, SERUM 108 MMOL/L (96-112); CO2 (CARBON DIOXIDE) 23 MMOL/L (24-34); CREATININE 0.75 MG/DL (0.70-1.30); GFR AFRICAN AMERICAN 105 ML/MIN (>=60); GFR NON AFRICAN AMERICAN 90 ML/MIN (>=60); PHOSPHORUS, SERUM 2.6 MG/DL (2.5-4.5); POTASSIUM, SERUM 3.6 MMOL/L (3.5-5.3); SODIUM, SERUM 142 MMOL/L (135-148)
[2016-11-12 05:54] LABS: GLUCOSE, SERUM 164 MG/DL (60-99)
[2016-11-12 06:35] LABS: PROCALCITONIN 0.27 ng/mL (<0.5)
[2016-11-13 04:37] LABS: BASOPHILS 0.3 %; BASOPHILS ABSOLUTE 0.03 10/3/uL (0.0-0.16); EOSINOPHILS 2.2 %; EOSINOPHILS ABSOLUTE 0.21 10/3/uL (0.0-0.53); HEMATOCRIT 22.7 % (40.0-51.0); IMMATURE GRANULOCYTES 0.2 %; IMMATURE GRANULOCYTES ABSOLUTE 0.02 10/3/uL (0.0-0.11); LYMPHOCYTES 15.7 %; LYMPHOCYTES ABSOLUTE 1.49 10/3/uL (0.67-4.30); MEAN CORPUS HGB CONC 30.8 g/dL (32.0-36.0); MEAN CORPUSCULAR HEMOGLOB 29.5 pg (26.0-34.0); MEAN CORPUSCULAR VOLUME 95.8 fL (80-100); MEAN PLATELET VOLUME 10.7 fL (9.2-13.0); MONOCYTES 9.3 %; MONOCYTES ABSOLUTE 0.88 10/3/uL (0.21-1.20); NEUTROPHILS 72.3 %; NEUTROPHILS ABSOLUTE 6.84 10/3/uL (2.02-8.40); PLATELET COUNT 198 10/3/uL (150-400); RBC DISTRIBUTION WIDTH 19.7 % (12.0-16.0); RED CELL COUNT 2.37 10/6/uL (4.7-6.1); WHITE BLOOD CELLS 9.5 10/3/uL (4.5-10.5)
[2016-11-13 04:39] LABS: MANUAL DIFF NO %
[2016-11-13 04:52] LABS: BUN (BLOOD UREA NITROGEN) 20 MG/DL (6-23); CHLORIDE, SERUM 111 MMOL/L (96-112); CO2 (CARBON DIOXIDE) 25 MMOL/L (24-34); CREATININE 0.73 MG/DL (0.70-1.30); GFR AFRICAN AMERICAN 106 ML/MIN (>=60); GFR NON AFRICAN AMERICAN 91 ML/MIN (>=60); GLUCOSE, SERUM 176 MG/DL (60-99); PHOSPHORUS, SERUM 2.3 MG/DL (2.5-4.5); POTASSIUM, SERUM 3.9 MMOL/L (3.5-5.3); SODIUM, SERUM 144 MMOL/L (135-148)
[2016-11-14 05:14] LABS: BASOPHILS 0.4 %; BASOPHILS ABSOLUTE 0.03 10/3/uL (0.0-0.16); EOSINOPHILS 3.3 %; EOSINOPHILS ABSOLUTE 0.28 10/3/uL (0.0-0.53); HEMATOCRIT 21.4 % (40.0-51.0); IMMATURE GRANULOCYTES 0.2 %; IMMATURE GRANULOCYTES ABSOLUTE 0.02 10/3/uL (0.0-0.11); LYMPHOCYTES 21.5 %; LYMPHOCYTES ABSOLUTE 1.84 10/3/uL (0.67-4.30); MEAN CORPUS HGB CONC 30.8 g/dL (32.0-36.0); MEAN CORPUSCULAR HEMOGLOB 29.7 pg (26.0-34.0); MEAN CORPUSCULAR VOLUME 96.4 fL (80-100); MEAN PLATELET VOLUME 11.1 fL (9.2-13.0); MONOCYTES ABSOLUTE 0.77 10/3/uL (0.21-1.20); NEUTROPHILS 65.6 %; PLATELET COUNT 221 10/3/uL (150-400); RBC DISTRIBUTION WIDTH 19.8 % (12.0-16.0); RED CELL COUNT 2.22 10/6/uL (4.7-6.1); WHITE BLOOD CELLS 8.5 10/3/uL (4.5-10.5)
[2016-11-14 05:18] LABS: HEMOGLOBIN 6.6 g/dL (13.6-17.8); MANUAL DIFF NO %
[2016-11-14 05:27] LABS: BUN (BLOOD UREA NITROGEN) 20 MG/DL (6-23); CALCIUM, SERUM 8.1 MG/DL (8.5-10.4); CHLORIDE, SERUM 110 MMOL/L (96-112); CO2 (CARBON DIOXIDE) 26 MMOL/L (24-34); CREATININE 0.78 MG/DL (0.70-1.30); GFR AFRICAN AMERICAN 103 ML/MIN (>=60); GFR NON AFRICAN AMERICAN 89 ML/MIN (>=60); GLUCOSE, SERUM 177 MG/DL (60-99); POTASSIUM, SERUM 4.1 MMOL/L (3.5-5.3); SGOT(AST) 50 U/L (5-40); SGPT(ALT) 34 U/L (5-65); SODIUM, SERUM 142 MMOL/L (135-148); TOTAL PROTEIN 7.1 G/DL (6.0-8.5)
[2016-11-14 05:29] LABS: A/G RATIO 0.3 (0.7-1.9); ALBUMIN 1.5 G/DL (3.5-5.0); ALKALINE PHOSPHATASE 195 U/L (45-117); GLOBULIN 5.6 G/DL (2.5-4.1); TOTAL BILIRUBIN 0.4 MG/DL (0-1.2)
[2016-11-14 16:44] LABS: HEMATOCRIT 25.8 % (40.0-51.0); HEMOGLOBIN 8.2 g/dL (13.6-17.8)
[2016-11-15 04:41] LABS: BASOPHILS 0.4 %; BASOPHILS ABSOLUTE 0.03 10/3/uL (0.0-0.16); EOSINOPHILS 3.5 %; EOSINOPHILS ABSOLUTE 0.27 10/3/uL (0.0-0.53); HEMOGLOBIN 7.4 g/dL (13.6-17.8); IMMATURE GRANULOCYTES 0.4 %; IMMATURE GRANULOCYTES ABSOLUTE 0.03 10/3/uL (0.0-0.11); LYMPHOCYTES 24.7 %; LYMPHOCYTES ABSOLUTE 1.91 10/3/uL (0.67-4.30); MEAN CORPUS HGB CONC 32.3 g/dL (32.0-36.0); MEAN CORPUSCULAR HEMOGLOB 30.1 pg (26.0-34.0); MONOCYTES 8.4 %; MONOCYTES ABSOLUTE 0.65 10/3/uL (0.21-1.20); NEUTROPHILS 62.6 %; NEUTROPHILS ABSOLUTE 4.85 10/3/uL (2.02-8.40); PLATELET COUNT 216 10/3/uL (150-400); RBC DISTRIBUTION WIDTH 19.2 % (12.0-16.0); RED CELL COUNT 2.46 10/6/uL (4.7-6.1); WHITE BLOOD CELLS 7.7 10/3/uL (4.5-10.5)
[2016-11-15 04:46] LABS: HEMATOCRIT 22.9 % (40.0-51.0); MANUAL DIFF NO %; MEAN CORPUSCULAR VOLUME 93.1 fL (80-100)
[2016-11-15 04:48] LABS: A/G RATIO 0.3 (0.7-1.9); ALBUMIN 1.4 G/DL (3.5-5.0); ALKALINE PHOSPHATASE 187 U/L (45-117); BUN (BLOOD UREA NITROGEN) 20 MG/DL (6-23); CALCIUM, SERUM 8.1 MG/DL (8.5-10.4); CHLORIDE, SERUM 109 MMOL/L (96-112); CO2 (CARBON DIOXIDE) 25 MMOL/L (24-34); CREATININE 0.75 MG/DL (0.70-1.30); GFR AFRICAN AMERICAN 105 ML/MIN (>=60); GFR NON AFRICAN AMERICAN 90 ML/MIN (>=60); GLOBULIN 5.3 G/DL (2.5-4.1); GLUCOSE, SERUM 166 MG/DL (60-99); SGOT(AST) 44 U/L (5-40); SGPT(ALT) 30 U/L (5-65); SODIUM, SERUM 142 MMOL/L (135-148); TOTAL BILIRUBIN 0.7 MG/DL (0-1.2); TOTAL PROTEIN 6.7 G/DL (6.0-8.5)
[2016-11-16 05:45] LABS: BASOPHILS 0.4 %; BASOPHILS ABSOLUTE 0.04 10/3/uL (0.0-0.16); EOSINOPHILS 2.4 %; EOSINOPHILS ABSOLUTE 0.25 10/3/uL (0.0-0.53); HEMATOCRIT 24.1 % (40.0-51.0); HEMOGLOBIN 7.6 g/dL (13.6-17.8); IMMATURE GRANULOCYTES 0.3 %; IMMATURE GRANULOCYTES ABSOLUTE 0.03 10/3/uL (0.0-0.11); LYMPHOCYTES 23.2 %; LYMPHOCYTES ABSOLUTE 2.38 10/3/uL (0.67-4.30); MEAN CORPUS HGB CONC 31.5 g/dL (32.0-36.0); MEAN CORPUSCULAR HEMOGLOB 29.3 pg (26.0-34.0); MEAN CORPUSCULAR VOLUME 93.1 fL (80-100); MEAN PLATELET VOLUME 10.9 fL (9.2-13.0); MONOCYTES 7.3 %; MONOCYTES ABSOLUTE 0.75 10/3/uL (0.21-1.20); NEUTROPHILS 66.4 %; NEUTROPHILS ABSOLUTE 6.82 10/3/uL (2.02-8.40); PLATELET COUNT 237 10/3/uL (150-400); RBC DISTRIBUTION WIDTH 18.6 % (12.0-16.0); RED CELL COUNT 2.59 10/6/uL (4.7-6.1); WHITE BLOOD CELLS 10.3 10/3/uL (4.5-10.5)
[2016-11-16 05:46] LABS: MANUAL DIFF NO %
[2016-11-16 06:04] LABS: A/G RATIO 0.3 (0.7-1.9); ALBUMIN 1.5 G/DL (3.5-5.0); ALKALINE PHOSPHATASE 192 U/L (45-117); BUN (BLOOD UREA NITROGEN) 18 MG/DL (6-23); CHLORIDE, SERUM 109 MMOL/L (96-112); CO2 (CARBON DIOXIDE) 25 MMOL/L (24-34); CREATININE 0.75 MG/DL (0.70-1.30); GFR AFRICAN AMERICAN 105 ML/MIN (>=60); GFR NON AFRICAN AMERICAN 90 ML/MIN (>=60); GLOBULIN 5.8 G/DL (2.5-4.1); GLUCOSE, SERUM 171 MG/DL (60-99); POTASSIUM, SERUM 4.1 MMOL/L (3.5-5.3); SGOT(AST) 41 U/L (5-40); SGPT(ALT) 34 U/L (5-65); SODIUM, SERUM 142 MMOL/L (135-148); TOTAL BILIRUBIN 0.4 MG/DL (0-1.2); TOTAL PROTEIN 7.3 G/DL (6.0-8.5)
[2016-11-17 05:27] LABS: BASOPHILS 0.4 %; BASOPHILS ABSOLUTE 0.04 10/3/uL (0.0-0.16); EOSINOPHILS 3.1 %; EOSINOPHILS ABSOLUTE 0.34 10/3/uL (0.0-0.53); HEMOGLOBIN 7.6 g/dL (13.6-17.8); IMMATURE GRANULOCYTES 0.5 %; IMMATURE GRANULOCYTES ABSOLUTE 0.05 10/3/uL (0.0-0.11); LYMPHOCYTES 19.3 %; LYMPHOCYTES ABSOLUTE 2.12 10/3/uL (0.67-4.30); MEAN CORPUS HGB CONC 31.7 g/dL (32.0-36.0); MEAN CORPUSCULAR HEMOGLOB 29.6 pg (26.0-34.0); MEAN CORPUSCULAR VOLUME 93.4 fL (80-100); MEAN PLATELET VOLUME 10.9 fL (9.2-13.0); MONOCYTES 6.6 %; MONOCYTES ABSOLUTE 0.73 10/3/uL (0.21-1.20); NEUTROPHILS 70.1 %; NEUTROPHILS ABSOLUTE 7.72 10/3/uL (2.02-8.40); PLATELET COUNT 242 10/3/uL (150-400); RBC DISTRIBUTION WIDTH 18.5 % (12.0-16.0); RED CELL COUNT 2.57 10/6/uL (4.7-6.1)
[2016-11-17 05:36] LABS: MANUAL DIFF NO %
[2016-11-17 05:44] LABS: A/G RATIO 0.3 (0.7-1.9); ALBUMIN 1.6 G/DL (3.5-5.0); BUN (BLOOD UREA NITROGEN) 18 MG/DL (6-23); CHLORIDE, SERUM 106 MMOL/L (96-112); CO2 (CARBON DIOXIDE) 25 MMOL/L (24-34); CREATININE 0.65 MG/DL (0.70-1.30); GFR AFRICAN AMERICAN 111 ML/MIN (>=60); GFR NON AFRICAN AMERICAN 96 ML/MIN (>=60); GLOBULIN 5.3 G/DL (2.5-4.1); GLUCOSE, SERUM 142 MG/DL (60-99); PHOSPHORUS, SERUM 2.5 MG/DL (2.5-4.5); SGOT(AST) 41 U/L (5-40); SGPT(ALT) 32 U/L (5-65); SODIUM, SERUM 142 MMOL/L (135-148); TOTAL BILIRUBIN 0.7 MG/DL (0-1.2); TOTAL PROTEIN 6.9 G/DL (6.0-8.5)
[2016-11-17 05:45] LABS: ALKALINE PHOSPHATASE 154 U/L (45-117)
[2016-11-18 05:23] LABS: BASOPHILS 0.3 %; BASOPHILS ABSOLUTE 0.03 10/3/uL (0.0-0.16); EOSINOPHILS 3.6 %; EOSINOPHILS ABSOLUTE 0.43 10/3/uL (0.0-0.53); HEMATOCRIT 24.5 % (40.0-51.0); HEMOGLOBIN 7.7 g/dL (13.6-17.8); IMMATURE GRANULOCYTES 0.3 %; IMMATURE GRANULOCYTES ABSOLUTE 0.04 10/3/uL (0.0-0.11); LYMPHOCYTES 19.8 %; LYMPHOCYTES ABSOLUTE 2.38 10/3/uL (0.67-4.30); MEAN CORPUS HGB CONC 31.4 g/dL (32.0-36.0); MEAN CORPUSCULAR HEMOGLOB 29.4 pg (26.0-34.0); MEAN CORPUSCULAR VOLUME 93.5 fL (80-100); MEAN PLATELET VOLUME 10.8 fL (9.2-13.0); MONOCYTES 6.3 %; MONOCYTES ABSOLUTE 0.75 10/3/uL (0.21-1.20); NEUTROPHILS 69.7 %; NEUTROPHILS ABSOLUTE 8.36 10/3/uL (2.02-8.40); PLATELET COUNT 268 10/3/uL (150-400); RBC DISTRIBUTION WIDTH 18.7 % (12.0-16.0); RED CELL COUNT 2.62 10/6/uL (4.7-6.1)
[2016-11-18 05:27] LABS: MANUAL DIFF NO %
[2016-11-18 05:29] LABS: ALBUMIN 1.7 G/DL (3.5-5.0); BUN (BLOOD UREA NITROGEN) 18 MG/DL (6-23); CALCIUM, SERUM 8.4 MG/DL (8.5-10.4); CHLORIDE, SERUM 106 MMOL/L (96-112); CO2 (CARBON DIOXIDE) 24 MMOL/L (24-34); CREATININE 0.68 MG/DL (0.70-1.30); GFR AFRICAN AMERICAN 109 ML/MIN (>=60); GFR NON AFRICAN AMERICAN 94 ML/MIN (>=60); GLUCOSE, SERUM 133 MG/DL (60-99); POTASSIUM, SERUM 4.3 MMOL/L (3.5-5.3); SODIUM, SERUM 140 MMOL/L (135-148)
[2016-11-18 05:31] LABS: PHOSPHORUS, SERUM 3.3 MG/DL (2.5-4.5)
[2016-11-18 17:17] LABS: BUN (BLOOD UREA NITROGEN) 19 MG/DL (6-23); CALCIUM, SERUM 8.2 MG/DL (8.5-10.4); CHLORIDE, SERUM 105 MMOL/L (96-112); CO2 (CARBON DIOXIDE) 24 MMOL/L (24-34); CREATININE 0.75 MG/DL (0.70-1.30); GFR AFRICAN AMERICAN 105 ML/MIN (>=60); GFR NON AFRICAN AMERICAN 90 ML/MIN (>=60); GLUCOSE, SERUM 170 MG/DL (60-99); POTASSIUM, SERUM 4.3 MMOL/L (3.5-5.3); SODIUM, SERUM 139 MMOL/L (135-148)
[2016-11-19 06:53] LABS: BASOPHILS 0.3 %; BASOPHILS ABSOLUTE 0.04 10/3/uL (0.0-0.16); EOSINOPHILS 2.5 %; EOSINOPHILS ABSOLUTE 0.31 10/3/uL (0.0-0.53); HEMOGLOBIN 7.5 g/dL (13.6-17.8); IMMATURE GRANULOCYTES 0.6 %; IMMATURE GRANULOCYTES ABSOLUTE 0.07 10/3/uL (0.0-0.11); LYMPHOCYTES 18.2 %; LYMPHOCYTES ABSOLUTE 2.29 10/3/uL (0.67-4.30); MEAN CORPUS HGB CONC 31.3 g/dL (32.0-36.0); MEAN CORPUSCULAR HEMOGLOB 29.2 pg (26.0-34.0); MEAN CORPUSCULAR VOLUME 93.4 fL (80-100); MONOCYTES 6.3 %; MONOCYTES ABSOLUTE 0.79 10/3/uL (0.21-1.20); NEUTROPHILS 72.1 %; NEUTROPHILS ABSOLUTE 9.09 10/3/uL (2.02-8.40); PLATELET COUNT 265 10/3/uL (150-400); RBC DISTRIBUTION WIDTH 18.5 % (12.0-16.0); RED CELL COUNT 2.57 10/6/uL (4.7-6.1); WHITE BLOOD CELLS 12.6 10/3/uL (4.5-10.5)
[2016-11-19 06:54] LABS: MANUAL DIFF NO %
[2016-11-19 07:00] LABS: BUN (BLOOD UREA NITROGEN) 21 MG/DL (6-23); CALCIUM, SERUM 8.1 MG/DL (8.5-10.4); CHLORIDE, SERUM 103 MMOL/L (96-112); CO2 (CARBON DIOXIDE) 24 MMOL/L (24-34); CREATININE 0.91 MG/DL (0.70-1.30); GFR AFRICAN AMERICAN 96 ML/MIN (>=60); GFR NON AFRICAN AMERICAN 83 ML/MIN (>=60); GLUCOSE, SERUM 148 MG/DL (60-99); PHOSPHORUS, SERUM 3.3 MG/DL (2.5-4.5); POTASSIUM, SERUM 4.2 MMOL/L (3.5-5.3); SODIUM, SERUM 138 MMOL/L (135-148)
== END 2016-11-19 15:38 | DRG 207 ==
LOC: ER 16:15 → IMCU 20:16
PROVIDERS: Emergency Medicine; Hospitalist; Internal Medicine
PROC: 0BC78ZZ Extirpation of Matter from Left Main Bronchus, Via Natural or Artificial Opening Endoscopic (ICD-10-PCS; principal; 2016-11-11)
PROC: 5A1955Z Respiratory Ventilation, Greater than 96 Consecutive Hours (ICD-10-PCS; 2016-11-11)
PROC: 0BC38ZZ Extirpation of Matter from Right Main Bronchus, Via Natural or Artificial Opening Endoscopic (ICD-10-PCS; 2016-11-11)
DX: T17.590A Other foreign object in bronchus causing asphyxiation, initial encounter (principal); J95.851 Ventilator associated pneumonia; J96.21 Acute and chronic respiratory failure with hypoxia; A41.9 Sepsis, unspecified organism; I48.2 Chronic atrial fibrillation; E11.9 Type 2 diabetes mellitus without complications; J44.9 Chronic obstructive pulmonary disease, unspecified; N39.0 Urinary tract infection, site not specified; J96.22 Acute and chronic respiratory failure with hypercapnia; J98.11 Atelectasis; Z93.0 Tracheostomy status; Y83.8 Other surgical procedures as the cause of abnormal reaction of the patient, or of later complication, without mention of misadventure at the time of the procedure; Y92.239 Unspecified place in hospital as the place of occurrence of the external cause; J61 Pneumoconiosis due to asbestos and other mineral fibers; I10 Essential (primary) hypertension; Z86.73 Personal history of transient ischemic attack (TIA), and cerebral infarction without residual deficits; E83.42 Hypomagnesemia
CPT/HCPCS: 31646; 31720; 36415; 36600; 71010; 80048; 80053; 80069; 80200; 81001; 82607; 82728; 82746; 82805; 82962; 83540; 83550; 83605; 83735; 84100; 84145; 84443; 84484; 85014; 85018; 85025; 85045; 85610; 85730; 86850; 86900; 86901; 86920; 87040; 87070; 87077; 87086; 87102; 87186; 87205; 87493; 87493-59; 87641; 94002; 94003; 94640; 94667; 94668; 96365; 96375; 97163-GP; 97166-GO; 99285; A9270-GY; J0692; J1200; J1630; J2405; J2543; J3260; J3370; P9016